=== PATIENT | female | born 1985 | race Caucasian/White ===

== ENCOUNTER 2023-12-27 08:05 | Outpatient (OUT) | payer OTHER, SELFPAY ==
[2023-12-27 09:35] LABS: Alanine Aminotransferase 21 U/L (14-59); Albumin Globulin Ratio 0.9; Albumin Level 3.3 g/dL (3.4-5.0); Alkaline Phosphatase 73 U/L (46-116); Anion Gap 11.4; Aspartate Amino Transferase 11 U/L (15-37); BUN Creatinine Ratio 11.5; Bilirubin Total 0.2 mg/dL (0.2-1.0); Calcium 8.7 mg/dL (8.5-10.1); Carbon Dioxide 28.7 mmol/L (21.0-32.0); Chloride 105 mmol/L (98-107); Chol HDL Ratio 5.4; Cholesterol 209 mg/dL (<=200); Estimated GFR (African America >60 (>=60); Estimated GFR (Non-African Ame >60 (>=60); Globulin 3.6 g/dL; Glucose 92 mg/dL (74-106); HDL Cholesterol 39 mg/dL (40-60); Potassium 4.1 mmol/L (3.5-5.1); Sodium 141 mmol/L (136-145); Thyroid Stimulating Hormone 1.292 uIU/mL (0.358-3.740); Total Protein 6.9 g/dL (6.4-8.2); Triglycerides 110 mg/dL (<=150)
== END 2023-12-27 08:06 | disposition home or self-care (01) ==
DX: Z79.899 Other long term (current) drug therapy (principal)
CPT/HCPCS: 36415; 80053; 80061; 84436; 84443

== ENCOUNTER 2025-01-02 08:08 | Emergency (ER) | payer OTHER, SELFPAY ==
[2025-01-02 08:13] VITALS: BP 135/97; PULSE 96; TEMP 36.9; O2SAT 100; BMI 29.3
--- OUTSIDE RECORDS SUMMARY | 2025-01-02 08:17 | XMS_ITS | CCD ---
Author Organization [facility] Care Team Providers [employer] Professional Name Role Phone NO FAMILY, PHYSICIAN Primary Care Provider Unava DO Mauri Rich Emergency Provider Sol marquez NO FAMILY, PHYSICIAN Primary Care Provider Unava DO Mauri Rich Emergency Provider MD Brandon Oliver Attending Provider [phone] [facility] Primary Care Provide r DO Marie Zelaya Emergency Provider [phone] NO FAMILY, PHYSICIAN Primary Care Provider Unava ilISIDRO [place] Emergency Provider NO FAMILY, PHYSICIAN Primary Care Provider Unava MD Brandon Choi Attending Provider DO Misael Newell Emergency Provider [facility] Primary Care Provide r NO FAMILY, PHYSICIAN Primary Care Provider UnaMD Brandon Wayne Attending Provider DO Hope Moon Attending Provider KIRAN RICCI Admitting Unavaila ble KIRAN RICCI Attending Unavaila ble DELON DALE Consulting Unavailable NO FAMILY, PHYSICIAN Primary Care Provider UnaBrandon Wayne MD Attending Provider [phone] [facility] Primary Care Provide r Radha Akhtar MD Emergency Provider Pelon LYLE, Luis Alberto Admit Provider Pelon LYLE, Luis Alberto Attending Provider [phone] Sravani Allen Attending Unavailable RADHA CHAUDHRY Referring Unavailable Radha Barlow Attending Unavailable NO FAMILY, PHYSICIAN Primary Care Provider Unava ilable Brandon Parson MD Attending Provider Brandon Parson MD Attending Provider Marie Zelaya DO Emergency Provider NO FAMILY, PHYSICIAN Primary Care Provider Unava ilable Misael Newell DO Emergency Provider [phone] Brandon Parson MD Admit Provider NO FAMILY, PHYSICIAN Primary Care Provider Unava ilable NO FAMILY, PHYSICIAN Primary Care Unavailable Luis Alberto Bird Attending Unavailable Brandon Parson Admitting Unavailab Lien Prado Consulting Unavailable Lyndsey Colbert Consulting Unavailable Anne Marie Brasher Consulting Unavailable Patricia Sarah Consulting Unavailable Tori Browning Consulting Unavailable Amanda Acosta Consulting Unavailable Josh Ricketts Consulting Unavailable Raudel Smith Consulting Unavailable Tadeo Toney Consulting UnavailMax Snyder Consulting Unavailable Suellen Regan Consulting Unavailable Pito Fregoso Consulting Unavailable Boni Lamb Consulting Unavailable Darshana Castaneda Consulting UnavailTony Mckeon Consulting Unavailable Maulik Tanner Consulting Unavailable Toney Marshall Consulting Unavailable Sade Payton Consulting Unavailable Pito Simon Consulting Unavailable Arianna Roldan Consulting Unavailable Maynor Metzger Consulting Unavailable Carola Sutherland Consulting Unavailable Rosendo Mueller Consulting Unavailable Mario Hawthorne Consulting Unavailab Rod Qiu Consulting Unavailable Jorge De Oliveira Consulting Unavailable Andreina Cooley Consulting Unavailable Jordy Friedman Consulting Unavailable Chelsea Beckwith Consulting Unavailable Ken Bennett Consulting Unavailable Obeze Shaila Consulting Unavailable Adonis Goodman Consulting Unavailable Daromar, Obayedel Amaya Consulting Unavailable Marilyn Velez Consulting Unavailable Carly Morgan Consulting Unavailable Piyush Matos Consulting Unavailable Jonh Barnes Consulting Unavailable Brett Raygoza Consulting Unavailable Mackenzie Hua Consulting Unavailable Kei De Oliveira Consulting Unavailable Keya Champagne Consulting Unava ilable Lamar Lewis Consulting Unavailable Radha Sanchez Consulting Unavailable Andrew Cody Consulting Unavailable Gio Hernandez Consulting Unavailable Boni Toledo Consulting Unavailable Antonio Guan Consulting Unavailable Gwendolyn Koch Consulting Unavailable [place] Consulting Unavaila Anna Cox Consulting Unavailable Misael Newell Attending Unavailable [facility] Unav ailable Misael Newell Admitting Unavailable Luis E Brewster Attending Unavailable [facility] Unav ailable Luis E Brewster Admitting Unavailable Hope Moon Admitting Unavailable [facility] Unav ailable Hope Moon Attending Unavailable NO FAMILY, PHYSICIAN Primary Care Unavailable Brandon Parson Admitting Unavailab Brandon Blanco Attending Unavailab Marie Hernandez Attending Unavailable Marie Zelaya Admitting Unavailable [facility] Unav ailable Marie Zelaya Admitting Unavailable Marie Zelaya Attending Unavailable [facility] Unav ailable Brandon Parson Attending Unavailab Luis Alberto Johnson Admitting Unavailable [facility] Unav ailable Allergies Allergy Classification Reported Allergen(s) Allergy Type Date of Onset Reaction(s) Facility (10 sources) [place]; Translations: [lithium] Drug Allergy 3 Unknown Reaction [facility] (10 sources) predniSONE; Translations: [prednisone] Drug Allergy 3 Agitated [facility] (7 sources) Latex; Translations: [latex] Allergy to substance 4 Hives [facility] Medications Current Medications Medication Drug Class(es) Dates Sig (Normalized) Sig (Original) Acidophilus Probiotic Blend (2 sources) Start: 06-02-2024 Acidophilus Probiotic Blend Oral, Daily, Refill(s) 0 Start Date: 06/02/24 Status: Ordered cyclobenzaprine hydrochloride 5 mg oral tablet (1 source) Muscle Relaxant Start: 12-08-2024 take 1 tablet by mouth twice daily Cyclobenzaprine 5 mg tablet Active 5 MG PO Twice daily December 08, 2024 12:00am fluPHENAZine hydrochloride 5 mg oral tablet (2 sources) Phenothiazine Start: 12-08-2024 take 1 tablet by mouth once daily at bedtime Fluphenazine Hcl 5 mg tablet Active 5 MG PO Daily at bedtime December 08, 2024 12:00am Start: 12-08-2024 take 1 tablet by davion th once daily Fluphenazine Hcl 2.5 mg Tablet Active 2.5 MG PO Daily December 08, 2024 12:00am hydrOXYzine pamoate 50 mg oral capsule (1 source) Antihistamine Start: 12-08-2024 take 1 capsule by mouth every six hours as needed for anxiety Hydroxyzine Pamoate 50 mg Capsule Active 50 MG PO Q6H as needed for Anxiety December 08, 2024 12:00am magnesium amino acid chelate (2 sources) Start: 06-02-2024 magnesium amino acids chelate Oral, Refills(s) 0 Start Date: 06/02/24 Status: Ordered nicotine 2 mg chewing gum (1 source) Cholinergic Nicotinic Agonist Start: 12-08-2024 Nicotine (Polacrilex) 2 mg Gum Active 2 MG BUCCAL Q2H as needed for Nicotine Cravings December 08, 2024 12:00am Kirkman (No Known Home Meds) (1 source) Start: 12-02-2024 Kirkman (No Known Home Meds) Active December 02, 2024 12:00am OXcarbazepine 300 mg oral tablet (4 sources) Anti-epileptic Agent Start: 12-08-2024 take 1 tablet by mouth once daily at bedtime Oxcarbazepine 300 mg Tablet Active 300 MG PO Daily at bedtime December 08, 2024 12:00am Start: 09-22-2024 End: 12-02-2024 take 1 tablet by mouth twice daily Oxcarbazepine 150 mg Tablet Discontinued 150 MG PO Twice daily September 22, 2024 12:00am December 02, 2024 5:53pm Vitamin B Complex oral capsu le (2 sources) Start: 06-02-2024 Vitamin B Comp dipti oral capsule Oral, Daily, Refill(s) 0 Start Date: 06/02/24 Status: Ordered Vitamin D3 (2 sources) Start: 06-02-2024 Vitamin D3 Ref ills(s) 0 Start Date: 06/02/24 Status: Ordered Completed/Discontinued Medications Medication Drug Class(es) Dates Sig (Normalized) Sig (Original) loperamide hydrochloride 2 mg oral capsule (9 sources) Opioid Agonist Start: 10-29-2023 End: 03-30-2024 take 1 capsule by mouth every six hours as needed Loperamide (Imodium A-D) 2 mg capsule Discontinued 2 MG PO Q6H as needed for loose stool 20 October 29, 2023 12:00am March 30, 2024 5:42pm naproxen 500 mg oral tablet (9 sources) Nonsteroidal Anti-inflammatory Drug Start: 10-29-2023 End: 03-30-2024 take 1 tablet by mouth twice daily as needed for pain Naproxen (Naprosyn) 500 mg tablet Discontinued 500 MG PO Twice daily as needed for pain 10 October 29, 2023 12:00am March 30, 2024 5:42pm omeprazole 20 mg delayed release oral capsule (2 sources) Proton Pump Inhibitor Start: 05-28-2024 omeprazole 20 mg Cap-DR 30 EA, 0 Refill(s), TAKE 1 CAPSULE BY MOUTH TWICE A DAY BEFORE A MEAL, Refills(s) 0 Start Date: 05/28/24 Status: Ordered ondansetron 4 mg oral tablet (9 sources) Serotonin-3 Receptor Antagonist Start: 10-29-2023 End: 03-30-2024 take 1 tablet by mouth every eight hours as needed for nausea and vomiting Ondansetron Hcl 4 mg tablet Discontinued 4 MG PO Q8H as needed for nausea and vomiting 12 October 29, 2023 12:00am March 30, 2024 5:42pm 24 hr paliperidone 6 mg extended release oral tablet (3 sources) Atypical Antipsychotic Start: 09-22-2024 End: 12-02-2024 take 1 tablet by mouth once daily at bedtime Paliperidone 6 mg Tablet Extended Release 24hr Discontinued 6 MG PO Daily at bedtime 15 September 22, 2024 12:00am December 02, 2024 5:53pm Problems Active Problems Problem Classification Problem Date Documented Da te Episodic/Chronic Attention-deficit, conduct, and disruptive behavior disorders (2 sources) Attention deficit hyperactivity disorder 05-28-2024 Chronic Esophageal disorders (2 sources) Gastroesophageal reflux disease without esophagitis 05-28-2024 Chronic Genitourinary symptoms and ill-defined conditions (6 sources) Stress incontinence (female) (male); Translations: [Urge incontinence] Onset: Chronic Headache; including migraine (9 sources) Headache; Translations: [Headache] 10-29-2023 Episodic Mood disorders (10 sources) Bipolar disorder; Translations: [Manic disorder, single episode] Onset: 5 05-28-2024 Chronic Nausea and vomiting (9 sources) Nausea; Translations: [Nausea] 10-29-2023 Episodic Osteoarthritis (2 sources) Osteoarthritis 05-28-2024 Chronic Other connective tissue disease (6 sources) Pain in lower limb; Translations: [Pain in leg, unspecified] 03-30-2024 Episodic Other connective tissue disease (2 sources) Fibromyalgia 05-28-2024 Episodic Other gastrointestinal disorders (9 sources) Diarrhea; Translations: [Diarrhea, unspecified] 10-29-2023 Episodic Schizophrenia and other psychotic disorders (10 sources) Schizoaffective disorder; Translations: [Schizoaffective disorder, unspecified] Onset: 05-28-2024 Chronic Urinary tract infections (2 sources) Urinary tract infectious disease; Translations: [Urinary tract infection, site not specified] 12-02-2024 Episodic Viral infection (2 sources) Herpes simplex 05-28-2024 Episodic Past or Other Problems Problem Classification Problem Date Documented Date Episodic/Chronic Genitourinary symptoms and ill-defined conditions (1 source) Other symptoms and signs involving the genitourinary system; Translations: [Other symptoms and signs involving the genitourinary system] Onset: 05-22-2024 Episodic Malaise and fatigue (8 sources) Fatigue; Translations: [Other fatigue] Onset: 01-23-2024 01-28-2024 Episodic Nonspecific chest pain (7 sources) Atypical chest pain; Translations: [Other chest pain] Onset: 03-30-2024 03-30-2024 Episodic Other connective tissue disease (1 source) Pain in left thigh; Translations: [Pain in left thigh] Onset: 03-30-2024 Episodic Other connective tissue disease (1 source) Fibromyalgia; Translations: [Fibromyalgia] Onset: 01-28-2024 Episodic Other lower respiratory disease (1 source) Shortness of breath; Translations: [Shortness of breath] Onset: 03-30-2024 Episodic Schizophrenia and other psychotic disorders (10 sources) Brief psychotic disorder; Translations: [Acute psychosis] Onset: 08-13-2024 09-14-2024 Episodic Results Test Name Value Interpretation Reference Range Facility Cholesterol [Mass/volume] in Serum or PlasmaOrdered By: Brandon Parson on 12-03-2024 Cholesterol [Mass/Vol] Cholesterol [Mass /volume] in Serum or Plasma 140-200 [facility] Comment on above: Chol less than 200 m g/dl low riskChol 201-239 mg/dl borderline riskChol 240 mg/dl and greater high risk Cholesterol in HDL [Mass/vol ume] in Serum or PlasmaOrdered By: Brandon Parson on 12-03-2024 Cholesterol in HDL [Mass/Vol] Serum or plasma high density lipoprotein (HDL) cholesterol measurement 23-92 [facility] Comment on above: HDL CHOL ATP-III CLA SSIFICATION Cardiovascular RiskHDL > or equal to 60 mg/dL LOWHDL < 40 mg/dL HIGH Cholesterol in LDL Calc [Mas s/Vol]Ordered By: Brandon Parson on 12-03-2024 Cholesterol in LDL [Mass/Vol] Cholesterol in LDL [Mass/volume] in Serum or Plasma by calculation 0-100 [facility] Comment on above: LDL ATP III CLASSIFI CATIONLDL less than 100 mg/dL OptimalLDL 100-129 mg/dL Near or above optimalLDL 130-159 mg/dL Borderline highLDL 160-189 mg/dL HighLDL greater than 189 mg/dL Very high Cholesterol in VLDL Calc [Ma ss/Vol]Ordered By: Brandon Parson on 12-03-2024 Cholesterol in VLDL [Mass/Vol] Cholesterol in VLDL [Mass/volume] in Serum or Plasma by calculation [facility] ECG 12 lead ECGon 12-03-2024 ECG 12 lead ECG [facility] [address] [place] [address] Electrocardiograph Report Signed Patient: Harriet Patino MR#: [id number] 6 : 1985 Acct:[id number] Age/Sex: 39 / F ADM Date: 12/02/24 Loc: Room: [address] [place] [address] Type: ADM IN Attending Dr: Brandon Pasron MD Ordering Provider: Brandon Parson MD Date of Service: 12/03/24 ECG/ECG 12 lead ECG: new admit Copies to: Test Reason : Blood Pressure : */* mmHG Vent. Rate : 59 BPM Atrial Rate : 59 BPM P-R Int : 130 ms QRS Dur : 86 ms QT Int : 376 ms P-R-T Axes : 67 73 47 degrees QTcB Int : 372 ms Sinus bradycardia with sinus arrhythmia Otherwise normal ECG Confirmed by Shaila Ramos ([id number]) on 12/04/2024 1:51:21 PM Referred By: Electronically Signed By: Shaila Ramos Transcribed By: MUS Signed By Shaila Ramos MD 5 [id number] Normal [facility] Lipid Panelon 12-03-2024 Cholesterol [Mass/Vol] 140 mg/dL Normal 140-200 [facility] Comment on above: Result Comment: Chol less than 200 mg/dl low risk Chol 201-239 mg/dl borderline risk Chol 240 mg/dl and greater high risk Performed By: #### V [id number], TSH3 wRFLX, LIPID #### [facility] [address] [id number] [place] Cholesterol in HDL [Mass/Vol] 36 mg/dL Normal 23-92 [facility] Comment on above: Result Comment: HDL CHOL ATP-III CLASSIFICATION Cardiovascular Risk HDL > or equal to 60 mg/dL LOW HDL < 40 mg/dL HIGH Performed By: #### V [id number], TSH3 wRFLX, LIPID #### [facility] [address] [place] [address] [place] Cholesterol.total/Chol esterol in HDL [Mass ratio] 3.9 {ratio} Normal <5.0 [facility] Comment on above: Performed By: #### V [id number], TSH3 wRFLX, LIPID #### [facility] [address] LDL Cholesterol,Calculated 87 mg/dL Normal 0-100 [facility] Comment on above: Result Comment: LDL ATP III CLASSIFICATION LDL less than 100 mg/dL Optimal LDL 100-129 mg/dL Near or above optimal LDL 130-159 mg/dL Borderline high LDL 160-189 mg/dL High LDL greater than 189 mg/dL Very high Performed By: #### V [id number], TSH3 wRFLX, LIPID #### [facility] [address] Triglyceride w/Reflex 84 mg/dL Normal 0-149 [facility] Comment on above: Result Comment: TRIG ATP III CLASSIFICATION TRIG less than 150 mg/dL Normal TRIG 150-199 mg/dL Borderline high TRIG 200-500 mg/dL High TRIG greater than 500 mg/dL Very high Standard traceable to the Center for Disease Conrtrol and Prevention (CDC) test method. Performed By: #### V [id number], TSH3 wRFLX, LIPID #### [address] VLDL CHOLESTEROL 16 mg/dL Normal [facility] Comment on above: Performed By: #### V [id number], TSH3 wRFLX, LIPID #### [address] Serum or plasma total choles terol/high density lipoprotein (HDL) cholesterol mass ratOrdered By: Brandon Parson on 12-03-2024 Cholesterol.total/Chol esterol in HDL [Mass ratio] Serum or plasma total cholesterol/high density lipoprotein (HDL) cholesterol mass rat <5.0 [facility] Thyroid Stim Hormone w/Rflxo n 12-03-2024 Thyroid Stim Hormone w/Rflx 0.87 u[iU]/mL Normal 0.45-5.33 [facility] Comment on above: Performed By: #### V [id number], TSH3 wRFLX, LIPID #### [address] Thyrotropin [Units/volume] i n Serum or PlasmaOrdered By: Brandon Parson on 12-03-2024 TSH Qn Thyrotropin [Units/v olume] in Serum or Plasma 0.45-5.33 [facility] Triglyceride [Mass/volume] i n Serum or PlasmaOrdered By: Brandon Parson on 12-03-2024 Triglyceride [Mass/Vol] Triglyceride [Mass/volume] in Serum or Plasma 0-149 [facility] Comment on above: TRIG ATP III CLASSIF ICATIONTRIG less than 150 mg/dL NormalTRIG 150-199 mg/dL Borderline highTRIG 200-500 mg/dL High TRIG greater than 500 mg/dL Very highStandard traceable to the Center for Disease Conrtrol and Prevention (CDC) test method. Vitamin D 25 Hydroxy Totalon 12-03-2024 Vitamin D 25 Hydroxy Total 58.0 ng/mL Normal 30-100 [facility] Comment on above: Result Comment: AMANDA MIN D STATUS 25([place])VITAMIN D RANGE (ng/mL) Deficient <20 Insufficient 20 to <30 Sufficient 30 to 100 Reference: Van Henry, Maude CUELLAR, et al. Evaluation,treatment, and prevention of vitamin D deficiency; an Endocrine Society clinical practice guideline. JCEM. 2010; 96(7):1911-30. PERFORMED BY: [place] [address] PATHOLOGIST COMMERCIAL MANAGER ISIDRO CORNELL M.D. Performed By: #### V [id number], TSH3 wRFLX, LIPID #### [facility] [address] Vitamin D+Metabolites [Mass/ volume] in Serum or PlasmaOrdered By: Brandon Parson on 12-03-2024 Vitamin D+Metabolites [Mass/Vol] Vitamin D+Metabolites [Mass/volume] in Serum or Plasma 30-100 [facility] Comment on above: VITAMIN D STATUS 25( [place])VITAMIN D RANGE (ng/mL) Deficient <20 Insufficient 20 to <30Sufficient 30 to 100Reference: Van Henry, Maude CUELLAR, et al. Evaluation,treatment, and prevention of vitamin D deficiency; an Endocrine Society clinical practice guideline. JCEM. 2010; 96(7):1911-30. Amorphous sediment detection in urine sediment by light microscopyOrdered By: Misael Newell on 12-02-2024 Amorphous sediment LM Ql (Urine sed) Amorphous urine sediment [facility] Amphetamine Screen Ql (U)Ord ered By: Misael Newell on 12-02-2024 Amphetamines Ql (U) Amphetamines screen Negativ e [facility] Automated epithelial cells c ount in urine sediment (number/area)Ordered By: Misael Newell on 12-02-2024 Epithelial cells Auto (Urine sed) [#/Area] Automated epithelial cells count in urine sediment (number/area) High 0-2 [facility] Automated leukocytes count i n urine sediment (number/area)Ordered By: Misael Newell on 12-02-2024 WBC Auto (Urine sed) [#/Area] Leukocytes [#/area] in Urine sediment by Automated count High 0-4 [facility] Barbiturates [Presence] in U rine by Screen methodOrdered By: Misael Newell on 12-02-2024 Barbiturates Screen Ql (U) Barbiturates [Presence] in Urine by Screen method Negative [facility] Basic Metabolic Panelon 11-05 Anion gap [Moles/Vol] 11.1 mmol/L Normal 6.0-15.0 [facility] Comment on above: Performed By: #### V [id number], TSH3 wRFLX, LIPID #### [facility] [address] [place] [address] [place] Calcium [Mass/Vol] 9.1 mg/dL Normal 8.6-10.3 [facility] Comment on above: Performed By: #### V [id number], TSH3 wRFLX, LIPID #### [facility] [address] [place] [address] [place] Chloride [Moles/Vol] 107 mmol/L Normal 98-107 [facility] Comment on above: Performed By: #### V [id number], TSH3 wRFLX, LIPID #### [facility] [address] [place] CO2 [Moles/Vol] 26.6 mmol/L Normal 21.0-31.0 [facility] Comment on above: Performed By: #### V [id number], TSH3 wRFLX, LIPID #### [address] Creatinine [Mass/Vol] 0.82 mg/dL Normal 0.60-1.20 [facility] Comment on above: Performed By: #### V [id number], TSH3 wRFLX, LIPID #### [place] [address] [place] Creatinine Clr Calc Pharmacy 85.38 Normal [facility] Comment on above: Result Comment: PERF ORMED BY: [place] [address] PATHOLOGIST COMMERCIAL MANAGER ISIDRO CORNELL M.D. Performed By: #### V [id number], TSH3 wRFLX, LIPID #### [place] [address] [place] GFR/1.73 sq M.predicted MDRD (S/P/Bld) [Vol rate/Area] mL/min/{1.73_m2} Normal [facility] Comment on above: Performed By: #### V [id number], TSH3 wRFLX, LIPID #### [place] [address] [place] Glucose [Mass/Vol] 89 mg/dL Normal 70-100 [facility] Comment on above: Result Comment: [place] Glucose Reference Range is dependent on time and content of last meal. Glucose of more than 200 mg/dL in a nonstressed, ambulatory subject supports the diagnosis of Diabetes Mellitus. ADA recommended reference range Performed By: #### V [id number], TSH3 wRFLX, LIPID #### [place] [address] [place] Potassium [Moles/Vol] 4.7 mmol/L Normal 3.5-5.1 [facility] Comment on above: Performed By: #### V [id number], TSH3 wRFLX, LIPID #### [address] [place] [address] [facility] Sodium [Moles/Vol] 140 mmol/L Normal 136-145 [facility] Comment on above: Performed By: #### V [id number], TSH3 wRFLX, LIPID #### [facility] [address] [id number] [place] Urea nitrogen [Mass/Vol] 10 mg/dL Normal 7-25 [facility] Comment on above: Performed By: #### V [id number], TSH3 wRFLX, LIPID #### [facility] [address] [id number] [place] Basophils Auto (Bld) [#/Vol] Ordered By: Misael Newell on 12-02-2024 Basophils (Bld) [#/Vol] Automated basophil count 0.0-0.2 [facility] Basophils/100 WBC Auto (Bld) Ordered By: Misael Newell on 12-02-2024 Basophils/100 WBC (Bld) Automated basophil % . [facility] Benzodiazepines Screen Ql (U )Ordered By: Misael Newell on 12-02-2024 Benzodiazepines Ql (U) Benzodiazepines [ Presence] in Urine by Screen method Negative [facility] Benzoylecgonine [Presence] i n Urine by Screen methodOrdered By: Misael Newell on 12-02-2024 Benzoylecgonine Screen Ql (U) Benzoylecgonine [Presence] in Urine by Screen method Negative [facility] Bilirubin Test strip Ql (U)O rdered By: Misael Newell on 12-02-2024 Bilirubin Ql (U) Bilirubin.total [Pre sence] in Urine by Test strip Negative [facility] Calcium [Mass/volume] in Ser um or PlasmaOrdered By: Misael Newell on 12-02-2024 Calcium [Mass/Vol] Calcium [Mass/volume ] in Serum or Plasma 8.6-10.3 [facility] Cannabinoids [Presence] in U rine by Screen methodOrdered By: Misael Newell on 12-02-2024 Cannabinoids Screen Ql (U) Cannabinoids [Presence] in Urine by Screen method High Negative [facility] Comment on above: These are unconfirme d results and should not be used for legal purposes. Drug Cut-Off Concentration: AMPH 1000 ng/mL SHEBA 200 ng/mL RADHA 200 ng/mL COCM 300 ng/mL OP 300 ng/mL PCP 25 ng/mL THC 20 ng/mL Carbon dioxide, total [Moles /volume] in Serum or PlasmaOrdered By: Misael Newell on 12-02-2024 CO2 [Moles/Vol] Carbon dioxide, tota l [Moles/volume] in Serum or Plasma 21.0-31.0 [facility] Casts [#/area] in Urine sedi ment by Microscopy low power fieldOrdered By: Misael Newell on 12-02-2024 Casts LM.LPF (Urine sed) [#/Area] Casts [#/area] in Urine sediment by Microscopy low power field None Seen [facility] Chloride [Moles/volume] in S claudio or PlasmaOrdered By: Misael Newell on 12-02-2024 Chloride [Moles/Vol] Chloride [Moles/vol ume] in Serum or Plasma 98-107 [facility] Color Auto (U)Ordered By: Mark Newell on 12-02-2024 Color (U) Color of Urine by Auto Abnormal Yellow [facility] Auto Di ffon 12-02-2024 Basophils (Bld) [#/Vol] 0.1 10*3/uL Normal 0.0-0.2 [facility] Comment on above: Result Comment: PERF ORMED BY: [place] [address] PATHOLOGIST COMMERCIAL MANAGER ISIDRO CORNELL M.D. Performed By: #### B MP, CBC, ETOH #### [place] [address] [place] Basophils/100 WBC (Bld) 1.4 % Normal . [facility] Comment on above: Performed By: #### B MP, CBC, ETOH #### [facility] [address] [place] [address] [place] Eosinophils (Bld) [#/Vol] 0.2 10*3/uL Normal 0.0-0.45 [facility] Comment on above: Performed By: #### B MP, CBC, ETOH #### [place] [address] [place] Eosinophils/100 WBC (Bld) 2.5 % Normal . [facility] Comment on above: Performed By: #### B MP, CBC, ETOH #### [address] Erythrocyte distribution width (RBC) [Ratio] 13.8 % Normal 11.9-15.3 [facility] Comment on above: Performed By: #### B MP, CBC, ETOH #### [address] Hematocrit (Bld) [Volume fraction] 42.5 % Normal 34.0-46.4 [facility] Comment on above: Performed By: #### B MP, CBC, ETOH #### [address] Hemoglobin (Bld) [Mass/Vol] 14.5 g/dL Normal 11.8-15.4 [facility] Comment on above: Performed By: #### B MP, CBC, ETOH #### [address] Lymphocytes (Bld) [#/Vol] 1.5 10*3/uL Normal 1.00-4.8 [facility] Comment on above: Performed By: #### B MP, CBC, ETOH #### [address] Lymphocytes/100 WBC (Bld) 24.4 % Normal . [facility] Comment on above: Performed By: #### B MP, CBC, ETOH #### [address] MCH (RBC) [Entitic mass] 31.6 pg Normal 24.7-34.3 [facility] Comment on above: Performed By: #### B MP, CBC, ETOH #### [address] MCV (RBC) [Entitic vol] 92.7 fL Normal 80-100 [facility] Comment on above: Performed By: #### B MP, CBC, ETOH #### [address] Mean Corpuscular HGB Conc 34.1 g/dL Normal 32.0-35.0 [facility] Comment on above: Performed By: #### B MP, CBC, ETOH #### [place] [address] [place] Monocytes (Bld) [#/Vol] 0.5 10*3/uL Normal 0.0-0.8 [facility] Comment on above: Performed By: #### B MP, CBC, ETOH #### [place] [address] [place] Monocytes/100 WBC (Bld) 17.00 % Normal 0.00-20.00 [facility] Comment on above: Performed By: #### B MP, CBC, ETOH #### [place] [address] [place] Monocytes/100 WBC (Bld) 7.9 % Normal . [facility] Comment on above: Performed By: #### B MP, CBC, ETOH #### [place] [address] [place] Neutrophils (Bld) [#/Vol] 4.0 10*3/uL Normal 1.8-7.7 [facility] Comment on above: Performed By: #### B MP, CBC, ETOH #### [place] [address] [place] Neutrophils/100 WBC (Bld) 63.8 % Normal . [facility] Comment on above: Performed By: #### B MP, CBC, ETOH #### [place] [address] [place] NRBC% 0.1 /100{WBC} Normal 0-0.5 [facility] Comment on above: Performed By: #### B MP, CBC, ETOH #### [address] Platelet mean volume (Bld) [Entitic vol] 7.0 fL Normal 6.3-10.7 [facility] Comment on above: Performed By: #### B MP, CBC, ETOH #### [facility] [address] [place] [address] [place] Platelets (Bld) [#/Vol] 317 10*3/uL Normal 150-450 [facility] Comment on above: Performed By: #### B MP, CBC, ETOH #### [facility] [address] RBC (Bld) [#/Vol] 4.58 10*6/uL Normal 3.60-5.00 [facility] Comment on above: Performed By: #### B MP, CBC, ETOH #### [facility] [address] [place] [address] [place] WBC (Bld) [#/Vol] 6.3 10*3/uL Normal 3.8-11.6 [facility] Comment on above: Performed By: #### B MP, CBC, ETOH #### [address] Creatinine [Mass/volume] in Serum or PlasmaOrdered By: Misael Newell on 12-02-2024 Creatinine [Mass/Vol] Creatinine [Mass/v olume] in Serum or Plasma 0.60-1.20 [facility] Dipstick and Microscopicon 0 12-02-2024 Amorphous Sediment,Urine 2+ Normal [facility] Comment on above: Order Comment: Name Collection Type:: Clean-Voided Midstream Performed By: #### U RDS, UHCG, UA #### [place] [address] [place] Appearance (U) Turbid Critically abnormal Clear [facility] Comment on above: Order Comment: Name Collection Type:: Clean-Voided Midstream Performed By: #### U RDS, UHCG, UA #### [facility] [address] [place] [address] [place] Bacteria,Urine 3+ High None Seen [facility] Comment on above: Order Comment: Name Collection Type:: Clean-Voided Midstream Performed By: #### U RDS, UHCG, UA #### [place] [address] [place] Bilirubin,Urine Negative Normal Negative [facility] Comment on above: Order Comment: Name Collection Type:: Clean-Voided Midstream Performed By: #### U RDS, UHCG, UA #### [facility] [address] [place] [address] [place] Color (U) Dark Yellow Critically abnormal Yellow [facility] Comment on above: Order Comment: Name Collection Type:: Clean-Voided Midstream Performed By: #### U RDS, UHCG, UA #### [facility] [address] [place] [address] [place] Glucose Ql (U) Normal Normal Normal [facility] Comment on above: Order Comment: Name Collection Type:: Clean-Voided Midstream Performed By: #### U RDS, UHCG, UA #### [place] [address] [place] Hyaline Casts,Urine None Seen Normal 0-8 [facility] Comment on above: Order Comment: Name Collection Type:: Clean-Voided Midstream Performed By: #### U RDS, UHCG, UA #### [place] [address] [place] Ketones Ql (U) 1+ High Negative [facility] Comment on above: Order Comment: Name Collection Type:: Clean-Voided Midstream Performed By: #### U RDS, UHCG, UA #### [facility] [address] [place] [address] [place] Leukocyte esterase Test strip Ql (U) Negative Normal Negative [facility] Comment on above: Order Comment: Name Collection Type:: Clean-Voided Midstream Performed By: #### U RDS, UHCG, UA #### [facility] [address] [place] [address] [place] Mucus,Urine 2+ Critically abnormal [facility] Comment on above: Order Comment: Name Collection Type:: Clean-Voided Midstream Performed By: #### U RDS, UHCG, UA #### [facility] [address] [place] [address] [place] Nitrite,Urine Negative Normal Negative [facility] Comment on above: Order Comment: Name Collection Type:: Clean-Voided Midstream Performed By: #### U RDS, UHCG, UA #### [address] Occult Blood,Urine 1+ High Negative [facility] Comment on above: Order Comment: Name Collection Type:: Clean-Voided Midstream Performed By: #### U RDS, UHCG, UA #### [address] Other Casts,Urine None Seen Normal None Seen [facility] Comment on above: Order Comment: Name Collection Type:: Clean-Voided Midstream Performed By: #### U RDS, UHCG, UA #### [address] pH (U) 6.0 [pH] Normal 5.0-9.0 [facility] Comment on above: Order Comment: Name Collection Type:: Clean-Voided Midstream Performed By: #### U RDS, UHCG, UA #### [address] Protein,Urine Trace High Negative [facility] Comment on above: Order Comment: Name Collection Type:: Clean-Voided Midstream Performed By: #### U RDS, UHCG, UA #### [address] RBC,Urine 1 [HPF] Normal 0-4 [facility] Comment on above: Order Comment: Name Collection Type:: Clean-Voided Midstream Performed By: #### U RDS, UHCG, UA #### [address] Specificy [place],Urine 1.021 Normal 1.001-1.030 [facility] Comment on above: Order Comment: Name Collection Type:: Clean-Voided Midstream Performed By: #### U RDS, UHCG, UA #### [place] [address] [place] Squamous Epithelial Cell,Urine 20 [HPF] High 0-2 [facility] Comment on above: Order Comment: Name Collection Type:: Clean-Voided Midstream Performed By: #### U RDS, UHCG, UA #### [address] Urobilinogen,Urine Normal Normal Normal [facility] Comment on above: Order Comment: Name Collection Type:: Clean-Voided Midstream Performed By: #### U RDS, UHCG, UA #### [address] WBC,Urine 5 [HPF] High 0-4 [facility] Comment on above: Order Comment: Name Collection Type:: Clean-Voided Midstream Performed By: #### U RDS, UHCG, UA #### [address] Yeast,Urine None Seen Normal None Seen [facility] Comment on above: Order Comment: Name Collection Type:: Clean-Voided Midstream Performed By: #### U RDS, UHCG, UA #### [address] Drug Screen,Urineon 12-02-19 25 Amphetamine Screen,Urine Negative Normal Negative [facility] Comment on above: Performed By: #### U RDS, UHCG, UA #### [address] Barbiturate Screen,Urine Negative Normal Negative [facility] Comment on above: Performed By: #### U RDS, UHCG, UA #### [address] Benzodiazepines Screen,Urine Negative Normal Negative [facility] Comment on above: Performed By: #### U RDS, UHCG, UA #### [address] Cannabinoid Screen,Urine Positive High Negative [facility] Comment on above: Result Comment: Thes e are unconfirmed results and should not be used for legal purposes. Drug Cut-Off Concentration: AMPH 1000 ng/mL SHEBA 200 ng/mL RADHA 200 ng/mL COCM 300 ng/mL OP 300 ng/mL PCP 25 ng/mL THC 20 ng/mL PERFORMED BY: [place] [address] PATHOLOGIST COMMERCIAL MANAGER ISIDRO CORNELL M.D. Performed By: #### U RDS, UHCG, UA #### [facility] [address] Cocaine Screen,Urine Negative Normal Negative [facility] Comment on above: Performed By: #### U RDS, UHCG, UA #### [facility] [address] Opiate Screen,Urine Negative Normal Negative [facility] Comment on above: Performed By: #### U RDS, UHCG, UA #### [facility] [address] Phencyclidine Screen,Urine Negative Normal Negative [facility] Comment on above: Performed By: #### U RDS, UHCG, UA #### [facility] [address] [place] [address] [place] Eosinophils Auto (Bld) [#/Vo l]Ordered By: Misael Newell on 12-02-2024 Eosinophils (Bld) [#/Vol] Automated eosinophil count 0.0-0.45 [facility] Eosinophils/100 WBC Auto (Bl d)Ordered By: Misael Newell on 12-02-2024 Eosinophils/100 WBC (Bld) Automated eosinophil % . [facility] Erythrocyte distribution wid th Auto (RBC) [Ratio]Ordered By: Misael Newell on 12-02-2024 Erythrocyte distribution width (RBC) [Ratio] Erythrocyte distribution width [Ratio] by Automated count 11.9-15.3 [facility] Erythrocytes [#/area] in Uri ne sediment by Automated countOrdered By: Misael Newell on 12-02-2024 RBC Auto (Urine sed) [#/Area] Erythrocytes [#/area] in Urine sediment by Automated count 0-4 [facility] Ethanol [Mass/volume] in Ser um or PlasmaOrdered By: Misael Newell on 12-02-2024 Ethanol [Mass/Vol] Ethanol [Mass/volume ] in Serum or Plasma [facility] Comment on above: Test not performed Ethyl Alcohol Profileon 11-05 Ethanol [Mass/Vol] mg/dL Normal [facility] Comment on above: Performed By: #### B MP, CBC, ETOH #### [facility] [address] Percent Ethanol Not performed Normal [facility] Comment on above: Result Comment: PERF ORMED BY: [facility] [address] [place] [address] PATHOLOGIST COMMERCIAL MANAGER ISIDRO CORNELL M.D. Performed By: #### B MP, CBC, ETOH #### [facility] [address] [place] [id number] [facility] Glucose [Mass/volume] in Ser um or PlasmaOrdered By: Misael Newell on 12-02-2024 Glucose [Mass/Vol] Glucose [Mass/volume ] in Serum or Plasma 70-100 [facility] Comment on above: ADA recommended refe rence rangeRandom Glucose Reference Range is dependent on time and content of last meal. Glucose of more than 200 mg/dL in a nonstressed, ambulatory subject supports the diagnosis of Diabetes Mellitus. HCG ( test) IA.beckyi d Ql (U)Ordered By: Misael Newell on 12-02-2024 HCG ( test) Ql (U) Urine human chorionic gonadotropin (hCG) detection by immunoassay [facility] HCG,Urineon 12-02-2024 Beta HCG ( test) Ql (U) Negative Normal [facility] Comment on above: Order Comment: Name Collection Type:: Clean-Voided Midstream Result Comment: PERF ORMED BY: [place] [address] PATHOLOGIST COMMERCIAL MANAGER ISIDRO CORNELL M.D. Performed By: #### U RDS, UHCG, UA #### [facility] [address] [place], [place] [id number] [facility] Hematocrit Auto (Bld) [Volum e fraction]Ordered By: Misael Newell on 12-02-2024 Hematocrit (Bld) [Volume fraction] Hematocrit [Volume Fraction] of Blood by Automated count 34.0-46.4 [facility] Hemoglobin [Mass/volume] in BloodOrdered By: Misael Newell on 12-02-2024 Hemoglobin (Bld) [Mass/Vol] Hemoglobin [Mass/volume] in Blood 11.8-15.4 [facility] Hyaline casts [#/area] in Ur ine sediment by Automated countOrdered By: Misael Newell on 12-02-2024 Hyaline casts Auto (Urine sed) [#/Area] Hyaline casts [#/area] in Urine sediment by Automated count 0-8 [facility] Ketones Auto test strip (U) [Mass/Vol]Ordered By: Misael Newell on 12-02-2024 Ketones (U) [Mass/Vol] Urine ketones hua surement by automated test strip (mass/volume) High Negative [facility] Leukocytes [#/volume] correc yamila for nucleated erythrocytes in Blood by Automated counOrdered By: Misael Newell on 12-02-2024 WBC corrected for nucl RBC Auto (Bld) [#/Vol] Leukocytes [#/volume] corrected for nucleated erythrocytes in Blood by Automated coun 3.8-11.6 [facility] Lymphocytes Auto (Bld) [#/Vo l]Ordered By: Misael Newell on 12-02-2024 Lymphocytes (Bld) [#/Vol] Lymphocytes [#/volume] in Blood by Automated count 1.00-4.8 [facility] Lymphocytes/100 WBC Auto (Bl d)Ordered By: Misael Newell on 12-02-2024 Lymphocytes/100 WBC (Bld) Lymphocytes/100 leukocytes in Blood by Automated count . [facility] MCH Auto (RBC) [Entitic mass ]Ordered By: Misael Newell on 12-02-2024 MCH (RBC) [Entitic mass] MCH [Entitic mass] by Automated count 24.7-34.3 [facility] MCHC Auto (RBC) [Mass/Vol]Or dered By: Misael Newell on 12-02-2024 MCHC (RBC) [Mass/Vol] MCHC [Mass/volume] by Automated count 32.0-35.0 [facility] MCV Auto (RBC) [Entitic vol] Ordered By: Misael Newell on 12-02-2024 MCV (RBC) [Entitic vol] MCV [Entitic volume] by Automated count 80-100 [facility] Monocyte distribution width [Entitic volume] in Blood by AutomatedOrdered By: Misael Newell on 12-02-2024 Monocyte distribution width Auto (Bld) [Entitic vol] Monocyte distribution width [Entitic volume] in Blood by Automated 0.00-20.00 [facility] Monocytes Auto (Bld) [#/Vol] Ordered By: Misael Newell on 12-02-2024 Monocytes (Bld) [#/Vol] Automated blood monocyte count 0.0-0.8 [facility] Monocytes/100 WBC Auto (Bld) Ordered By: Misael Newell on 12-02-2024 Monocytes/100 WBC (Bld) Automated monocyte % . [facility] Mucus LM Ql (Urine sed)Order ed By: Misael Newell on 12-02-2024 Mucus Ql (Urine sed) Mucus detection in urine sediment by light microscopy Abnormal [facility] Neutrophils Auto (Bld) [#/Vo l]Ordered By: Misael Newell on 12-02-2024 Neutrophils (Bld) [#/Vol] Neutrophils [#/volume] in Blood by Automated count 1.8-7.7 [facility] Neutrophils/100 WBC Auto (Bl d)Ordered By: Misael Newell on 12-02-2024 Neutrophils/100 WBC (Bld) Automated neutrophil % . [facility] Nitrite Test strip Ql (U)Ord ered By: Misael Newell on 12-02-2024 Nitrite Ql (U) Nitrite [Presence] i n Urine by Test strip Negative [facility] No Panel InformationOrdered By: Misael Newell on 12-02-2024 Estimated GFR (CKD-EPI) > 60.0 mL/Min [facility] Creatinine Clearance (Chem 85.38 [facility] Nucleated erythrocytes [Pres ence] in Blood by Automated countOrdered By: Misael Newell on 12-02-2024 Nucleated RBC Auto Ql (Bld) Nucleated erythrocytes [Presence] in Blood by Automated count 0-0.5 [facility] Opiates [Presence] in Urine by Screen methodOrdered By: Misael Newell on 12-02-2024 Opiates Screen Ql (U) Opiates [Presence] in Urine by Screen method Negative [facility] Phencyclidine Screen Ql (U)O rdered By: Misael Newell on 12-02-2024 Phencyclidine Ql (U) Phencyclidine [Pres ence] in Urine by Screen method Negative [facility] Platelet mean volume Auto (B ld) [Entitic vol]Ordered By: Misael Newell on 12-02-2024 Platelet mean volume (Bld) [Entitic vol] Platelet mean volume [Entitic volume] in Blood by Automated count 6.3-10.7 [facility] Platelets Auto (Bld) [#/Vol] Ordered By: Misael Newell on 12-02-2024 Platelets (Bld) [#/Vol] Platelets [#/volume] in Blood by Automated count 150-450 [facility] Potassium [Moles/volume] in Serum or PlasmaOrdered By: Misael Newell on 12-02-2024 Potassium [Moles/Vol] Potassium [Moles/v olume] in Serum or Plasma 3.5-5.1 [facility] Protein Auto test strip (U) [Mass/Vol]Ordered By: Misael Newell on 12-02-2024 Protein (U) [Mass/Vol] Urine protein hua surement by automated test strip (mass/volume) High Negative [facility] RBC Auto (Bld) [#/Vol]Ordere d By: Misael Newell on 12-02-2024 RBC (Bld) [#/Vol] Erythrocytes [#/volu me] in Blood by Automated count 3.60-5.00 [facility] Serum or plasma anion gap de terminationOrdered By: Misael Newell on 12-02-2024 Anion gap [Moles/Vol] Serum or plasma an ion gap determination 6.0-15.0 [facility] Sodium [Moles/volume] in Ser um or PlasmaOrdered By: Misael Newell on 12-02-2024 Sodium [Moles/Vol] Sodium [Moles/volume ] in Serum or Plasma 136-145 [facility] Specific gravity Auto test s trip (U) [Rel density]Ordered By: Misael Newell on 12-02-2024 Specific gravity (U) [Rel density] Specific gravity of Urine by Automated test strip 1.001-1.030 [facility] Urea nitrogen [Mass/volume] in Serum or PlasmaOrdered By: Misael Newell on 12-02-2024 Urea nitrogen [Mass/Vol] Urea nitrogen [Mass/volume] in Serum or Plasma 7-25 [facility] Urine Cultureon 12-02-2024 Bacteria identified Cx Nom (U) Urine Culture Results >100,000 col/ml Mixed Bacterial Skin Contaminants 2 Days PERFORMED BY: [place] [address] PATHOLOGIST COMMERCIAL MANAGER ISIDRO CORNELL M.D. Normal [facility] Comment on above: Performed By: #### V [id number], TSH3 wRFLX, LIPID #### [address] Urine bacteria detection by automated methodOrdered By: Misael Newell on 12-02-2024 Bacteria Auto Ql (U) Bacteria [Presence] in Urine by Automated High None Seen [facility] Urine clarity by refractomet ry automatedOrdered By: Misael Newell on 12-02-2024 Clarity Refractometry automated (U) Urine clarity by refractometry automated Abnormal Clear [facility] Urine cultureOrdered By: Madalyn Parson on 12-02-2024 Bacteria identified Cx Nom (U) Urine culture [facility] Urine glucose measurement by automated test strip (mass/volume)Ordered By: Misael Newell on 12-02-2024 Glucose Auto test strip (U) [Mass/Vol] Urine glucose measurement by automated test strip (mass/volume) Normal [facility] Urine hemoglobin detection b y automated test stripOrdered By: Misael Newell on 12-02-2024 Hemoglobin Auto test strip Ql (U) Urine hemoglobin detection by automated test strip High Negative [facility] Urine leukocyte esterase det ection by automated test stripOrdered By: Misael Newell on 12-02-2024 Leukocyte esterase Auto test strip Ql (U) Urine leukocyte esterase detection by automated test strip Negative [facility] Urobilinogen Auto test strip (U) [Mass/Vol]Ordered By: Misael Newell on 12-02-2024 Urobilinogen (U) [Mass/Vol] Urine urobilinogen measurement by automated test strip (mass/volume) Normal [facility] WBC Auto (Bld) [#/Vol]Ordere d By: Misael Newell on 12-02-2024 WBC (Bld) [#/Vol] Leukocytes [#/volume ] in Blood by Automated count 3.8-11.6 [facility] Yeast detection in urine sed iment by light microscopyOrdered By: Misael Newell on 12-02-2024 Yeast LM Ql (Urine sed) Yeast detection in urine sediment by light microscopy None Seen [facility] pH Auto test strip (U)Ordere d By: Misael Newell on 12-02-2024 pH (U) Urine pH measurement by automated test strip 5.0-9.0 [facility] Appearance of UrineOrdered B y: Luis Alberto Bird on 09-19-2024 Appearance (U) Urine appearance Clear [facility] Bilirubin Test strip Ql (U)O rdered By: Luis Alberto Bird on 09-19-2024 Bilirubin Ql (U) Bilirubin.total [Pre sence] in Urine by Test strip Negative [facility] Color Auto (U)Ordered By: Minh Bidr on 09-19-2024 Color (U) Color of Urine by [facility] Glucose [Mass/volume] in Uri ne by Test stripOrdered By: Luis Alberto Bird on 09-19-2024 Glucose Test strip (U) [Mass/Vol] Glucose [Mass/volume] in Urine by Test strip Normal [facility] HCG ( test) IA.rapi d Ql (U)Ordered By: Luis Alberto Bird on 09-19-2024 HCG ( test) Ql (U) Urine human chorionic gonadotropin (hCG) detection by immunoassay [facility] HCG,Urineon 09-19-2024 Beta HCG ( test) Ql (U) Negative Normal [facility] Comment on above: Result Comment: PERF ORMED BY: [facility] [address] [place] [address] PATHOLOGIST COMMERCIAL MANAGER ISIDRO CORNELL M.D. Performed By: #### U RDS, CG, UA #### [address] Hemoglobin Test strip Ql (U) Ordered By: Luis Alberto Bird on 09-19-2024 Hemoglobin Ql (U) Hemoglobin [Presence ] in Urine by Test strip Negative [facility] Ketones Test strip Ql (U)Ord ered By: Luis Alberto Bird on 09-19-2024 Ketones Ql (U) Ketones [Presence] i n Urine by Test strip Negative [facility] Leukocyte esterase [Presence ] in Urine by Test stripOrdered By: Luis Alberto Bird on 09-19-2024 Leukocyte esterase Test strip Ql (U) Leukocyte esterase [Presence] in Urine by Test strip Negative [facility] Nitrite Test strip Ql (U)Ord ered By: Luis Alberto Bird on 09-19-2024 Nitrite Ql (U) Nitrite [Presence] i n Urine by Test strip Negative [facility] Protein Test strip (U) [Mass /Vol]Ordered By: Luis Alberto Bird on 09-19-2024 Protein (U) [Mass/Vol] Protein [Mass/vol ume] in Urine by Test strip Negative [facility] Specific gravity Test strip (U) [Rel density]Ordered By: Luis Alberto Bird on 09-19-2024 Specific gravity (U) [Rel density] Specific gravity of Urine by Test strip 1.001-1.030 [facility] Urinalysison 09-19-2024 Appearance (U) Clear Normal Clear [facility] Comment on above: Order Comment: Name Collection Type:: Clean-Voided Midstream Performed By: #### U RDS, UHCG, UA #### [facility] [address] [place] [address] [place] Bilirubin,Urine Negative Normal Negative [facility] Comment on above: Order Comment: Name Collection Type:: Clean-Voided Midstream Performed By: #### U RDS, UHCG, UA #### [facility] [address] [place] [address] [place] Color (U) Colorless Normal Yellow [facility] Comment on above: Order Comment: Name Collection Type:: Clean-Voided Midstream Performed By: #### U RDS, UHCG, UA #### [facility] [address] [place] [id number] [place] Glucose Ql (U) Normal Normal Normal [facility] Comment on above: Order Comment: Name Collection Type:: Clean-Voided Midstream Performed By: #### U RDS, UHCG, UA #### [place] [address] [place] Ketones Ql (U) Negative Normal Negative [facility] Comment on above: Order Comment: Name Collection Type:: Clean-Voided Midstream Performed By: #### U RDS, UHCG, UA #### [address] Leukocyte esterase Test strip Ql (U) Negative Normal Negative [facility] Comment on above: Order Comment: Name Collection Type:: Clean-Voided Midstream Performed By: #### U RDS, UHCG, UA #### [place] [address] [place] Nitrite,Urine Negative Normal Negative [facility] Comment on above: Order Comment: Name Collection Type:: Clean-Voided Midstream Performed By: #### U RDS, UHCG, UA #### [place] [address] [place] Occult Blood,Urine Negative Normal Negative [facility] Comment on above: Order Comment: Name Collection Type:: Clean-Voided Midstream Result Comment: PERF ORMED BY: [place] [address] PATHOLOGIST COMMERCIAL MANAGER ISIDRO CORNELL M.D. Performed By: #### U RDS, UHCG, UA #### [place] [address] [place] pH (U) 6.5 [pH] Normal 5.0-9.0 [facility] Comment on above: Order Comment: Name Collection Type:: Clean-Voided Midstream Performed By: #### U RDS, UHCG, UA #### [place] [address] [place] Protein,Urine Negative Normal Negative [facility] Comment on above: Order Comment: Name Collection Type:: Clean-Voided Midstream Performed By: #### U RDS, UHCG, UA #### [place] [address] [place] Specificy [place],Urine 1.003 Normal 1.001-1.030 [facility] Comment on above: Order Comment: Name Collection Type:: Clean-Voided Midstream Performed By: #### U RDS, UHCG, UA #### [facility] [address] Urobilinogen,Urine Normal Normal Normal [facility] Comment on above: Order Comment: Name Collection Type:: Clean-Voided Midstream Performed By: #### U RDS, UHCG, UA #### [facility] [address] Urobilinogen Test strip (U) [Mass/Vol]Ordered By: Luis Alberto Bird on 09-19-2024 Urobilinogen (U) [Mass/Vol] Urobilinogen [Mass/volume] in Urine by Test strip Normal [facility] pH Test strip (U)Ordered By: Luis Alberto Bird on 09-19-2024 pH (U) pH of Urine by Test strip 5.0-9.0 [facility] ECG 12 lead ECGon 09-15-2024 ECG 12 lead ECG [place] [address] Electrocardiograph Report Signed Patient: Harriet Patino MR#: [id number] 6 : 1985 Acct:[id number] Age/Sex: 39 / F ADM Date: 09/14/24 Loc: Room: [address] [place] [address] Type: ADM IN Attending Dr: Luis Alberto Bird MD Ordering Provider: Luis Alberto Bird MD Date of Service: 09/15/2410/27/500 ECG/ECG 12 lead ECG: Use of antipsychotics Copies to: Test Reason : Blood Pressure : */* mmHG Vent. Rate : 73 BPM Atrial Rate : 73 BPM P-R Int : 108 ms QRS Dur : 78 ms QT Int : 338 ms P-R-T Axes : -10 -12 15 degrees QTcB Int : 372 ms Sinus rhythm with marked sinus arrhythmia with short NV Minimal voltage criteria for LVH, may be normal variant ( R in aVL ) Borderline ECG When compared with ECG of 30-Mar-2024 18:43, Questionable change in QRS axis Confirmed by LATESHA FIELD MD ([id number]) on 09/15/2024 5:25:56 PM Referred By: Electronically Signed By: LATESHA FIELD MD Transcribed By: MUS Signed By Latesha Field MD 1 11/15/23 1726 Normal [facility] Alanine aminotransferase [En zymatic activity/volume] in Serum or PlasmaOrdered By: Radha Akhtar on 09-14-2024 ALT [Catalytic activity/Vol] Alanine aminotransferase [Enzymatic activity/volume] in Serum or Plasma 7-52 [facility] Albumin [Mass/volume] in Ser um or Plasma by Bromocresol green (BCG) dye binding methoOrdered By: Radha Akhtar on 09-14-2024 Albumin BCG dye [Mass/Vol] Albumin [Mass/volume] in Serum or Plasma by Bromocresol green (BCG) dye binding metho 3.5-5.7 [facility] Alkaline phosphatase [Enzyma tic activity/volume] in Serum or PlasmaOrdered By: Radha Akhtar on 09-14-2024 ALP [Catalytic activity/Vol] Alkaline phosphatase [Enzymatic activity/volume] in Serum or Plasma 34-104 [facility] Amphetamine Screen Ql (U)Ord ered By: Radha Akhtar on 09-14-2024 Amphetamines Ql (U) Amphetamines screen Negativ e [facility] Appearance of UrineOrdered B y: Radha Akhtar on 09-14-2024 Appearance (U) Urine appearance Clear [facility] Aspartate aminotransferase [ Enzymatic activity/volume] in Serum or PlasmaOrdered By: Radha Akhtar on 09-14-2024 AST [Catalytic activity/Vol] Aspartate aminotransferase [Enzymatic activity/volume] in Serum or Plasma Low 13-39 [facility] Barbiturates [Presence] in U rine by Screen methodOrdered By: Radha Akhtar on 09-14-2024 Barbiturates Screen Ql (U) Barbiturates [Presence] in Urine by Screen method Negative [facility] Basophils Auto (Bld) [#/Vol] Ordered By: Radha Akhtar on 09-14-2024 Basophils (Bld) [#/Vol] Automated basophil count 0.0-0.2 [facility] Basophils/100 WBC Auto (Bld) Ordered By: Radha Akhtar on 09-14-2024 Basophils/100 WBC (Bld) Automated basophil % . [facility] Benzodiazepines Screen Ql (U )Ordered By: Radha Akhtar on 09-14-2024 Benzodiazepines Ql (U) Benzodiazepines [ Presence] in Urine by Screen method Negative [facility] Benzoylecgonine [Presence] i n Urine by Screen methodOrdered By: Radha Akhtar on 09-14-2024 Benzoylecgonine Screen Ql (U) Benzoylecgonine [Presence] in Urine by Screen method Negative [facility] Bilirubin Test strip Ql (U)O rdered By: Radha Akhtar on 09-14-2024 Bilirubin Ql (U) Bilirubin.total [Pre sence] in Urine by Test strip Negative [facility] Bilirubin.total [Mass/volume ] in Serum or PlasmaOrdered By: Radha Akhtar on 09-14-2024 Bilirubin [Mass/Vol] Bilirubin.total [Mass/volume] in Serum or Plasma 0.3-1.0 [facility] Calcium [Mass/volume] in Ser um or PlasmaOrdered By: Radha Akhtar on 09-14-2024 Calcium [Mass/Vol] Calcium [Mass/volume ] in Serum or Plasma 8.6-10.3 [facility] Cannabinoids [Presence] in U rine by Screen methodOrdered By: Radha Akhtar on 09-14-2024 Cannabinoids Screen Ql (U) Cannabinoids [Presence] in Urine by Screen method High Negative [facility] Comment on above: These are unconfirme d results and should not be used for legal purposes. Drug Cut-Off Concentration: AMPH 1000 ng/mL SHEBA 200 ng/mL RADHA 200 ng/mL COCM 300 ng/mL OP 300 ng/mL PCP 25 ng/mL THC 20 ng/mL Carbon dioxide, total [Moles /volume] in Serum or PlasmaOrdered By: Radha Akhtar on 09-14-2024 CO2 [Moles/Vol] Carbon dioxide, tota l [Moles/volume] in Serum or Plasma 21.0-31.0 [facility] Chloride [Moles/volume] in S claudio or PlasmaOrdered By: Radha Akhtar on 09-14-2024 Chloride [Moles/Vol] Chloride [Moles/vol ume] in Serum or Plasma 98-107 [facility] Cholesterol [Mass/volume] in Serum or PlasmaOrdered By: Radha Akhtar on 09-14-2024 Cholesterol [Mass/Vol] Cholesterol [Mass /volume] in Serum or Plasma 140-200 [facility] Comment on above: Chol less than 200 m g/dl low riskChol 201-239 mg/dl borderline riskChol 240 mg/dl and greater high risk Cholesterol in HDL [Mass/vol ume] in Serum or PlasmaOrdered By: Radha Akhtar on 09-14-2024 Cholesterol in HDL [Mass/Vol] Serum or plasma high density lipoprotein (HDL) cholesterol measurement [facility] Comment on above: HDL CHOL ATP-III CLA SSIFICATION Cardiovascular RiskHDL > or equal to 60 mg/dL LOWHDL < 40 mg/dL HIGH Cholesterol in LDL Calc [Mas s/Vol]Ordered By: Radha Akhtar on 09-14-2024 Cholesterol in LDL [Mass/Vol] Cholesterol in LDL [Mass/volume] in Serum or Plasma by calculation High 0-100 [facility] Comment on above: LDL ATP III CLASSIFI CATIONLDL less than 100 mg/dL OptimalLDL 100-129 mg/dL Near or above optimalLDL 130-159 mg/dL Borderline highLDL 160-189 mg/dL HighLDL greater than 189 mg/dL Very high Cholesterol in VLDL Calc [Ma ss/Vol]Ordered By: Radha Akhtar on 09-14-2024 Cholesterol in VLDL [Mass/Vol] Cholesterol in VLDL [Mass/volume] in Serum or Plasma by calculation [facility] Color Auto (U)Ordered By: Isaiah Akhtar on 09-14-2024 Color (U) Color of Urine by Auto Yellow Fi [facility] Complete Blood Count Auto Di ffon 09-14-2024 Basophils (Bld) [#/Vol] 0.1 10*3/uL Normal 0.0-0.2 [facility] Comment on above: Result Comment: PERF ORMED BY: [place] [address] PATHOLOGIST COMMERCIAL MANAGER CHESTER HANNON M.D. Performed By: #### U RDS, UHCG, UA #### [address] Basophils/100 WBC (Bld) 1.5 % Normal . [facility] Comment on above: Performed By: #### U RDS UHCG, UA #### [address] Eosinophils (Bld) [#/Vol] 0.1 10*3/uL Normal 0.0-0.45 [facility] Comment on above: Performed By: #### U RDS CG, UA #### [address] Eosinophils/100 WBC (Bld) 0.7 % Normal . [facility] Comment on above: Performed By: #### U JACKI CG, UA #### [address] Erythrocyte distribution width (RBC) [Ratio] 14.3 % Normal 11.9-15.3 [facility] Comment on above: Performed By: #### U JACKI CG, UA #### [address] Hematocrit (Bld) [Volume fraction] 47.9 % High 34.0-46.4 [facility] Comment on above: Performed By: #### U JACKI CG, UA #### [address] Hemoglobin (Bld) [Mass/Vol] 16.5 g/dL High 11.8-15.4 [facility] Comment on above: Performed By: #### U JACKI CG, UA #### [address] Lymphocytes (Bld) [#/Vol] 1.7 10*3/uL Normal 1.00-4.8 [facility] Comment on above: Performed By: #### U RDS CG, UA #### [address] Lymphocytes/100 WBC (Bld) 19.0 % Normal . [facility] Comment on above: Performed By: #### U RDS UHCG, UA #### [address] MCH (RBC) [Entitic mass] 31.8 pg Normal 24.7-34.3 [facility] Comment on above: Performed By: #### U [facility]DS, [facility] #### [address] MCV (RBC) [Entitic vol] 92.4 fL Normal 80-100 [facility] Comment on above: Performed By: #### U RDS, [facility], [facility] #### [address] Mean Corpuscular HGB Conc 34.4 g/dL Normal 32.0-35.0 [facility] Comment on above: Performed By: #### U RDS, [facility] [place], UA #### [address] Monocytes (Bld) [#/Vol] 0.6 10*3/uL Normal 0.0-0.8 [facility] Comment on above: Performed By: #### U RDS, [facility] [place], UA #### [address] Monocytes/100 WBC (Bld) 16.67 % Normal 0.00-20.00 [facility] Comment on above: Performed By: #### U JACKI, [facility] [place], UA #### [place] [address] [place] Monocytes/100 WBC (Bld) 6.9 % Normal . [facility] Comment on above: Performed By: #### U RDS, [facility], [facility]A #### [place] [address] [place] Neutrophils (Bld) [#/Vol] 6.5 10*3/uL Normal 1.8-7.7 [facility] Comment on above: Performed By: #### U RDS, [facility] #### [address] Neutrophils/100 WBC (Bld) 71.9 % Normal . [facility] Comment on above: Performed By: #### U RDS, UHCG, UA #### [address] NRBC% 0.0 /100{WBC} Normal 0-0.5 [facility] Comment on above: Performed By: #### U RDS, UHCG, UA #### [address] Platelet mean volume (Bld) [Entitic vol] 7.3 fL Normal 6.3-10.7 [facility] Comment on above: Performed By: #### U RDS, UHCG, UA #### [address] Platelets (Bld) [#/Vol] 344 10*3/uL Normal 150-450 [facility] Comment on above: Performed By: #### U RDS, UHCG, UA #### [address] RBC (Bld) [#/Vol] 5.19 10*6/uL High 3.60-5.00 [facility] Comment on above: Performed By: #### U RDS, CG, UA #### [address] WBC (Bld) [#/Vol] 9.1 10*3/uL Normal 3.8-11.6 [facility] Comment on above: Performed By: #### U RDS, UHCG, UA #### [address] Comprehensive Metabolic Pane frederic 09-14-2024 Albumin [Mass/Vol] 4.8 g/dL Normal 3.5-5.7 [facility] Comment on above: Performed By: #### U RDS, UHCG, UA #### [address] Albumin/Globulin [Mass ratio] 1.5 {ratio} Normal [facility] Comment on above: Performed By: #### U RDS, UHCG, UA #### [address] [address] [place] ALP [Catalytic activity/Vol] 89 U/L Normal 34-104 [facility] Comment on above: Performed By: #### U JACKI CG, UA #### [address] ALT [Catalytic activity/Vol] 12 U/L Normal 7-52 [facility] Comment on above: Performed By: #### U JACKI CG, UA #### [address] Anion gap [Moles/Vol] 12.4 mmol/L Normal 6.0-15.0 [facility] Comment on above: Performed By: #### U JACKI MaiG, UA #### [address] AST [Catalytic activity/Vol] 12 U/L Low 13-39 [facility] Comment on above: Performed By: #### U JACKI MaiG, UA #### [address] Bilirubin [Mass/Vol] 0.5 mg/dL Normal 0.3-1.0 [facility] Comment on above: Performed By: #### U JACKI MaiG, UA #### [address] Calcium [Mass/Vol] 9.7 mg/dL Normal 8.6-10.3 [facility] Comment on above: Performed By: #### U STACY ECHEVERRIACG, UA #### [address] Chloride [Moles/Vol] 103 mmol/L Normal 98-107 [facility] Comment on above: Performed By: #### U JACKI CG, UA #### [address] CO2 [Moles/Vol] 27.1 mmol/L Normal 21.0-31.0 [facility] Comment on above: Performed By: #### U JACKI CG, UA #### [address] [place] [address] [place] Creatinine [Mass/Vol] 0.84 mg/dL Normal 0.60-1.20 [facility] Comment on above: Performed By: #### U RDS, UHCG, UA #### [facility] [address] Creatinine Clr Calc Pharmacy 87.00 Normal [facility] Comment on above: Result Comment: PERF ORMED BY: [place] [address] PATHOLOGIST COMMERCIAL MANAGER CHESTER HANNON M.D. Performed By: #### U RDS, UHCG, UA #### [place] [address] [place] GFR/1.73 sq M.predicted MDRD (S/P/Bld) [Vol rate/Area] mL/min/{1.73_m2} Normal [facility] Comment on above: Performed By: #### U RDS, CG, UA #### [address] Globulin (S) [Mass/Vol] 3.1 g/dL Normal [facility] Comment on above: Performed By: #### U RDS, UHCG, UA #### [address] Glucose [Mass/Vol] 93 mg/dL Normal 70-100 [facility] Comment on above: Result Comment: [place] Glucose Reference Range is dependent on time and content of last meal. Glucose of more than 200 mg/dL in a nonstressed, ambulatory subject supports the diagnosis of Diabetes Mellitus. ADA recommended reference range Performed By: #### U RDS, UHCG, UA #### [address] Potassium [Moles/Vol] 3.5 mmol/L Normal 3.5-5.1 [facility] Comment on above: Performed By: #### U RDS, UHCG, UA #### [address] Protein [Mass/Vol] 7.9 g/dL Normal 6.4-8.9 [facility] Comment on above: Performed By: #### U RDS, UHCG, UA #### [facility] [address] Sodium [Moles/Vol] 139 mmol/L Normal 136-145 [facility] Comment on above: Performed By: #### U RDS, UHCG, UA #### [address] Urea nitrogen [Mass/Vol] 5 mg/dL Low 7-25 [facility] Comment on above: Performed By: #### U RDS, UHCG, UA #### [facility] [address] Creatinine [Mass/volume] in Serum or PlasmaOrdered By: Radha Akhtar on 09-14-2024 Creatinine [Mass/Vol] Creatinine [Mass/v olume] in Serum or Plasma 0.60-1.20 [facility] D-Dimer High Sensitivityon 1 11-14-2023 D-Dimer High Sensitivity <200 Normal 0-243 [facility] Comment on above: Result Comment: The reference range for D-dimer is <243 ng/mL D-dimer units. D-dimer results must be used in conjunction with a clinical pretest probability (PTP) assessment model for deep vein thrombosis (DVT) and pulmonary embolism (PE). Results <230 ng/mL d-dimer units can be used as a negative predictor in patients with low or moderate probability for DVT/PE. Results above the exclusion threshold of 230 ng/ml D-dimer units for DVT/PE may indicate the need for further diagnostic testing. D-Dimer can be increased in hospitalized patients due to co-morbid conditions. A hematocrit value greater than 55% may lead to inaccurate results in coagulation testing. Patients having hematocrit values >55% require a special collection tube for coagulation studies. Please contact the laboratory at [phone] for redraw instructions. PERFORMED BY: [place] [address] PATHOLOGIST COMMERCIAL MANAGER CHESTER HANNON M.D. Performed By: #### V [id number], TSH3 wRFLX, LIPID #### [address] Drug Screen,Urineon 09-14-20 24 Amphetamine Screen,Urine Negative Normal Negative [facility] Comment on above: Performed By: #### U RDS, CG, UA #### [address] Barbiturate Screen,Urine Negative Normal Negative [facility] Comment on above: Performed By: #### U RDS, CG, UA #### [address] Benzodiazepines Screen,Urine Negative Normal Negative [facility] Comment on above: Performed By: #### U RDS, CG, UA #### [address] Cannabinoid Screen,Urine Positive High Negative [facility] Comment on above: Result Comment: Thes e are unconfirmed results and should not be used for legal purposes. Drug Cut-Off Concentration: AMPH 1000 ng/mL SHEBA 200 ng/mL RADHA 200 ng/mL COCM 300 ng/mL OP 300 ng/mL PCP 25 ng/mL THC 20 ng/mL PERFORMED BY: [place] [address] PATHOLOGIST COMMERCIAL MANAGER CHESTER HANNON M.D. Performed By: #### U RDS, [facility] [place], UA #### [address] Cocaine Screen,Urine Negative Normal Negative [facility] Comment on above: Performed By: #### U RDS, CG, UA #### [address] Opiate Screen,Urine Negative Normal Negative [facility] Comment on above: Performed By: #### U RDS, CG, UA #### [address] Phencyclidine Screen,Urine Negative Normal Negative [facility] Comment on above: Performed By: #### U RDS, CG, UA #### [place] [address] [place] Eosinophils Auto (Bld) [#/Vo l]Ordered By: Radha Akhtar on 09-14-2024 Eosinophils (Bld) [#/Vol] Automated eosinophil count 0.0-0.45 [facility] Eosinophils/100 WBC Auto (Bl d)Ordered By: Radha Akhtar on 09-14-2024 Eosinophils/100 WBC (Bld) Automated eosinophil % . [facility] Erythrocyte distribution wid th Auto (RBC) [Ratio]Ordered By: Radha Akhtar on 09-14-2024 Erythrocyte distribution width (RBC) [Ratio] Erythrocyte distribution width [Ratio] by Automated count 11.9-15.3 [facility] Ethanol [Mass/volume] in Ser um or PlasmaOrdered By: Radha Akhtar on 09-14-2024 Ethanol [Mass/Vol] Ethanol [Mass/volume ] in Serum or Plasma [facility] Comment on above: Test not performed Ethyl Alcohol Profileon 09-04 Ethanol [Mass/Vol] mg/dL Normal [facility] Comment on above: Performed By: #### U [facility], [facility] [place], #### [facility] [address] Percent Ethanol Not performed Normal [facility] Comment on above: Result Comment: PERF ORMED BY: [place] [address] PATHOLOGIST COMMERCIAL MANAGER CHESTER HANNON M.D. Performed By: #### U [facility], [facility] [place], #### [address] Fibrin D-dimer [Presence] in Platelet poor plasma by Latex agglutinationOrdered By: Radha Akhtar on 09-14-2024 Fibrin D-dimer LA Ql (PPP) Fibrin D-dimer [Presence] in Platelet poor plasma by Latex agglutination 0-243 [facility] Comment on above: The reference range for D-dimer is <243 ng/mL D-dimer units.D-dimer results must be used in conjunction with a clinicalpretest probability (PTP) assessment model for deep veinthrombosis (DVT) and pulmonary embolism (PE). Results <230ng/mL d-dimer units can be used as a negative predictor inpatients with low or moderate probability for DVT/PE.Results above the exclusion threshold of 230 ng/ml D-dimerunits for DVT/PE may indicate the need for furtherdiagnostic testing.D-Dimer can be increased in hospitalized patients due toco-morbid conditions.A hematocrit value greater than 55% may lead to inaccurate results in coagulation testing. Patients having hematocrit values >55% require a special collection tube for coagulation studies. Please contact the laboratory at [phone] for redraw instructions. Globulin Calc (S) [Mass/Vol] Ordered By: Radha Akhtar on 09-14-2024 Globulin (S) [Mass/Vol] Serum globulin measurement by calculation (mass/volume) [facility] Glucose [Mass/volume] in Ser um or PlasmaOrdered By: Radha Akhtar on 09-14-2024 Glucose [Mass/Vol] Glucose [Mass/volume ] in Serum or Plasma 70-100 [facility] Comment on above: ADA recommended refe rence rangeRandom Glucose Reference Range is dependent on time and content of last meal. Glucose of more than 200 mg/dL in a nonstressed, ambulatory subject supports the diagnosis of Diabetes Mellitus. Glucose [Mass/volume] in Uri ne by Test stripOrdered By: Radha Akhtar on 09-14-2024 Glucose Test strip (U) [Mass/Vol] Glucose [Mass/volume] in Urine by Test strip Normal [facility] HCG ( test) IA.rapi d Ql (U)Ordered By: Radha Akhtar on 09-14-2024 HCG ( test) Ql (U) Urine human chorionic gonadotropin (hCG) detection by immunoassay [facility] HCG,Urineon 09-14-2024 Beta HCG ( test) Ql (U) Negative Normal [facility] Comment on above: Order Comment: Name Collection Type:: Clean-Voided Midstream Result Comment: PERF ORMED BY: [address] [place] [address] PATHOLOGIST COMMERCIAL MANAGER CHESTER HANNON M.D. Performed By: #### U RDS, UHCG, UA #### [address] [address] [facility] Hematocrit Auto (Bld) [Volum e fraction]Ordered By: Radha Akhtar on 11-11-2024 Hematocrit (Bld) [Volume fraction] Hematocrit [Volume Fraction] of Blood by Automated count High 34.0-46.4 [facility] Hemoglobin Test strip Ql (U) Ordered By: Radha Akhtar on 09-14-2024 Hemoglobin Ql (U) Hemoglobin [Presence ] in Urine by Test strip Negative [facility] Hemoglobin [Mass/volume] in BloodOrdered By: Radha Akhtar on 09-14-2024 Hemoglobin (Bld) [Mass/Vol] Hemoglobin [Mass/volume] in Blood High 11.8-15.4 [facility] Ketones Test strip Ql (U)Ord ered By: Radha Akhtar on 09-14-2024 Ketones Ql (U) Ketones [Presence] i n Urine by Test strip Negative [facility] Leukocyte esterase [Presence ] in Urine by Test stripOrdered By: Radha Akhtar on 09-14-2024 Leukocyte esterase Test strip Ql (U) Leukocyte esterase [Presence] in Urine by Test strip Negative [facility] Leukocytes [#/volume] correc yamila for nucleated erythrocytes in Blood by Automated counOrdered By: Radha Akhtar on 09-14-2024 WBC corrected for nucl RBC Auto (Bld) [#/Vol] Leukocytes [#/volume] corrected for nucleated erythrocytes in Blood by Automated coun 3.8-11.6 [facility] Lipid Panelon 09-14-2024 Cholesterol [Mass/Vol] 182 mg/dL Normal 140-200 [facility] Comment on above: Result Comment: Chol less than 200 mg/dl low risk Chol 201-239 mg/dl borderline risk Chol 240 mg/dl and greater high risk Performed By: #### U RDS, CG, UA #### [facility] [address] [id number] [place] Cholesterol in HDL [Mass/Vol] 60 mg/dL Normal 23-92 [facility] Comment on above: Result Comment: HDL CHOL ATP-III CLASSIFICATION Cardiovascular Risk HDL > or equal to 60 mg/dL LOW HDL < 40 mg/dL HIGH Performed By: #### U RDS, UHCG, UA #### [facility] [address] [id number] [place] Cholesterol.total/Chol esterol in HDL [Mass ratio] 3.0 {ratio} Normal <5.0 [facility] Comment on above: Performed By: #### U [facility] [place] [facility] [place], UA #### [facility] [address] LDL Cholesterol,Calculated 103 mg/dL High 0-100 [facility] Comment on above: Result Comment: LDL ATP III CLASSIFICATION LDL less than 100 mg/dL Optimal LDL 100-129 mg/dL Near or above optimal LDL 130-159 mg/dL Borderline high LDL 160-189 mg/dL High LDL greater than 189 mg/dL Very high Performed By: #### U [facility] [place] [place], UA #### [facility] [address] Triglyceride w/Reflex 94 mg/dL Normal 0-149 [facility] Comment on above: Result Comment: TRIG ATP III CLASSIFICATION TRIG less than 150 mg/dL Normal TRIG 150-199 mg/dL Borderline high TRIG 200-500 mg/dL High TRIG greater than 500 mg/dL Very high Standard traceable to the Center for Disease Conrtrol and Prevention (CDC) test method. Performed By: #### U [facility], [facility] [place] [place], UA #### [facility] [address] VLDL CHOLESTEROL 18 mg/dL Normal [facility] Comment on above: Performed By: #### U [facility] [place] [facility] [place], UA #### [facility] [address] [id number] [facility] Lymphocytes Auto (Bld) [#/Vo l]Ordered By: Radha Akhtar on 09-14-2024 Lymphocytes (Bld) [#/Vol] Lymphocytes [#/volume] in Blood by Automated count 1.00-4.8 [facility] Lymphocytes/100 WBC Auto (Bl d)Ordered By: Radha Akhtar on 09-14-2024 Lymphocytes/100 WBC (Bld) Lymphocytes/100 leukocytes in Blood by Automated count . [facility] MCH Auto (RBC) [Entitic mass ]Ordered By: Radha Akhtar on 09-14-2024 MCH (RBC) [Entitic mass] MCH [Entitic mass] by Automated count 24.7-34.3 [facility] MCHC Auto (RBC) [Mass/Vol]Or dered By: Radha Akhtar on 09-14-2024 MCHC (RBC) [Mass/Vol] MCHC [Mass/volume] by Automated count 32.0-35.0 [facility] MCV Auto (RBC) [Entitic vol] Ordered By: Radha Akhtar on 09-14-2024 MCV (RBC) [Entitic vol] MCV [Entitic volume] by Automated count 80-100 [facility] Monocyte distribution width [Entitic volume] in Blood by AutomatedOrdered By: Radha Akhtar on 09-14-2024 Monocyte distribution width Auto (Bld) [Entitic vol] Monocyte distribution width [Entitic volume] in Blood by Automated 0.00-20.00 [facility] Monocytes Auto (Bld) [#/Vol] Ordered By: Radha Akhtar on 09-14-2024 Monocytes (Bld) [#/Vol] Automated blood monocyte count 0.0-0.8 [facility] Monocytes/100 WBC Auto (Bld) Ordered By: Radha Akhtar on 09-14-2024 Monocytes/100 WBC (Bld) Automated monocyte % . [facility] Neutrophils Auto (Bld) [#/Vo l]Ordered By: Radha Akhtar on 09-14-2024 Neutrophils (Bld) [#/Vol] Neutrophils [#/volume] in Blood by Automated count 1.8-7.7 [facility] Neutrophils/100 WBC Auto (Bl d)Ordered By: Radha Akhtar on 09-14-2024 Neutrophils/100 WBC (Bld) Automated neutrophil % . [facility] Nitrite Test strip Ql (U)Ord ered By: Radha Akhtar on 09-14-2024 Nitrite Ql (U) Nitrite [Presence] i n Urine by Test strip Negative [facility] No Panel InformationOrdered By: Radha Akhtar on 09-14-2024 Estimated GFR (CKD-EPI) > 60.0 mL/Min [facility] Creatinine Clearance (Chem 87.00 [facility] Nucleated erythrocytes [Pres ence] in Blood by Automated countOrdered By: Radha Akhtar on 09-14-2024 Nucleated RBC Auto Ql (Bld) Nucleated erythrocytes [Presence] in Blood by Automated count 0-0.5 [facility] Opiates [Presence] in Urine by Screen methodOrdered By: Radha Akhtar on 09-14-2024 Opiates Screen Ql (U) Opiates [Presence] in Urine by Screen method Negative [facility] Phencyclidine Screen Ql (U)O rdered By: Radha Akhtar on 09-14-2024 Phencyclidine Ql (U) Phencyclidine [Pres ence] in Urine by Screen method Negative [facility] Platelet mean volume Auto (B ld) [Entitic vol]Ordered By: Radha Akhtar on 09-14-2024 Platelet mean volume (Bld) [Entitic vol] Platelet mean volume [Entitic volume] in Blood by Automated count 6.3-10.7 [facility] Platelets Auto (Bld) [#/Vol] Ordered By: Radha Akhtar on 09-14-2024 Platelets (Bld) [#/Vol] Platelets [#/volume] in Blood by Automated count 150-450 [facility] Potassium [Moles/volume] in Serum or PlasmaOrdered By: Radha Akhtar on 09-14-2024 Potassium [Moles/Vol] Potassium [Moles/v olume] in Serum or Plasma 3.5-5.1 [facility] Protein Test strip (U) [Mass /Vol]Ordered By: Radha Akhtar on 09-14-2024 Protein (U) [Mass/Vol] Protein [Mass/vol ume] in Urine by Test strip Negative [facility] Protein [Mass/volume] in Ser um or PlasmaOrdered By: Radha Akhtar on 09-14-2024 Protein [Mass/Vol] Protein [Mass/volume ] in Serum or Plasma 6.4-8.9 [facility] RBC Auto (Bld) [#/Vol]Ordere d By: Radha Akhtar on 09-14-2024 RBC (Bld) [#/Vol] Erythrocytes [#/volu me] in Blood by Automated count High 3.60-5.00 [facility] Serum or plasma albumin/glob ulin mass ratioOrdered By: Radha Akhtar on 09-14-2024 Albumin/Globulin [Mass ratio] Serum or plasma albumin/globulin mass ratio [facility] Serum or plasma anion gap de terminationOrdered By: Radha Akhtar on 09-14-2024 Anion gap [Moles/Vol] Serum or plasma an ion gap determination 6.0-15.0 [facility] Serum or plasma total choles terol/high density lipoprotein (HDL) cholesterol mass ratOrdered By: Radha Akhtar on 09-14-2024 Cholesterol.total/Chol esterol in HDL [Mass ratio] Serum or plasma total cholesterol/high density lipoprotein (HDL) cholesterol mass rat <5.0 [facility] Sodium [Moles/volume] in Ser um or PlasmaOrdered By: Radha Akhtar on 09-14-2024 Sodium [Moles/Vol] Sodium [Moles/volume ] in Serum or Plasma 136-145 [facility] Specific gravity Test strip (U) [Rel density]Ordered By: Radha Akhtar on 09-14-2024 Specific gravity (U) [Rel density] Specific gravity of Urine by Test strip 1.001-1.030 [facility] Thyroid Stim Hormone w/Rflxo n 09-14-2024 Thyroid Stim Hormone w/Rflx 1.26 u[iU]/mL Normal 0.45-5.33 [facility] Comment on above: Performed By: #### U RDS, CG, UA #### [address] Thyrotropin [Units/volume] i n Serum or PlasmaOrdered By: Radha Akhtar on 09-14-2024 TSH Qn Thyrotropin [Units/v olume] in Serum or Plasma 0.45-5.33 [facility] Triglyceride [Mass/volume] i n Serum or PlasmaOrdered By: Radha Akhtar on 09-14-2024 Triglyceride [Mass/Vol] Triglyceride [Mass/volume] in Serum or Plasma 0-149 [facility] Comment on above: TRIG ATP III CLASSIF ICATIONTRIG less than 150 mg/dL NormalTRIG 150-199 mg/dL Borderline highTRIG 200-500 mg/dL High TRIG greater than 500 mg/dL Very highStandard traceable to the Center for Disease Conrtrol and Prevention (CDC) test method. Urea nitrogen [Mass/volume] in Serum or PlasmaOrdered By: Radha Akhtar on 09-14-2024 Urea nitrogen [Mass/Vol] Urea nitrogen [Mass/volume] in Serum or Plasma Low 7-25 [facility] Urinalysison 11-11-2024 Appearance (U) Clear Normal Clear [facility] Comment on above: Order Comment: Name Collection Type:: Clean-Voided Midstream Performed By: #### U RDS, UHCG, UA #### [facility] [address] [place] [address] [place] Bilirubin,Urine Negative Normal Negative [facility] Comment on above: Order Comment: Name Collection Type:: Clean-Voided Midstream Performed By: #### U RDS, UHCG, UA #### [facility] [address] [place] [address] [place] Color (U) Colorless Normal Yellow [facility] Comment on above: Order Comment: Name Collection Type:: Clean-Voided Midstream Performed By: #### U RDS, UHCG, UA #### [facility] [address] [place] [address] Glucose Ql (U) Normal Normal Normal [facility] Comment on above: Order Comment: Name Collection Type:: Clean-Voided Midstream Performed By: #### U RDS, UHCG, UA #### [place] [address] [place] Ketones Ql (U) Negative Normal Negative [facility] Comment on above: Order Comment: Name Collection Type:: Clean-Voided Midstream Performed By: #### U RDS, UHCG, UA #### [address] Leukocyte esterase Test strip Ql (U) Negative Normal Negative [facility] Comment on above: Order Comment: Name Collection Type:: Clean-Voided Midstream Performed By: #### U RDS, UHCG, UA #### [place] [address] [place] Nitrite,Urine Negative Normal Negative [facility] Comment on above: Order Comment: Name Collection Type:: Clean-Voided Midstream Performed By: #### U RDS, UHCG, UA #### [facility] [address] [place] [address] [place] Occult Blood,Urine Negative Normal Negative [facility] Comment on above: Order Comment: Name Collection Type:: Clean-Voided Midstream Performed By: #### U RDS, UHCG, UA #### [facility] [address] pH (U) 7.0 [pH] Normal 5.0-9.0 [facility] Comment on above: Order Comment: Name Collection Type:: Clean-Voided Midstream Performed By: #### U RDS, UHCG, UA #### [facility] [address] Protein,Urine Negative Normal Negative [facility] Comment on above: Order Comment: Name Collection Type:: Clean-Voided Midstream Performed By: #### U RDS, UHCG, UA #### [facility] [address] Specificy [place],Urine 1.003 Normal 1.001-1.030 [facility] Comment on above: Order Comment: Name Collection Type:: Clean-Voided Midstream Performed By: #### U RDS, UHCG, UA #### [facility] [address] Urobilinogen,Urine Normal Normal Normal [facility] Comment on above: Order Comment: Name Collection Type:: Clean-Voided Midstream Performed By: #### U RDS, UHCG, UA #### [facility] [address] Urobilinogen Test strip (U) [Mass/Vol]Ordered By: Radha Akhtar on 09-14-2024 Urobilinogen (U) [Mass/Vol] Urobilinogen [Mass/volume] in Urine by Test strip Normal [facility] Vitamin D 25 Hydroxy Totalon 09-14-2024 Vitamin D 25 Hydroxy Total 72.6 ng/mL Normal 30-100 [facility] Comment on above: Result Comment: AMANDA MIN D STATUS 25(OH)VITAMIN D RANGE (ng/mL) Deficient <20 Insufficient 20 to <30 Sufficient 30 to 100 Reference: Jim GALVEZ,Van DAUGHERTY, Maude CUELLAR, et al. Evaluation,treatment, and prevention of vitamin D deficiency; an Endocrine Society clinical practice guideline. JCEM. 2010; 96(7):1911-30. PERFORMED BY: [facility] [address] [place] [address] PATHOLOGIST COMMERCIAL MANAGER CHESTER HANNON M.D. Performed By: #### U RDS, CG, UA #### [facility] [address] Vitamin D+Metabolites [Mass/ volume] in Serum or PlasmaOrdered By: Radha Akhtar on 09-14-2024 Vitamin D+Metabolites [Mass/Vol] Vitamin D+Metabolites [Mass/volume] in Serum or Plasma 30-100 [facility] Comment on above: VITAMIN D STATUS 25( [place])VITAMIN D RANGE (ng/mL) Deficient <20 Insufficient 20 to <30Sufficient 30 to 100Reference: Jim MF,Van DAUGHERTY, Maude CUELLAR, et al. Evaluation,treatment, and prevention of vitamin D deficiency; an Endocrine Society clinical practice guideline. JCEM. 2010; 96(7):1911-30. WBC Auto (Bld) [#/Vol]Ordere d By: Radha Akhtar on 09-14-2024 WBC (Bld) [#/Vol] Leukocytes [#/volume ] in Blood by Automated count 3.8-11.6 [facility] pH Test strip (U)Ordered By: Radha Akhtar on 09-14-2024 pH (U) pH of Urine by Test strip 5.0-9.0 [facility] Hemoglobin A1Con 08-14-2024 Glucose [Mass/Vol] 97 mg/dL Normal [facility] Comment on above: Result Comment: The ADA and AACC recommend providing the estimated average glucose result to permit better patient understanding of their HBA1c result. Performed By: #### L IPR #### [facility] [address] [facility] [place] [address] Internet Marketing Director: Antonio Tinsley DO HbA1c (Bld) [Mass fraction] 5.0 % Normal 4.0-6.0 [facility] Comment on above: Performed By: #### L IPR #### [facility] [address] [facility] [place] [address] Internet Marketing Director: Antonio Tinsley DO Lipid Profileon 08-14-2024 Cholesterol in LDL [Mass/Vol] 89 mg/dL Normal 0-100 [facility] Comment on above: Result Comment: LDL Guidelines: <100 Desirable 100-129 Near to/above Desirable 130-159 Borderline >159 Undesirable Direct (measured) LDL and calculated LDL are not interchangeable tests. Performed By: #### L IPR #### [facility] [address] [place] [address] Internet Marketing Director: Antonio Tinsley DO Cholesterol [Mass/Vol] 140 mg/dL Normal 0-199 [facility] Comment on above: Result Comment: Cholesterol Guidelines: <200 Desirable 200-240 Borderline >240 Undesirable Performed By: #### L IPR #### [facility] [address] [place] [address] Internet Marketing Director: Antonio Tinsley DO Cholesterol in HDL [Mass/Vol] 36 mg/dL Low >40 [facility] Comment on above: Result Comment: HDL Guidelines: <40 Undesirable 40-59 Borderline >59 Desirable Performed By: #### L IPR #### [facility] [place] [address] Internet Marketing Director: Antonio Tinsley DO Triglyceride [Mass/Vol] 77 mg/dL Normal 0-149 [facility] Comment on above: Result Comment: Triglyceride Guidelines: <150 Desirable 150-199 Borderline 200-499 High >499 Very high Based on AHA Guidelines for fasting triglyceride, August 2012. Performed By: #### L IPR #### [facility] [address] [place] [address] Internet Marketing Director: Antonio Tinsley DO TSH w/reflex to FT4on 2023 Thyroid Stim. Horm. 1.05 uIU/mL Normal 0.27-4.[address] [facility] Comment on above: Performed By: #### T SHX #### [facility] [address] [place] [address] Internet Marketing Director: Antonio Tinsley DO Acetaminophenon 08-12-2024 Acetaminophen [Mass/Vol] ug/mL Low 10-30 [facility] Comment on above: Performed By: #### C DP, ALCB, SALI, MG, ACET, CP #### [facility] [address] [place] [address] Internet Marketing Director: Antonio Tinsley DO #### GLYHGB #### [address] [address] Internet Marketing Director: Liban Faith MD CBC with Diffon 08-12-2024 Abs. Basophil 0.10 k/uL Normal 0.0-0.2 [facility] Comment on above: Performed By: #### C DP, ALCB, SALI, MG, ACET, CP #### [facility] [place] [address] Internet Marketing Director: Antonio Tinsley DO #### GLYHGB #### [address] [address] Internet Marketing Director: Liban Faith MD Abs.Neutrophil (Seg) 8.80 k/uL Normal 1.3-9.[address] [facility] Comment on above: Performed By: #### C DP, ALCB, SALI, MG, ACET, CP #### [facility] [place] [address] Internet Marketing Director: Antonio Tinsley DO #### GLYHGB #### [address] [address] Internet Marketing Director: Liban Faith MD Basophils/100 WBC (Bld) 1 % Normal 0-2 [facility] Comment on above: Performed By: #### C DP, ALCB, SALI, MG, ACET, CP #### [facility] [place] [address] Internet Marketing Director: Antonio Tinsley DO #### GLYHGB #### [address] [address] Internet Marketing Director: Liban Faith MD Eosinophils (Bld) [#/Vol] 0.10 10*3/uL Normal 0.0-0.4 [facility] Comment on above: Performed By: #### C DP, ALCB, SALI, MG, ACET, CP #### [facility] [address] [place] [address] Internet Marketing Director: Antonio Tinsley DO #### GLYHGB #### [address] [address] Internet Marketing Director: Liban Faith MD Eosinophils/100 WBC (Bld) 0 % Normal 0-4 [facility] Comment on above: Performed By: #### C DP, ALCB, SALI, MG, ACET, CP #### [facility] [address] [facility] [place] [address] Internet Marketing Director: Antonio Tinsley DO #### GLYHGB #### [address] [address] Internet Marketing Director: Liban Faith MD Erythrocyte distribution width (RBC) [Ratio] 14.2 % Normal 11.5-14.9 [facility] Comment on above: Performed By: #### C DP, ALCB, SALI, MG, ACET, CP #### [facility] [address] [place] [address] Internet Marketing Director: Antonio Tinsley DO #### GLYHGB #### [address] [address] Internet Marketing Director: Liban Faith MD Hematocrit (Bld) [Volume fraction] 48.2 % High 36-46 [facility] Comment on above: Performed By: #### C DP, ALCB, SALI, MG, ACET, CP #### [facility] [place] [address] Internet Marketing Director: Antonio Tinsley DO #### GLYHGB #### [address] [address] Internet Marketing Director: Liban Faith MD Hemoglobin (Bld) [Mass/Vol] 16.6 g/dL High 12.0-16.0 [facility] Comment on above: Performed By: #### C DP, ALCB, SALI, MG, ACET, CP #### [facility] [address] [place] [id number] Internet Marketing Director: Antonio Tinsley DO #### GLYHGB #### [address] [address] Internet Marketing Director: Liban Faith MD Lymphocytes (Bld) [#/Vol] 2.40 10*3/uL Normal 1.0-4.8 [facility] Comment on above: Performed By: #### C DP, ALCB, SALI, MG, ACET, CP #### [facility] [address] [place] [id number] Internet Marketing Director: Antonio Tinsley DO #### GLYHGB #### [address] [address] Internet Marketing Director: Liban Faith MD Lymphocytes/100 WBC (Bld) 19 % Low 24-44 [facility] Comment on above: Performed By: #### C DP, ALCB, SALI, MG, ACET, CP #### [facility] [address] [place] [address] Internet Marketing Director: Antonio Tinsley DO #### GLYHGB #### [address] [address] Internet Marketing Director: Liban Faith MD MCH (RBC) [Entitic mass] 31.9 pg Normal 26-34 [facility] Comment on above: Performed By: #### C DP, ALCB, SALI, MG, ACET, CP #### [facility] [address] [place] [address] Internet Marketing Director: Antonio Tinsley DO #### GLYHGB #### [address] [address] Internet Marketing Director: Liban Faith MD MCHC (RBC) [Mass/Vol] 34.4 g/dL Normal 31-37 [facility] Comment on above: Performed By: #### C DP, ALCB, SALI, MG, ACET, CP #### [facility] [address] [place] [address] Internet Marketing Director: Antonio Tinsley DO #### GLYHGB #### [address] [address] Internet Marketing Director: Liban Faith MD MCV (RBC) [Entitic vol] 92.7 fL Normal 80-100 [facility] Comment on above: Performed By: #### C DP, ALCB, SALI, MG, ACET, CP #### [facility] [address] [place] [address] Internet Marketing Director: Antonio Tinsley DO #### GLYHGB #### [address] [address] Internet Marketing Director: Liban Faith MD Monocytes (Bld) [#/Vol] 0.80 10*3/uL Normal 0.1-1.3 [facility] Comment on above: Performed By: #### C DP, ALCB, SALI, MG, ACET, CP #### [facility] [place] [address] Internet Marketing Director: Antonio Tinsley DO #### GLYHGB #### [address] [address] Internet Marketing Director: Liban Faith MD Monocytes/100 WBC (Bld) 7 % Normal 1-7 [facility] Comment on above: Performed By: #### C DP, ALCB, SALI, MG, ACET, CP #### [facility] [address] [place] [address] Internet Marketing Director: Antonio Tinsley DO #### GLYHGB #### [address] [address] Internet Marketing Director: Liban Faith MD Neutrophil (Seg) 73 % High 36-66 [facility] Comment on above: Performed By: #### C DP, ALCB, SALI, MG, ACET, CP #### [facility] [address] [place] [address] Internet Marketing Director: Antonio Tinsley DO #### GLYHGB #### [address] [address] Internet Marketing Director: Liban Faith MD Platelet mean volume (Bld) [Entitic vol] 7.2 fL Normal 6.0-12.0 [facility] Comment on above: Performed By: #### C DP, ALCB, SALI, MG, ACET, CP #### [facility] [address] [place] [address] Internet Marketing Director: Antonio Tinsley DO #### GLYHGB #### [address] [address] Internet Marketing Director: Liban Faith MD Platelets (Bld) [#/Vol] 379 10*3/uL Normal 150-450 [facility] Comment on above: Performed By: #### C DP, ALCB, SALI, MG, ACET, CP #### [facility] [address] [place] [address] Internet Marketing Director: Antonio Tinsley DO #### GLYHGB #### [address] [address] Internet Marketing Director: Liban Faith MD RBC (Bld) [#/Vol] 5.20 10*6/uL Normal 4.0-5.2 [facility] Comment on above: Performed By: #### C DP, ALCB, SALI, MG, ACET, CP #### [facility] [place] [address] Internet Marketing Director: Antonio Tinsley DO #### GLYHGB #### [address] [address] Internet Marketing Director: Liban Faith MD WBC (Bld) [#/Vol] 12.2 10*3/uL High 3.5-11.0 [facility] Comment on above: Performed By: #### C DP, ALCB, SALI, MG, ACET, CP #### [facility] [address] [place] [address] Internet Marketing Director: Antonio Tinsley DO #### GLYHGB #### [address] [address] Internet Marketing Director: Liban Faith MD Comp Metabolic Profon 2023 Albumin [Mass/Vol] 4.6 g/dL Normal 3.5-5.2 [facility] Comment on above: Performed By: #### C DP, ALCB, SALI, MG, ACET, CP #### [facility] [address] [place] [address] Internet Marketing Director: Antonio Tinsley DO #### GLYHGB #### [address] [address] Internet Marketing Director: Liban Faith MD Alkaline Phos 89 U/L Normal 35-104 [facility] Comment on above: Performed By: #### C DP, ALCB, SALI, MG, ACET, CP #### [facility] [address] [place] [address] Internet Marketing Director: Antonio Tinsley DO #### GLYHGB #### [address] [address] Internet Marketing Director: Liban Faith MD ALT [Catalytic activity/Vol] 17 U/L Normal 10-35 [facility] Comment on above: Performed By: #### C DP, ALCB, SALI, MG, ACET, CP #### [facility] [address] [place] [address] Internet Marketing Director: Antonio Tinsley DO #### GLYHGB #### [address] [address] Internet Marketing Director: Liban Faith MD Anion gap [Moles/Vol] 15 mmol/L Normal 9-16 [facility] Comment on above: Performed By: #### C DP, ALCB, SALI, MG, ACET, CP #### [facility] [address] [place] [address] Internet Marketing Director: Antonio Tinsley DO #### GLYHGB #### [address] [address] Internet Marketing Director: Liban Faith MD AST [Catalytic activity/Vol] 17 U/L Normal 10-35 [facility] Comment on above: Performed By: #### C DP, ALCB, SALI, MG, ACET, CP #### [facility] [address] [place] [address] Internet Marketing Director: Antonio Tinsley DO #### GLYHGB #### [address] [address] Internet Marketing Director: Liban Faith MD Bilirubin [Mass/Vol] 0.5 mg/dL Normal 0.0-1.[address] [facility] Comment on above: Performed By: #### C DP, ALCB, SALI, MG, ACET, CP #### [facility] [address] [place] [address] Internet Marketing Director: Antonio Tinsley DO #### GLYHGB #### [address] [address] Internet Marketing Director: Liban Faith MD Calcium [Mass/Vol] 10.1 mg/dL Normal 8.6-10.4 [facility] Comment on above: Performed By: #### C DP, ALCB, SALI, MG, ACET, CP #### [facility] [place] [address] Internet Marketing Director: Antonio Tinsley DO #### GLYHGB #### [address] [address] Internet Marketing Director: Liban Faith MD Chloride [Moles/Vol] 101 mmol/L Normal 98-[address] [facility] Comment on above: Performed By: #### C DP, ALCB, SALI, MG, ACET, CP #### [facility] [address] [place] [address] Internet Marketing Director: Antonio Tinsley DO #### GLYHGB #### [address] [address] Internet Marketing Director: Liban Faith MD CO2 [Moles/Vol] 23 mmol/L Normal 20-31 [facility] Comment on above: Performed By: #### C DP, ALCB, SALI, MG, ACET, CP #### [facility] [address] [place] [address] Internet Marketing Director: Antonio Tinsley DO #### GLYHGB #### [place] [address] [place] [address] Internet Marketing Director: Liban Faith MD Creatinine [Mass/Vol] 0.8 mg/dL Normal 0.7-1.2 [facility] Comment on above: Performed By: #### C DP, ALCB, SALI, MG, ACET, CP #### [facility] [address] [place] [address] Internet Marketing Director: Antonio Tinsley DO #### GLYHGB #### [address] [id number] Internet Marketing Director: Liban Faith MD GFR/1.73 sq M.predicted among non-blacks MDRD (S/P/Bld) [Vol rate/Area] mL/min/{1.73_m2} Normal >60 [facility] Comment on above: Result Comment: These results are not intended for use in patients <18 years of age. eGFR results are calculated without a race factor using the 2020 CKD-EPI equation. Careful clinical correlation is recommended, particularly when comparing to results calculated using previous equations. The CKD-EPI equation is less accurate in patients with extremes of muscle mass, extra-renal metabolism of creatine, excessive creatine ingestion, or following therapy that affects renal tubular secretion. Performed By: #### C DP, ALCB, SALI, MG, ACET, CP #### [facility] [address] [place] [address] Internet Marketing Director: Antonio Tinsley DO #### GLYHGB #### [place] [address] [place], [place] [id number] Internet Marketing Director: Liban Faith MD Glucose [Mass/Vol] 112 mg/dL High 74-99 [facility] Comment on above: Performed By: #### C DP, ALCB, SALI, MG, ACET, CP #### [facility] [address] [place] [address] Internet Marketing Director: Antonio Tinsley DO #### GLYHGB #### [address] [address] Internet Marketing Director: Liban Faith MD Potassium [Moles/Vol] 3.4 mmol/L Low 3.7-5.3 [facility] Comment on above: Performed By: #### C DP, ALCB, SALI, MG, ACET, CP #### [facility] [address] [place] [address] Internet Marketing Director: Antonio Tinsley DO #### GLYHGB #### [address] [address] Internet Marketing Director: Liban Faith MD Protein [Mass/Vol] 7.7 g/dL Normal 6.6-8.7 [facility] Comment on above: Performed By: #### C DP, ALCB, SALI, MG, ACET, CP #### [facility] [address] [place] [address] Internet Marketing Director: Antonio Tinsley DO #### GLYHGB #### [address] [address] Internet Marketing Director: Liban Faith MD Sodium [Moles/Vol] 139 mmol/L Normal 136-145 [facility] Comment on above: Performed By: #### C DP, ALCB, SALI, MG, ACET, CP #### [facility] [address] [place] [address] Internet Marketing Director: Antonio Tinsley DO #### GLYHGB #### [address] [address] Internet Marketing Director: Liban Faith MD Urea nitrogen [Mass/Vol] 3 mg/dL Low 6-20 [facility] Comment on above: Performed By: #### C DP, ALCB, SALI, MG, ACET, CP #### [facility] [place] [address] Internet Marketing Director: Antonio Tinsley DO #### GLYHGB #### [place] [address] [place] [address] Internet Marketing Director: Liban Faith MD Drug Scr, Abuse, Uron 2023 Amphetamine(s),Ur Negative Normal NEG [facility] Comment on above: Result Comment: Cuto ff: 1000 ng/mL Performed By: #### U A, AIXA, UMICAO #### [facility] [address] [place] [address] Internet Marketing Director: Antonio Tinsley DO Barbiturate(s),Ur Negative Normal NEG [facility] Comment on above: Result Comment: Cuto ff: 200 ng/ml Performed By: #### U A, AIXA, UMICAO #### [facility] [address] [place] [address] Internet Marketing Director: Antonio Tinsley DO Benzodiazepine(s) Negative Normal NEG [facility] Comment on above: Result Comment: Cuto ff: 200 ng/ml Performed By: #### U A, AIXA, UMICAO #### [facility] [address] [place] [address] Internet Marketing Director: Antonio Tinsley DO Cannabinoid(s),Ur Positive Abnormal NEG [facility] Comment on above: Result Comment: Cuto ff: 50 ng/ml Performed By: #### U A, AIXA, UMICAO #### [facility] [address] [place] [address] Internet Marketing Director: Antonio Tinsley DO Cocaine Metabolite Negative Normal NEG [facility] Comment on above: Result Comment: Cuto ff: 300 ng/ml Performed By: #### U A, AIXA, UMICAO #### [facility] [address] [facility] [place] [address] Internet Marketing Director: Antonio Tinsley DO Fentanyl, Urine Negative Normal NEG [facility] Comment on above: Result Comment: Cuto ff: 5 ng/ml Performed By: #### U A, AIXA, UMICAO #### [facility] [address] [place] [address]. [place] [address] Internet Marketing Director: Antonio Tinsley DO Methadone Ql (U) Negative Normal NEG [facility] Comment on above: Result Comment: Cuto ff: 300 ng/ml Performed By: #### U A, AIXA, UMICAO #### [facility] [address] [place] [address]. [place] [address] Internet Marketing Director: Antonio Tinsley DO Opiate(s), Ur Negative Normal NEG [facility] Comment on above: Result Comment: Cuto ff: 300 ng/ml Performed By: #### U A, AIXA, UMICAO #### [facility] [address] [place] [address]. [place] [address] Internet Marketing Director: Antonio Tinsley DO Oxycodone, Urine Negative Normal NEG [facility] Comment on above: Result Comment: Cuto ff: 100 ng/ml Performed By: #### U A, AIXA, UMICAO #### [facility] [address] [place] [address]. [place] [address] Internet Marketing Director: Antonio Tinsley DO Phencyclidine, Ur Negative Normal NEG [facility] Comment on above: Result Comment: Cuto ff: 25 ng/ml Performed By: #### U A, AIXA, UMICAO #### [facility] [address] [place] [address]. [place] [address] Internet Marketing Director: Antonio Tinsley DO Interpretive Info This method is a scr eening test to detect only these drug classes as part of a Normal [facility] Comment on above: Result Comment: medi abby workup. Confirmatory testing by another method should be ordered if clinically indicated. Performed By: #### U AIXA Geiger UMICAO #### [facility] [address] [place] [address] Internet Marketing Director: Antonio Tinsley DO Ethanol Alcoholon 08-12-2024 Ethanol [Mass/Vol] mg/dL Normal <10 [facility] Comment on above: Performed By: #### C DP, ALCB, SALI, MG, ACET, CP #### [facility] [address] [place] [address] Internet Marketing Director: Antonio Tinsley DO #### GLYHGB #### [address] [id number] Internet Marketing Director: Liban Faith MD Ethanol percent Can not be calculated Normal <0.010 [facility] Comment on above: Performed By: #### C DP, ALCB, SALI, MG, ACET, CP #### [facility] [place] [address] Internet Marketing Director: Antonio Tinsley DO #### GLYHGB #### [address] [address] Internet Marketing Director: Liban Faith MD HCG, Quanton 08-12-2024 HCG, Quant <0.2 Normal 0-7 [facility] Comment on above: Result Comment: Non-preg premeno <=5 Postmeno <=8 Male <=3 If HCG results do not concur with clinical observations, additional testing to confirm results is recommended. Performed By: #### B HCG #### [facility] [address] [place] [address] Internet Marketing Director: Antonio Tinsley DO Magnesiumon 08-12-2024 Magnesium [Mass/Vol] 2.0 mg/dL Normal 1.6-2.[address] [facility] Comment on above: Performed By: #### L IPR #### [facility] [address] [place] [address] Internet Marketing Director: Antonio Tinsley DO Salicylateon 9 Salicylate <0.5 Normal 0.0-10.0 [facility] Comment on above: Performed By: #### L IPR #### [facility] [address] [place] [address] Internet Marketing Director: Antonio Tinsley DO Urinalysis, Routineon 2023 Bilirubin, SemiQt,Ur Negative Normal NEG [facility] Comment on above: Performed By: #### U A, AIXA, UMICAO #### [facility] [address] [place] [address] Internet Marketing Director: Antonio Tinsley DO Blood, Urine MOD Abnormal NEG [facility] Comment on above: Performed By: #### U A, AIXA, UMICAO #### [facility] [address] [place] [address] Internet Marketing Director: Antonio Tinsley DO Clarity (U) Clear Normal CLEAR [facility] Comment on above: Performed By: #### U A, AIXA, UMICAO #### [facility] [address] [place] [address] Internet Marketing Director: Antonio Tinsley DO Color (U) Yellow Normal YEL [facility] Comment on above: Performed By: #### U A AIXA, UMICAO #### [facility] [address] [place] [address] Internet Marketing Director: Antonio Tinsley DO Glucose Ql (U) Negative Normal NEG [facility] Comment on above: Performed By: #### U A, AIXA, UMICAO #### [facility] [address] [facility] [place] [address] Internet Marketing Director: Antonio Tinsley DO Ketones Ql (U) TRACE Abnormal NEG [facility] Comment on above: Performed By: #### U A, AIXA, UMICAO #### [facility] [address] [facility] [place] [address] Internet Marketing Director: Antonio Tinsley DO Leukocyte esterase Test strip Ql (U) Negative Normal NEG [facility] Comment on above: Performed By: #### U A, AIXA, UMICAO #### [facility] [address] [place] [address]. [place] [address] Internet Marketing Director: Antonio Tinsley DO Nitrite,Ur Negative Normal NEG [facility] Comment on above: Performed By: #### Sigifredo A AIXA UMICACarol #### [facility] [address] [place] [address]. [place] [address] Internet Marketing Director: Antonio Tinsley DO PH,Ur 6.5 Normal 5.0-8.0 [facility] Comment on above: Performed By: #### U A, AIXA, UMICAO #### [facility] [address] [place] [address]. [place] [address] Internet Marketing Director: Antonio Tinsley DO Protein Ql (U) Negative Normal NEG [facility] Comment on above: Performed By: #### U A, AIXA, UMICAO #### [facility] [address] [place] [address]. [place] [address] Internet Marketing Director: Antonio Tinsley DO Spec. Eldon,Ur 1.003 Normal 1.000-1.030 [facility] Comment on above: Performed By: #### U A, AIXA, UMICAO #### [facility] [address] [place] [address]. [place] [address] Internet Marketing Director: Antonio Tinsley DO Urobilinogen,Ur Normal Normal 0.0-1.0 [facility] Comment on above: Performed By: #### AIXA Olivarez UMICAO #### [facility] [address] [facility] [place] [address] Internet Marketing Director: Antonio Tinsley DO Urinalysis,Microon 4 Bacteria FEW Abnormal NONE [facility] Comment on above: Performed By: #### AIXA Olivarez UMICAO #### [facility] [address] [facility] [place] [address] Internet Marketing Director: Antonio Tinsley DO Epithelial cells LM Ql (Urine sed) 3 to 5 Normal [facility] Comment on above: Performed By: #### AIXA Olivarez UMICAO #### [facility] [address] [facility] [place] [address] Internet Marketing Director: Antonio Tinsley DO Urine RBC's 3 to 5 Abnormal R02 [facility] Comment on above: Performed By: #### AIXA Olivarez UMICAO #### [facility] [address] [facility] [place] [address] Internet Marketing Director: Antonio Tinsley DO Urine WBC's 0 TO 2 Abnormal R05 [facility] Comment on above: Performed By: #### AIXA Olivarez UMICAO #### [facility] [address] [facility] [place] [address] Internet Marketing Director: Antonio Tinsley DO US venous duplex [facility] [place] [facility] US venous duplex [facility] Main [address] [address] Ultrasound Report Signed Patient: Harriet Patino MR#: [id number] 6 : 1985 Acct:[id number] Age/Sex: 39 / F ADM Date: 03/30/24 Loc: ER Room: Type: DEP ER Attending Dr: Ordering Provider: Misael Newell DO Date of Service: 03/31/24 US/US venous duplex LE LT: pain Copies to: Misael Newell DO LEFT LOWER EXTREMITY VENOUS DUPLEX INDICATION: Left leg pain. Unilateral left lower extremity venous duplex Doppler study was obtained utilizing B-mode, color- flow and spectral Doppler. FINDINGS: The left common femoral, femoral, and popliteal veins showed adequate compressibility, color-flow and augmentation. The left posterior tibial and peroneal veins were compressible, as well as proximal greater saphenous vein. The contralateral right common femoral vein was compressible with color-flow and augmentation. US/US venous duplex LE LT IMPRESSION: NO EVIDENCE OF DEEP VENOUS THROMBOSIS IN THE LEFT LOWER EXTREMITY. NO SUPERFICIAL THROMBOPHLEBITIS WAS NOTED. Impression dictated by: Mauri Wilson MD03/31/2024 4:50 PM Dictation Location: [place] [address] Tech: Cynthia Murcia Transcribed By: ABBY 03/31/24 1650 Dictated By: Mauri Wilson MD 03/31/24 1650 Signed By: 03/31/24 1650 Normal [facility] XR chest 1V portableon 03-31 XR chest 1V portable [facility] [place] [address] XRay Report Signed Patient: Harriet Patino MR#: [id number] 6 : 1985 Acct:[id number] Age/Sex: 39 / F ADM Date: 03/30/24 Loc: ER Room: Type: DEP ER Attending Dr: Copies to: Misael Newell DO Ordering Provider: Misael Newell DO Date of Service: 03/30/24 XR/XR chest 1V portable: Chest Pain XR chest 1V portable 03/30/2024 7:20 PM SIGNS AND SYMPTOMS: Left leg swelling and pain, chest pain PROTOCOL: Frontal radiograph of the chest COMPARISON: 11/15/2010 FINDINGS: The trachea is midline. The heart and mediastinal structures are within normal limits. The lung parenchyma is clear. The bony thorax is intact. Degenerative changes are noted in the thoracic spine. XR/XR chest 1V portable IMPRESSION: No acute cardiopulmonary pathology. Impression dictated by: Rony Ordonez M.D.03/31/2024 6:27 AM Dictation Location: [place] [address] Transcribed By: ABBY 03/31/246[address] Dictated By: Rony Ordonez II, MD 03/31/[address] Signed By: 03/31/[address] Normal [facility] Activated partial thrombopla stin time (aPTT) in platelet poor plasma by coagulation aOrdered By: Misael Newell on 03-30-2024 aPTT Coag (PPP) [Time] 34.0 s 25.1-36.5 [facility] Comment on above: A hematocrit value g reater than 55% may lead to inaccurate results in coagulation testing. Patients having hematocrit values >55% require a special collection tube for coagulation studies. Please contact the laboratory at [phone] for redraw instructions. Automated basophil %Ordered By: Misael Newell on 03-30-2024 Basophils/100 WBC (Bld) 0.8 % Normal . [facility] Comment on above: Performed By: #### V [id number], TSH3 wRFLX, LIPID #### [facility] [address] [place] [address] Automated basophil countOrde red By: Misael Newell on 03-30-2024 Basophils (Bld) [#/Vol] 0.1 10*3/uL Normal 0.0-0.2 [facility] Comment on above: Result Comment: PERF ORMED BY: [place] [address] PATHOLOGIST [employer]ERCIAL MANAGER CHESTER HANNON M.D. Performed By: #### V [id number], TSH3 wRFLX, LIPID #### [facility] [address] [place] [address] Automated blood monocyte cou ntOrdered By: Misael Newell on 03-30-2024 Monocytes (Bld) [#/Vol] 0.7 10*3/uL Normal 0.0-0.8 [facility] Comment on above: Performed By: #### V [id number], TSH3 wRFLX, LIPID #### [facility] [address] Automated eosinophil %Ordere d By: Misael Newell on 03-30-2024 Eosinophils/100 WBC (Bld) 1.5 % Normal . [facility] Comment on above: Performed By: #### V [id number], TSH3 wRFLX, LIPID #### [address] Automated eosinophil countOr dered By: Misael Newell on 03-30-2024 Eosinophils (Bld) [#/Vol] 0.2 10*3/uL Normal 0.0-0.45 [facility] Comment on above: Performed By: #### V [id number], TSH3 wRFLX, LIPID #### [address] Automated monocyte %Ordered By: Misael Newell on 03-30-2024 Monocytes/100 WBC (Bld) 6.2 % Normal . [facility] Comment on above: Performed By: #### V [id number], TSH3 wRFLX, LIPID #### [address] Automated neutrophil %Ordere d By: Misael Newell on 03-30-2024 Neutrophils/100 WBC (Bld) 72.3 % Normal . [facility] Comment on above: Performed By: #### V [id number], TSH3 wRFLX, LIPID #### [address] BNP ser/plasOrdered By: Misael Newell on 03-30-2024 Natriuretic peptide B (Bld) [Mass/Vol] 10.0 pg/mL Normal 5-100 [facility] Comment on above: Result Comment: PERF ORMED BY: [place] [address] PATHOLOGIST COMMERCIAL MANAGER CHESTER HANNON M.D. Performed By: #### V [id number], TSH3 wRFLX, LIPID #### [address] Basic Metabolic Panelon 03-05 Creatinine Clr Calc Pharmacy 91.88 Normal [facility] Comment on above: Performed By: #### V [id number], TSH3 wRFLX, LIPID #### [facility] [address] [place] [address] [place] GFR/1.73 sq M.predicted MDRD (S/P/Bld) [Vol rate/Area] mL/min/{1.73_m2} Normal [facility] Comment on above: Performed By: #### V [id number], TSH3 wRFLX, LIPID #### [address] Bilirubin Test strip Ql (U)O rdered By: Misael Newell on 03-30-2024 Bilirubin Ql (U) Negative Negative [facility] Calcium [Mass/volume] in Ser um or PlasmaOrdered By: Misael Newell on 03-30-2024 Calcium [Mass/Vol] 10.2 mg/dL Normal 8.6-10.3 [facility] Comment on above: Performed By: #### V [id number], TSH3 wRFLX, LIPID #### [facility] [address] [place] [address] Carbon dioxide, total [Moles /volume] in Serum or PlasmaOrdered By: Misael Newell on 03-30-2024 CO2 [Moles/Vol] 25.4 mmol/L Normal 21.0-31.0 [facility] Comment on above: Performed By: #### V [id number], TSH3 wRFLX, LIPID #### [facility] [address] [place] [address] [place] Chloride [Moles/volume] in S claudio or PlasmaOrdered By: Misael Newell on 03-30-2024 Chloride [Moles/Vol] 105 mmol/L Normal 98-107 [facility] Comment on above: Performed By: #### V [id number], TSH3 wRFLX, LIPID #### [facility] [address] [place] [address] Color of Urine by AutoOrdere d By: Misael Newell on 03-30-2024 Color (U) Yellow Normal Yellow [facility] Comment on above: Order Comment: Name Collection Type:: Clean-Voided Midstream Performed By: #### U RDS, UHCG, UA #### [address] Complete Blood Count Auto Di ffon 03-30-2024 Mean Corpuscular HGB Conc 34.2 g/dL Normal 32.0-35.0 [facility] [facility] Comment on above: Performed By: #### V [id number], TSH3 wRFLX, LIPID #### [place] [address] [place] Monocytes/100 WBC (Bld) 18.56 % Normal 0.00-20.00 [facility] Comment on above: Performed By: #### V [id number], TSH3 wRFLX, LIPID #### [address] NRBC% 0.0 /100{WBC} Normal 0-0.5 [facility] Comment on above: Performed By: #### V [id number], TSH3 wRFLX, LIPID #### [address] Creatine kinase [Enzymatic a ctivity/volume] in Serum or PlasmaOrdered By: Misael Newell on 03-30-2024 CK [Catalytic activity/Vol] 42 U/L Normal 30-223 [facility] Comment on above: Performed By: #### V [id number], TSH3 wRFLX, LIPID #### [place] [address] [place] Creatinine [Mass/volume] in Serum or PlasmaOrdered By: Misael Newell on 03-30-2024 Creatinine [Mass/Vol] 0.83 mg/dL Normal 0.60-1.20 [facility] Comment on above: Performed By: #### V [id number], TSH3 wRFLX, LIPID #### [place] [address] [place] D-Dimer High Sensitivityon 0 03-30-2024 D-Dimer High Sensitivity < 200 Normal 0-243 [facility] Comment on above: Result Comment: The reference range for D-dimer is <243 ng/mL D-dimer units. D-dimer results must be used in conjunction with a clinical pretest probability (PTP) assessment model for deep vein thrombosis (DVT) and pulmonary embolism (PE). Results <230 ng/mL d-dimer units can be used as a negative predictor in patients with low or moderate probability for DVT/PE. Results above the exclusion threshold of 230 ng/ml D-dimer units for DVT/PE may indicate the need for further diagnostic testing. D-Dimer can be increased in hospitalized patients due to co-morbid conditions. A hematocrit value greater than 55% may lead to inaccurate results in coagulation testing. Patients having hematocrit values >55% require a special collection tube for coagulation studies. Please contact the laboratory at [phone] for redraw instructions. PERFORMED BY: [place] [address] PATHOLOGIST COMMERCIAL MANAGER CHESTER HANNON M.D. Performed By: #### V [id number], TSH3 wRFLX, LIPID #### [address] ECG 12 lead ECGon 03-30-2024 ECG 12 lead ECG [facility] [address] [place] [address] Electrocardiograph Report Signed Patient: Harriet Patino MR#: [id number] 6 : 1985 Acct:[id number] Age/Sex: 39 / F ADM Date: 03/30/24 Loc: ER Room: Type: [facility] ER Attending Dr: Ordering Provider: Misael Newell DO Date of Service: 03/30/24 ECG/ECG 12 lead ECG: Chest Pain Copies to: Test Reason : Blood Pressure : 141/089 mmHG Vent. Rate : 093 BPM Atrial Rate : 093 BPM P-R Int : 124 ms QRS Dur : 076 ms QT Int : 330 ms P-R-T Axes : 077 080 043 degrees QTc Int : 410 ms Sinus rhythm with marked sinus arrhythmia Right atrial enlargement Borderline ECG When compared with ECG of 23-JAN-2024 17:44, No significant change was found Confirmed by MISAEL NEWELL DO ([id number]) on 03/31/2024 1:36:43 AM Referred By: Electronically Signed By:MISAEL NEWELL DO Transcribed By: MUS Signed By Misael Newell DO 03/31 0136 Normal [facility] Erythrocyte distribution wid th [Ratio] by Automated countOrdered By: Misael Newell on 03-30-2024 Erythrocyte distribution width (RBC) [Ratio] 13.5 % Normal 11.9-15.3 [facility] Comment on above: Performed By: #### V [id number], TSH3 wRFLX, LIPID #### [facility] [address] Erythrocytes [#/volume] in B lood by Automated countOrdered By: Misael Newell on 03-30-2024 RBC (Bld) [#/Vol] 5.12 10*6/uL High 3.60-5.00 [facility] Comment on above: Performed By: #### V [id number], TSH3 wRFLX, LIPID #### [facility] [address] Fibrin D-dimer [Presence] in Platelet poor plasma by Latex agglutinationOrdered By: Misael Newell on 03-30-2024 Fibrin D-dimer LA Ql (PPP) < 200 ng/mL 0-243 [facility] Comment on above: The reference range for D-dimer is <243 ng/mL D-dimer units.D-dimer results must be used in conjunction with a clinicalpretest probability (PTP) assessment model for deep veinthrombosis (DVT) and pulmonary embolism (PE). Results <230ng/mL d-dimer units can be used as a negative predictor inpatients with low or moderate probability for DVT/PE.Results above the exclusion threshold of 230 ng/ml D-dimerunits for DVT/PE may indicate the need for furtherdiagnostic testing.D-Dimer can be increased in hospitalized patients due toco-morbid conditions.A hematocrit value greater than 55% may lead to inaccurate results in coagulation testing. Patients having hematocrit values >55% require a special collection tube for coagulation studies. Please contact the laboratory at [phone] for redraw instructions. Glucose [Mass/volume] in Ser um or PlasmaOrdered By: Misael Newell on 03-30-2024 Glucose [Mass/Vol] 93 mg/dL Normal 70-100 [facility] Comment on above: ADA recommended refe rence rangeRandom Glucose Reference Range is dependent on time and content of last meal. Glucose of more than 200 mg/dL in a nonstressed, ambulatory subject supports the diagnosis of Diabetes Mellitus. Result Comment: [place] om Glucose Reference Range is dependent on time and content of last meal. Glucose of more than 200 mg/dL in a nonstressed, ambulatory subject supports the diagnosis of Diabetes Mellitus. ADA recommended reference range Performed By: #### V [id number], TSH3 wRFLX, LIPID #### [facility] [address] HCG ( test) IA.rapi d Ql (U)Ordered By: Misael Newell on 03-30-2024 HCG ( test) Ql (U) Negative [facility] HCG,Urineon 03-30-2024 Beta HCG ( test) Ql (U) Negative Normal [facility] Comment on above: Order Comment: Name Collection Type:: Clean-Voided Midstream Result Comment: PERF ORMED BY: [place] [address] PATHOLOGIST COMMERCIAL MANAGER CHESTER HANNON M.D. Performed By: #### U RDS, CG, UA #### [address] Hematocrit [Volume Fraction] of Blood by Automated countOrdered By: Misael Newell on 03-30-2024 Hematocrit (Bld) [Volume fraction] 46.3 % Normal 34.0-46.4 [facility] Comment on above: Performed By: #### V [id number], TSH3 wRFLX, LIPID #### [place] [address] [place] Hemoglobin [Mass/volume] in BloodOrdered By: Misael Newell on 03-30-2024 Hemoglobin (Bld) [Mass/Vol] 15.8 g/dL High 11.8-15.4 [facility] Comment on above: Performed By: #### V [id number], TSH3 wRFLX, LIPID #### [facility] [address] [place], [place] [id number] [place] INR in Platelet poor plasma by Coagulation assayOrdered By: Misael Newell on 03-30-2024 INR Coag (PPP) [Relative time] 1.1 {INR} Normal [facility] Comment on above: INR Therapeutic Rang e A) Pre- and Peroperative OAT started two weeks before surgery. NOT HIP SURGERY: 1.5 - 2.5 HIP SURGERY: 2 - 3B) Primary and secondary prevention of venous THROMBOSIS: 2 - 3C) Active venous thrombosis, pulmonary embolismand prevention of recurrent venous thrombosis: 2 - 3D) Prevention of arterial thromboembolismincluding patients with mechanical heart valves: 3 - 4.5 Result Comment: INR Therapeutic Range A) Pre- and Peroperative OAT started two weeks before surgery. NOT HIP SURGERY: 1.5 - 2.5 HIP SURGERY: 2 - 3 B) Primary and secondary prevention of venous THROMBOSIS: 2 - 3 C) Active venous thrombosis, pulmonary embolism and prevention of recurrent venous thrombosis: 2 - 3 D) Prevention of arterial thromboembolism including patients with mechanical heart valves: 3 - 4.5 Performed By: #### V [id number], TSH3 wRFLX, LIPID #### [facility] [address] Ketones Auto test strip (U) [Mass/Vol]Ordered By: Misael Newell on 03-30-2024 Ketones (U) [Mass/Vol] Negative Negative [facility] Leukocytes [#/volume] correc yamila for nucleated erythrocytes in Blood by Automated counOrdered By: Misael Newell on 03-30-2024 WBC corrected for nucl RBC Auto (Bld) [#/Vol] 10.9 10*3/uL 3.8-11.6 [facility] Leukocytes [#/volume] in Blo od by Automated countOrdered By: Misael Newell on 03-30-2024 WBC (Bld) [#/Vol] 10.9 10*3/uL Normal 3.8-11.6 [facility] Comment on above: Performed By: #### V [id number], TSH3 wRFLX, LIPID #### [facility] [address] [place] [id number] [place] Lipase [Enzymatic activity/v olume] in Serum or PlasmaOrdered By: Misael Newell on 03-30-2024 Lipase [Catalytic activity/Vol] 15.0 U/L Normal 11.0-82.0 [facility] Comment on above: Result Comment: PERF ORMED BY: [place] [address] PATHOLOGIST COMMERCIAL MANAGER CHESTER HANNON M.D. Performed By: #### V [id number], TSH3 wRFLX, LIPID #### [facility] [address] [place] [address] Lymphocytes [#/volume] in Bl ood by Automated countOrdered By: Misael Newell on 03-30-2024 Lymphocytes (Bld) [#/Vol] 2.1 10*3/uL Normal 1.00-4.8 [facility] Comment on above: Performed By: #### V [id number], TSH3 wRFLX, LIPID #### [facility] [address] [place] [address] Lymphocytes/100 leukocytes i n Blood by Automated countOrdered By: Misael Newell on 03-30-2024 Lymphocytes/100 WBC (Bld) 19.2 % Normal . [facility] Comment on above: Performed By: #### V [id number], TSH3 wRFLX, LIPID #### [facility] [address] [place] [address] MCH [Entitic mass] by Automa yamila countOrdered By: Misael Newell on 03-30-2024 MCH (RBC) [Entitic mass] 30.9 pg Normal 24.7-34.3 [facility] Comment on above: Performed By: #### V [id number], TSH3 wRFLX, LIPID #### [facility] [address] [place] [address] MCHC Auto (RBC) [Mass/Vol]Or dered By: Misael Newell on 03-30-2024 MCHC (RBC) [Mass/Vol] 34.2 g/dL 32.0-35.0 [facility] MCV [Entitic volume] by Auto mated countOrdered By: Misael Newell on 03-30-2024 MCV (RBC) [Entitic vol] 90.3 fL Normal 80-100 [facility] Comment on above: Performed By: #### V [id number], TSH3 wRFLX, LIPID #### [facility] [address] [place] [address] [place] Monocyte distribution width [Entitic volume] in Blood by AutomatedOrdered By: Misael Newell on 03-30-2024 Monocyte distribution width Auto (Bld) [Entitic vol] 18.56 % 0.00-20.00 [facility] Neutrophils [#/volume] in Bl ood by Automated countOrdered By: Misael Newell on 03-30-2024 Neutrophils (Bld) [#/Vol] 7.9 10*3/uL High 1.8-7.7 [facility] Comment on above: Performed By: #### V [id number], TSH3 wRFLX, LIPID #### [facility] [address] Nitrite Test strip Ql (U)Ord ered By: Misael Newell on 03-30-2024 Nitrite Ql (U) Negative Negative [facility] No Panel InformationOrdered By: Misael Newell on 03-30-2024 Estimated GFR (CKD-EPI) > 60.0 mL/Min [facility] Creatinine Clearance (Chem 91.88 [facility] Nucleated erythrocytes [Pres ence] in Blood by Automated countOrdered By: Misael Newell on 03-30-2024 Nucleated RBC Auto Ql (Bld) 0.0 /100{WBC} 0-0.5 [facility] Partial Thromboplastin Timeo n 03-30-2024 aPTT Coag (Bld) [Time] 34.0 s Normal 25.1-36.5 [facility] Comment on above: Result Comment: A he matocrit value greater than 55% may lead to inaccurate results in coagulation testing. Patients having hematocrit values >55% require a special collection tube for coagulation studies. Please contact the laboratory at [phone] for redraw instructions. Performed By: #### V [id number], TSH3 wRFLX, LIPID #### [facility] [address] [place] [address] [place] Platelet mean volume [Entiti c volume] in Blood by Automated countOrdered By: Misael Newell on 03-30-2024 Platelet mean volume (Bld) [Entitic vol] 7.7 fL Normal 6.3-10.7 [facility] Comment on above: Performed By: #### V [id number], TSH3 wRFLX, LIPID #### [facility] [address] [place] [address] [place] Platelets [#/volume] in Bloo d by Automated countOrdered By: Misael Newell on 03-30-2024 Platelets (Bld) [#/Vol] 379 10*3/uL Normal 150-450 [facility] Comment on above: Performed By: #### V [id number], TSH3 wRFLX, LIPID #### [facility] [address] [place] [address] [place] Potassium [Moles/volume] in Serum or PlasmaOrdered By: Misael Reece on 03-30-2024 Potassium [Moles/Vol] 3.8 mmol/L Normal 3.5-5.1 [facility] Comment on above: Performed By: #### V [id number], TSH3 wRFLX, LIPID #### [address] Protein Auto test strip (U) [Mass/Vol]Ordered By: Misael Newell on 03-30-2024 Protein (U) [Mass/Vol] Negative Negative [facility] Prothrombin time (PT)Ordered By: Misaelandrey Newell on 03-30-2024 PT Coag (PPP) [Time] 12.7 s Normal 9.0-12.9 [facility] Comment on above: A hematocrit value g reater than 55% may lead to inaccurate results in coagulation testing. Patients having hematocrit values >55% require a special collection tube for coagulation studies. Please contact the laboratory at [phone] for redraw instructions. Result Comment: A he matocrit value greater than 55% may lead to inaccurate results in coagulation testing. Patients having hematocrit values >55% require a special collection tube for coagulation studies. Please contact the laboratory at [phone] for redraw instructions. Performed By: #### V [id number], TSH3 wRFLX, LIPID #### [facility] [address] [place] [address] Serum or plasma anion gap de terminationOrdered By: Misael Newell on 03-30-2024 Anion gap [Moles/Vol] 13.4 mmol/L Normal 6.0-15.0 [facility] Comment on above: Performed By: #### V [id number], TSH3 wRFLX, LIPID #### [facility] [address] [place] [address] Sodium [Moles/volume] in Ser um or PlasmaOrdered By: Misael Newell on 03-30-2024 Sodium [Moles/Vol] 140 mmol/L Normal 136-145 [facility] Comment on above: Performed By: #### V [id number], TSH3 wRFLX, LIPID #### [address] Specific gravity Auto test s trip (U) [Rel density]Ordered By: Misael Newell on 03-30-2024 Specific gravity (U) [Rel density] 1.002 1.001-1.030 [facility] Troponin I High Sensitivityo n 03-30-2024 Troponin I High Sensitivity 2.8 pg/mL Normal 0.0-15.0 [facility] Comment on above: Result Comment: PERF ORMED BY: [place] [address] PATHOLOGIST COMMERCIAL MANAGER CHESTER HANNON M.D. Performed By: #### V [id number], TSH3 wRFLX, LIPID #### [facility] [address] [place] [address] Troponin I.cardiac [Mass/vol ume] in Serum or Plasma by Detection limit <= 0.01 ng/Ordered By: Misael Newell on 03-30-2024 Troponin I.cardiac DL <= 0.01 ng/mL [Mass/Vol] 2.8 pg/mL 0.0-15.0 [facility] Urea nitrogen [Mass/volume] in Serum or PlasmaOrdered By: Misael Newell on 03-30-2024 Urea nitrogen [Mass/Vol] 11 mg/dL Normal 7-25 [facility] Comment on above: Performed By: #### V [id number], TSH3 wRFLX, LIPID #### [facility] [address] Urinalysison 03-30-2024 Appearance (U) Clear Normal Clear [facility] Comment on above: Order Comment: Name Collection Type:: Clean-Voided Midstream Performed By: #### U RDS, UHCG, UA #### [facility] [address] Bilirubin,Urine Negative Normal Negative [facility] Comment on above: Order Comment: Name Collection Type:: Clean-Voided Midstream Performed By: #### U RDS, UHCG, UA #### [facility] [address] Glucose Ql (U) Normal Normal Normal [facility] Comment on above: Order Comment: Name Collection Type:: Clean-Voided Midstream Performed By: #### U RDS, UHCG, UA #### [address] Ketones Ql (U) Negative Normal Negative [facility] Comment on above: Order Comment: Name Collection Type:: Clean-Voided Midstream Performed By: #### U RDS, UHCG, UA #### [address] Leukocyte esterase Test strip Ql (U) Negative Normal Negative [facility] Comment on above: Order Comment: Name Collection Type:: Clean-Voided Midstream Performed By: #### U RDS, UHCG, UA #### [place] [address] [place] Nitrite,Urine Negative Normal Negative [facility] Comment on above: Order Comment: Name Collection Type:: Clean-Voided Midstream Performed By: #### U RDS, UHCG, UA #### [place] [address] [place] Occult Blood,Urine Negative Normal Negative [facility] Comment on above: Order Comment: Name Collection Type:: Clean-Voided Midstream Performed By: #### U RDS, UHCG, UA #### [facility] [address] Protein,Urine Negative Normal Negative [facility] Comment on above: Order Comment: Name Collection Type:: Clean-Voided Midstream Performed By: #### U RDS, UHCG, UA #### [facility] [address] Specificy [place],Urine 1.002 Normal 1.001-1.030 [facility] Comment on above: Order Comment: Name Collection Type:: Clean-Voided Midstream Performed By: #### U RDS, UHCG, UA #### [facility] [address] Urobilinogen,Urine Normal Normal Normal [facility] Comment on above: Order Comment: Name Collection Type:: Clean-Voided Midstream Performed By: #### U RDS, UHCG, UA #### [facility] [address] [place] [address] Urine clarity by refractomet ry automatedOrdered By: Misael Newell on 03-30-2024 Clarity Refractometry automated (U) Clear Clear [facility] Urine glucose measurement by automated test strip (mass/volume)Ordered By: Misael Newell on 03-30-2024 Glucose Auto test strip (U) [Mass/Vol] Normal mg/dL Normal [facility] Urine hemoglobin detection b y automated test stripOrdered By: Misael Newell on 03-30-2024 Hemoglobin Auto test strip Ql (U) Negative Negative [facility] Urine leukocyte esterase det ection by automated test stripOrdered By: Misael Newell on 03-30-2024 Leukocyte esterase Auto test strip Ql (U) Negative Negative [facility] Urine pH measurement by auto mated test stripOrdered By: Misael Newell on 03-30-2024 pH (U) 6.5 [pH] Normal 5.0-9.0 [facility] Comment on above: Order Comment: Name Collection Type:: Clean-Voided Midstream Performed By: #### U RDS, UHCG, UA #### [facility] [address] [place] [address] Urobilinogen Auto test strip (U) [Mass/Vol]Ordered By: Misael Newell on 03-30-2024 Urobilinogen (U) [Mass/Vol] Normal mg/dL Normal [facility] Alanine aminotransferase [En zymatic activity/volume] in Serum or PlasmaOrdered By: Luis E Brewster on 01-28-2024 ALT [Catalytic activity/Vol] 13 U/L Normal 7-52 [facility] Comment on above: Performed By: #### V [id number], TSH3 wRFLX, LIPID #### [facility] [address] [place] [address] [place] Albumin [Mass/volume] in Ser um or Plasma by Bromocresol green (BCG) dye binding methoOrdered By: Luis E Brewster on 01-28-2024 Albumin BCG dye [Mass/Vol] 4.2 g/dL 3.5-5.7 [facility] Alkaline phosphatase [Enzyma tic activity/volume] in Serum or PlasmaOrdered By: Luis E Brewster on 01-28-2024 ALP [Catalytic activity/Vol] 64 U/L Normal 34-104 [facility] Comment on above: Performed By: #### V [id number], TSH3 wRFLX, LIPID #### [facility] [address] [place] [address] [place] Aspartate aminotransferase [ Enzymatic activity/volume] in Serum or PlasmaOrdered By: Luis E Brewster on 01-28-2024 AST [Catalytic activity/Vol] 11 U/L Low 13-39 [facility] Comment on above: Performed By: #### V [id number], TSH3 wRFLX, LIPID #### [facility] [address] [place] [address] [place] Automated basophil %Ordered By: Luis E Brewster on 01-28-2024 Basophils/100 WBC (Bld) 1.2 % Normal . [facility] Comment on above: Performed By: #### V [id number], TSH3 wRFLX, LIPID #### [facility] [address] [place] [address] Automated basophil countOrde red By: Luis E Brewster on 01-28-2024 Basophils (Bld) [#/Vol] 0.1 10*3/uL Normal 0.0-0.2 [facility] Comment on above: Result Comment: PERF ORMED BY: [place] [address] PATHOLOGIST COMMERCIAL MANAGER CHESTER HANNON M.D. Performed By: #### V [id number], TSH3 wRFLX, LIPID #### [address] Automated blood monocyte cou ntOrdered By: Luis E Brewster on 01-28-2024 Monocytes (Bld) [#/Vol] 0.5 10*3/uL Normal 0.0-0.8 [facility] Comment on above: Performed By: #### V [id number], TSH3 wRFLX, LIPID #### [address] Automated eosinophil %Ordere d By: Luis E Brewster on 01-28-2024 Eosinophils/100 WBC (Bld) 4.4 % Normal . [facility] Comment on above: Performed By: #### V [id number], TSH3 wRFLX, LIPID #### [address] Automated eosinophil countOr dered By: Luis E Brewster on 01-28-2024 Eosinophils (Bld) [#/Vol] 0.3 10*3/uL Normal 0.0-0.45 [facility] Comment on above: Performed By: #### V [id number], TSH3 wRFLX, LIPID #### [facility] [address] [place] [address] Automated erythrocytes count in urine sediment (number/area)Ordered By: Luis E Brewster on 01-28-2024 RBC Auto (Urine sed) [#/Area] 3-4 [HPF] 0-4 [facility] Automated leukocytes count i n urine sediment (number/area)Ordered By: Luis E Brewster on 01-28-2024 WBC Auto (Urine sed) [#/Area] 1-2 [HPF] 0-4 [facility] Automated monocyte %Ordered By: Luis E Brewster on 01-28-2024 Monocytes/100 WBC (Bld) 6.7 % Normal . [facility] Comment on above: Performed By: #### V [id number], TSH3 wRFLX, LIPID #### [facility] [address] [place] [address] Automated neutrophil %Ordere d By: Luis E Brewster on 01-28-2024 Neutrophils/100 WBC (Bld) 52.9 % Normal . [facility] Comment on above: Performed By: #### V [id number], TSH3 wRFLX, LIPID #### [facility] [address] [place] [address] Automated urine color determ inationOrdered By: Luis E Brewster on 01-28-2024 Color (U) Yellow Normal Yellow [facility] Comment on above: Order Comment: Name Collection Type:: Voided Performed By: #### U HCG, ADDONUAPLUS #### [address] Bilirubin Test strip Ql (U)O rdered By: Luis E Brewster on 01-28-2024 Bilirubin Ql (U) Negative Negative [facility] Bilirubin.total [Mass/volume ] in Serum or PlasmaOrdered By: Luis E Brewster on 01-28-2024 Bilirubin [Mass/Vol] 0.3 mg/dL Normal 0.3-1.0 [facility] Comment on above: Performed By: #### V [id number], TSH3 wRFLX, LIPID #### [address] Calcium [Mass/volume] in Ser um or PlasmaOrdered By: Luis E Brewster on 01-28-2024 Calcium [Mass/Vol] 9.1 mg/dL Normal 8.6-10.3 [facility] Comment on above: Performed By: #### V [id number], TSH3 wRFLX, LIPID #### [facility] [address] [place] [address] [place] Carbon dioxide, total [Moles /volume] in Serum or PlasmaOrdered By: Luis E Brewster on 01-28-2024 CO2 [Moles/Vol] 29.6 mmol/L Normal 21.0-31.0 [facility] Comment on above: Performed By: #### V [id number], TSH3 wRFLX, LIPID #### [facility] [address] Chloride [Moles/volume] in S claudio or PlasmaOrdered By: Luis E Brewster on 01-28-2024 Chloride [Moles/Vol] 106 mmol/L Normal 98-107 [facility] [facility] Comment on above: Performed By: #### V [id number], TSH3 wRFLX, LIPID #### [address] Complete Blood Count Auto Di ffon 01-28-2024 Mean Corpuscular HGB Conc 33.6 g/dL Normal 32.0-35.0 [facility] Comment on above: Performed By: #### V [id number], TSH3 wRFLX, LIPID #### [address] Monocytes/100 WBC (Bld) 15.79 % Normal 0.00-20.00 [facility] Comment on above: Performed By: #### V [id number], TSH3 wRFLX, LIPID #### [address] NRBC% 0.1 /100{WBC} Normal 0-0.5 [facility] Comment on above: Performed By: #### V [id number], TSH3 wRFLX, LIPID #### [address] Comprehensive Metabolic Pane frederic 01-28-2024 Albumin [Mass/Vol] 4.2 g/dL Normal 3.5-5.7 [facility] Comment on above: Performed By: #### V [id number], TSH3 wRFLX, LIPID #### [address] Creatinine Clr Calc Pharmacy 95.71 Normal [facility] Comment on above: Performed By: #### V [id number], TSH3 wRFLX, LIPID #### [place] [address] [place] GFR/1.73 sq M.predicted MDRD (S/P/Bld) [Vol rate/Area] mL/min/{1.73_m2} Normal [facility] Comment on above: Performed By: #### V [id number], TSH3 wRFLX, LIPID #### [facility] [address] [place] [address] [place] Creatinine [Mass/volume] in Serum or PlasmaOrdered By: Luis E Brewster on 01-28-2024 Creatinine [Mass/Vol] 0.83 mg/dL Normal 0.60-1.20 [facility] Comment on above: Performed By: #### V [id number], TSH3 wRFLX, LIPID #### [facility] [address] [place] [id number] [place] Dipstick and Microscopicon 0 01-28-2024 Appearance (U) Cloudy Critically abnormal Clear [facility] Comment on above: Order Comment: Name Collection Type:: Voided Performed By: #### U HCG, ADDONUAPLUS #### [facility] [address] [place] [address] [place] Bacteria,Urine 1+ High None Seen [facility] Comment on above: Order Comment: Name Collection Type:: Voided Performed By: #### U HCG, ADDONUAPLUS #### [facility] [address] [place] [address] [place] Bilirubin,Urine Negative Normal Negative [facility] Comment on above: Order Comment: Name Collection Type:: Voided Performed By: #### U HCG, ADDONUAPLUS #### [facility] [address] [place] [address] [place] Glucose Ql (U) Normal Normal Normal [facility] Comment on above: Order Comment: Name Collection Type:: Voided Performed By: #### U HCG, ADDONUAPLUS #### [facility] [address] [place] [id number] [place] Hyaline Casts,Urine 0-8 Normal 0-8 [facility] Comment on above: Order Comment: Name Collection Type:: Voided Performed By: #### U HCG, ADDONUAPLUS #### [facility] [address] [place], [place] [id number] [place] Ketones Ql (U) Negative Normal Negative [facility] Comment on above: Order Comment: Name Collection Type:: Voided Performed By: #### U HCG, ADDONUAPLUS #### [facility] [address] Leukocyte esterase Test strip Ql (U) Negative Normal Negative [facility] Comment on above: Order Comment: Name Collection Type:: Voided Performed By: #### U HCG, ADDONUAPLUS #### [facility] [address] [place] [address] [place] Nitrite,Urine Negative Normal Negative [facility] Comment on above: Order Comment: Name Collection Type:: Voided Performed By: #### U HCG, ADDONUAPLUS #### [facility] [address] [place] [address] [place] Occult Blood,Urine Negative Normal Negative [facility] Comment on above: Order Comment: Name Collection Type:: Voided Performed By: #### U HCG, ADDONUAPLUS #### [place] [address] [place] Protein,Urine Negative Normal Negative [facility] Comment on above: Order Comment: Name Collection Type:: Voided Performed By: #### U HCG, ADDONUAPLUS #### [place] [address] [place] RBC,Urine 3-4 Normal 0-4 [facility] Comment on above: Order Comment: Name Collection Type:: Voided Performed By: #### U HCG, ADDONUAPLUS #### [place] [address] [place] Specificy [place],Urine 1.016 Normal 1.001-1.030 [facility] Comment on above: Order Comment: Name Collection Type:: Voided Performed By: #### U HCG, ADDONUAPLUS #### [facility] [address] [place] [address] [place] Squamous Epithelial Cell,Urine 3-4 High 0-2 [facility] Comment on above: Order Comment: Name Collection Type:: Voided Performed By: #### U HCG, ADDONUAPLUS #### [facility] [address] [place] [address] [place] Urobilinogen,Urine Normal Normal Normal [facility] Comment on above: Order Comment: Name Collection Type:: Voided Performed By: #### U HCG, ADDONUAPLUS #### [address] WBC,Urine 1-2 Normal 0-4 [facility] Comment on above: Order Comment: Name Collection Type:: Voided Performed By: #### U HCG, ADDONUAPLUS #### [address] Erythrocyte distribution wid th [Ratio] by Automated countOrdered By: Luis E Brewster on 01-28-2024 Erythrocyte distribution width (RBC) [Ratio] 13.6 % Normal 11.9-15.3 [facility] Comment on above: Performed By: #### V [id number], TSH3 wRFLX, LIPID #### [address] Erythrocytes [#/volume] in B lood by Automated countOrdered By: Luis E Brewster on 01-28-2024 RBC (Bld) [#/Vol] 4.61 10*6/uL Normal 3.60-5.00 [facility] Comment on above: Performed By: #### V [id number], TSH3 wRFLX, LIPID #### [address] Glucose [Mass/volume] in Ser um or PlasmaOrdered By: Luis E Brewster on 01-28-2024 Glucose [Mass/Vol] 92 mg/dL Normal 70-100 [facility] Comment on above: ADA recommended refe rence rangeRandom Glucose Reference Range is dependent on time and content of last meal. Glucose of more than 200 mg/dL in a nonstressed, ambulatory subject supports the diagnosis of Diabetes Mellitus. Result Comment: [place] om Glucose Reference Range is dependent on time and content of last meal. Glucose of more than 200 mg/dL in a nonstressed, ambulatory subject supports the diagnosis of Diabetes Mellitus. ADA recommended reference range Performed By: #### V [id number], TSH3 wRFLX, LIPID #### [place] [address] [place] HCG ( test) IA.rapi d Ql (U)Ordered By: Luis E Brewster on 01-28-2024 HCG ( test) Ql (U) Negative [facility] HCG,Urineon 01-28-2024 Beta HCG ( test) Ql (U) Negative Normal [facility] Comment on above: Order Comment: Name Collection Type:: Voided Result Comment: PERF ORMED BY: [place] [address] PATHOLOGIST [employer]ERCIAL MANAGER CHESTER HANNON M.D. Performed By: #### U HCG, ADDONUAPLUS #### [facility] [address] [place] [address] Hematocrit [Volume Fraction] of Blood by Automated countOrdered By: Luis E Brewster on 01-28-2024 Hematocrit (Bld) [Volume fraction] 41.0 % Normal 34.0-46.4 [facility] Comment on above: Performed By: #### V [id number], TSH3 wRFLX, LIPID #### [address] Hemoglobin [Mass/volume] in BloodOrdered By: Luis E Brewster on 01-28-2024 Hemoglobin (Bld) [Mass/Vol] 13.8 g/dL Normal 11.8-15.4 [facility] Comment on above: Performed By: #### V [id number], TSH3 wRFLX, LIPID #### [facility] [address] [place] [address] Ketones Auto test strip (U) [Mass/Vol]Ordered By: Luis E Brewster on 01-28-2024 Ketones (U) [Mass/Vol] Negative Negative [facility] - UrinalysisOrder ed By: Luis E Brewster on 01-28-2024 Hyaline casts LM Ql (Urine sed) 0-8 [LPF] 0-8 [facility] Leukocytes [#/volume] correc yamila for nucleated erythrocytes in Blood by Automated counOrdered By: Luis E Brewster on 01-28-2024 WBC corrected for nucl RBC Auto (Bld) [#/Vol] 7.1 10*3/uL 3.8-11.6 [facility] Leukocytes [#/volume] in Blo od by Automated countOrdered By: Luis E Brewster on 01-28-2024 WBC (Bld) [#/Vol] 7.1 10*3/uL Normal 3.8-11.6 [facility] Comment on above: Performed By: #### V [id number], TSH3 wRFLX, LIPID #### [facility] [address] Lymphocytes [#/volume] in Bl ood by Automated countOrdered By: Luis E Brewster on 01-28-2024 Lymphocytes (Bld) [#/Vol] 2.5 10*3/uL Normal 1.00-4.8 [facility] Comment on above: Performed By: #### V [id number], TSH3 wRFLX, LIPID #### [facility] [address] [place] [address] Lymphocytes/100 leukocytes i n Blood by Automated countOrdered By: Luis E Brewster on 01-28-2024 Lymphocytes/100 WBC (Bld) 34.8 % Normal . [facility] Comment on above: Performed By: #### V [id number], TSH3 wRFLX, LIPID #### [facility] [address] [place] [address] MCH [Entitic mass] by Automa yamila countOrdered By: Luis E Brewster on 01-28-2024 MCH (RBC) [Entitic mass] 29.9 pg Normal 24.7-34.3 [facility] Comment on above: Performed By: #### V [id number], TSH3 wRFLX, LIPID #### [facility] [address] [place] [address] MCHC Auto (RBC) [Mass/Vol]Or dered By: Luis E Brewster on 01-28-2024 MCHC (RBC) [Mass/Vol] 33.6 g/dL 32.0-35.0 [facility] MCV [Entitic volume] by Auto mated countOrdered By: Luis E Brewster on 01-28-2024 MCV (RBC) [Entitic vol] 88.9 fL Normal 80-100 [facility] Comment on above: Performed By: #### V [id number], TSH3 wRFLX, LIPID #### [facility] [address] Magnesium [Mass/volume] in S claudio or PlasmaOrdered By: Luis E Brewster on 01-28-2024 Magnesium [Mass/Vol] 1.8 mg/dL Low 1.9-2.7 [facility] Comment on above: Performed By: #### V [id number], TSH3 wRFLX, LIPID #### [facility] [address] Monocyte distribution width [Entitic volume] in Blood by AutomatedOrdered By: Luis E Brewster on 01-28-2024 Monocyte distribution width Auto (Bld) [Entitic vol] 15.79 % 0.00-20.00 [facility] Neutrophils [#/volume] in Bl ood by Automated countOrdered By: Luis E Brewster on 01-28-2024 Neutrophils (Bld) [#/Vol] 3.8 10*3/uL Normal 1.8-7.7 [facility] Comment on above: Performed By: #### V [id number], TSH3 wRFLX, LIPID #### [facility] [address] [place] [address] Nitrite Test strip Ql (U)Ord ered By: Luis E Brewster on 01-28-2024 Nitrite Ql (U) Negative Negative [facility] No Panel InformationOrdered By: Luis E Brewster on 01-28-2024 Estimated GFR (CKD-EPI) > 60.0 mL/Min [facility] Creatinine Clearance (Chem 95.71 [facility] Nucleated erythrocytes [Pres ence] in Blood by Automated countOrdered By: Luis E Brewster on 01-28-2024 Nucleated RBC Auto Ql (Bld) 0.1 /100{WBC} 0-0.5 [facility] Platelet mean volume [Entiti c volume] in Blood by Automated countOrdered By: Luis E Brewster on 01-28-2024 Platelet mean volume (Bld) [Entitic vol] 8.1 fL Normal 6.3-10.7 [facility] Comment on above: Performed By: #### V [id number], TSH3 wRFLX, LIPID #### [facility] [address] Platelets [#/volume] in Bloo d by Automated countOrdered By: Luis E Brewster on 01-28-2024 Platelets (Bld) [#/Vol] 321 10*3/uL Normal 150-450 [facility] Comment on above: Performed By: #### V [id number], TSH3 wRFLX, LIPID #### [facility] [address] [place] [address] Potassium [Moles/volume] in Serum or PlasmaOrdered By: Luis E Brewster on 01-28-2024 Potassium [Moles/Vol] 3.8 mmol/L Normal 3.5-5.1 [facility] Comment on above: Performed By: #### V [id number], TSH3 wRFLX, LIPID #### [facility] [address] [place] [address] Protein Auto test strip (U) [Mass/Vol]Ordered By: Luis E Brewster on 01-28-2024 Protein (U) [Mass/Vol] Negative Negative [facility] Protein [Mass/volume] in Ser um or PlasmaOrdered By: Luis E Brewster on 01-28-2024 Protein [Mass/Vol] 6.5 g/dL Normal 6.4-8.9 [facility] Comment on above: Performed By: #### V [id number], TSH3 wRFLX, LIPID #### [facility] [address] [place] [address] Serum globulin measurement b y calculation (mass/volume)Ordered By: Luis E Brewster on 01-28-2024 Globulin (S) [Mass/Vol] 2.3 g/dL Normal [facility] Comment on above: Performed By: #### V [id number], TSH3 wRFLX, LIPID #### [facility] [address] [place] [address] Serum or plasma albumin/glob ulin mass ratioOrdered By: Luis E Brewster on 01-28-2024 Albumin/Globulin [Mass ratio] 1.8 {ratio} Normal [facility] Comment on above: Performed By: #### V [id number], TSH3 wRFLX, LIPID #### [facility] [address] Serum or plasma anion gap de terminationOrdered By: Luis E Brewster on 01-28-2024 Anion gap [Moles/Vol] 8.2 mmol/L Normal 6.0-15.0 [facility] Comment on above: Performed By: #### V [id number], TSH3 wRFLX, LIPID #### [facility] [address] [place] [address] [place] Sodium [Moles/volume] in Ser um or PlasmaOrdered By: Luis E Brewster on 01-28-2024 Sodium [Moles/Vol] 140 mmol/L Normal 136-145 [facility] Comment on above: Performed By: #### V [id number], TSH3 wRFLX, LIPID #### [facility] [address] [place] [address] Specific gravity Auto test s trip (U) [Rel density]Ordered By: Luis E Brewster on 01-28-2024 Specific gravity (U) [Rel density] 1.016 1.001-1.030 [facility] Squamous epithelial cells de tection in urine sediment by light microscopyOrdered By: Luis E Brewster on 01-28-2024 Epithelial cells.squamous LM Ql (Urine sed) 3-4 [HPF] 0-2 [facility] Thyrotropin [Units/volume] i n Serum or PlasmaOrdered By: Luis E Brewster on 01-28-2024 TSH Qn 0.85 m[IU]/L Normal 0.45-5.33 [facility] Comment on above: Result Comment: PERF ORMED BY: [place] [address] PATHOLOGIST COMMERCIAL MANAGER CHESTER HANNON M.D. Performed By: #### V [id number], TSH3 wRFLX, LIPID #### [facility] [address] [place] [address] [place] Urea nitrogen [Mass/volume] in Serum or PlasmaOrdered By: Luis E Brewster on 01-28-2024 Urea nitrogen [Mass/Vol] 8 mg/dL Normal 7-25 [facility] Comment on above: Performed By: #### V [id number], TSH3 wRFLX, LIPID #### [facility] [address] Urine bacteria detection by automated methodOrdered By: Luis E Brewster on 01-28-2024 Bacteria Auto Ql (U) 1+ None Seen [facility] Urine clarity by refractomet ry automatedOrdered By: Luis E Brewster on 01-28-2024 Clarity Refractometry automated (U) Cloudy Clear [facility] Urine glucose measurement by automated test strip (mass/volume)Ordered By: Luis E Brewster on 01-28-2024 Glucose Auto test strip (U) [Mass/Vol] Normal mg/dL Normal [facility] Urine hemoglobin detection b y automated test stripOrdered By: Luis E Brewster on 01-28-2024 Hemoglobin Auto test strip Ql (U) Negative Negative [facility] Urine leukocyte esterase det ection by automated test stripOrdered By: Luis E Brewster on 01-28-2024 Leukocyte esterase Auto test strip Ql (U) Negative Negative [facility] Urine pH measurement by auto mated test stripOrdered By: Luis E Brewster on 01-28-2024 pH (U) 7.5 [pH] Normal 5.0-9.0 [facility] Comment on above: Order Comment: Name Collection Type:: Voided Performed By: #### U HCG, ADDONUAPLUS #### [facility] [address] [place] [address] Urobilinogen Auto test strip (U) [Mass/Vol]Ordered By: Luis E Brewster on 01-28-2024 Urobilinogen (U) [Mass/Vol] Normal mg/dL Normal [facility] ECG 12 lead ECGon 01-23-2024 ECG 12 lead ECG [facility] [address] [place] [address] Electrocardiograph Report Signed Patient: Harriet Patino MR#: [id number] 6 : 1985 Acct:[id number] Age/Sex: 38 / F ADM Date: 01/23/24 Loc: ER Room: Type: [facility] ER Attending Dr: Ordering Provider: Marie Zelaya DO Date of Service: 01/23/24 ECG/ECG 12 lead ECG: chest pain Copies to: Test Reason : Blood Pressure : 131/079 mmHG Vent. Rate : 073 BPM Atrial Rate : 073 BPM P-R Int : 124 ms QRS Dur : 078 ms QT Int : 380 ms P-R-T Axes : 086 080 062 degrees QTc Int : 418 ms Normal sinus rhythm with sinus arrhythmia Normal ECG When compared with ECG of 11-JAN-2011 18:24, No significant change was found Confirmed by ANDRIY LYLE FACCMARIE ([id number]) on 01/26/2024 12:02:30 PM Referred By: Electronically Signed By:MARIE BURNETT MD FACC Transcribed By: MUS Signed By Tank Burnett MD 01/26/24 1202 Normal [facility] Alanine aminotransferase [En zymatic activity/volume] in Serum or PlasmaOrdered By: Mauri Woo on 10-29-2023 ALT [Catalytic activity/Vol] 12 U/L 7-52 [facility] Albumin [Mass/volume] in Ser um or Plasma by Bromocresol green (BCG) dye binding methoOrdered By: Mauri Woo on 10-29-2023 Albumin BCG dye [Mass/Vol] 4.5 g/dL 3.5-5.7 [facility] Alkaline phosphatase [Enzyma tic activity/volume] in Serum or PlasmaOrdered By: Mauri Woo on 10-29-2023 ALP [Catalytic activity/Vol] 67 U/L 34-104 [facility] Aspartate aminotransferase [ Enzymatic activity/volume] in Serum or PlasmaOrdered By: Mauri Woo on 10-29-2023 AST [Catalytic activity/Vol] 12 U/L 13-39 [facility] Basophils Auto (Bld) [#/Vol] Ordered By: Mauri Woo on 10-29-2023 Basophils (Bld) [#/Vol] 0.0 10*3/uL 0.0-0.2 [facility] Basophils/100 WBC Auto (Bld) Ordered By: Mauri Woo on 10-29-2023 Basophils/100 WBC (Bld) 0.4 % . [facility] Bilirubin Test strip Ql (U)O rdered By: ADOLPH COOK on 10-29-2023 Bilirubin Ql (U) Negative Negative [facility] Bilirubin.total [Mass/volume ] in Serum or PlasmaOrdered By: Mauri Woo on 10-29-2023 Bilirubin [Mass/Vol] 0.4 mg/dL 0.3-1.0 [facility] COVID CepheidOrdered By: Jackson Woo on 10-29-2023 SARS-CoV-2 (COVID-19) Ab IA Ql Negative Negative [facility] Comment on above: This is a duplicate [employer] Xpert Xpress CoV-2/Flu/RSV Plus RNA by RT-PCR result to be used for statistical tracking purpose only. SARS-CoV-2 (COVID-19) RNA BO+probe Ql (Unsp spec) [facility] SARS-CoV-2 (COVID-19) RNA BO+probe Ql (Unsp spec) [facility] Calcium [Mass/volume] in Ser um or PlasmaOrdered By: Mauri Woo on 10-29-2023 Calcium [Mass/Vol] 10.5 mg/dL 8.6-10.3 [facility] Carbon dioxide, total [Moles /volume] in Serum or PlasmaOrdered By: Mauri Woo on 10-29-2023 CO2 [Moles/Vol] 24.9 mmol/L 21.0-31.0 [facility] Chloride [Moles/volume] in S claudio or PlasmaOrdered By: Mauri Woo on 10-29-2023 Chloride [Moles/Vol] 105 mmol/L 98-107 [facility] Color Auto (U)Ordered By: CLARICE COOK on 10-29-2023 Color (U) Yellow Yellow [facility] Creatinine [Mass/volume] in Serum or PlasmaOrdered By: Mauri Woo on 10-29-2023 Creatinine [Mass/Vol] 0.98 mg/dL 0.60-1.20 [facility] Eosinophils Auto (Bld) [#/Vo l]Ordered By: Mauri Woo on 10-29-2023 Eosinophils (Bld) [#/Vol] 0.0 10*3/uL 0.0-0.45 [facility] Eosinophils/100 WBC Auto (Bl d)Ordered By: Mauri Woo on 10-29-2023 Eosinophils/100 WBC (Bld) 0.1 % . [facility] Erythrocyte distribution wid th Auto (RBC) [Ratio]Ordered By: Mauri Woo on 10-29-2023 Erythrocyte distribution width (RBC) [Ratio] 14.9 % 11.9-15.3 [facility] Globulin Calc (S) [Mass/Vol] Ordered By: Mauri Woo on 10-29-2023 Globulin (S) [Mass/Vol] 2.9 g/dL [facility] Glucose [Mass/volume] in Ser um or PlasmaOrdered By: Mauri Woo on 10-29-2023 Glucose [Mass/Vol] 110 mg/dL 70-100 [facility] Comment on above: ADA recommended refe rence rangeRandom Glucose Reference Range is dependent on time and content of last meal. Glucose of more than 200 mg/dL in a nonstressed, ambulatory subject supports the diagnosis of Diabetes Mellitus. HCG ( test) IAjossie d Ql (U)Ordered By: PROVIDER TEMTeto on 10-29-2023 HCG ( test) Ql (U) Negative [facility] Hematocrit Auto (Bld) [Volum e fraction]Ordered By: Mauri Woo on 10-29-2023 Hematocrit (Bld) [Volume fraction] 42.3 % 34.0-46.4 [facility] Hemoglobin [Mass/volume] in BloodOrdered By: Mauri Woo on 10-29-2023 Hemoglobin (Bld) [Mass/Vol] 14.3 g/dL 11.8-15.4 [facility] Ketones Auto test strip (U) [Mass/Vol]Ordered By: PROVIDER TEMTeto on 10-29-2023 Ketones (U) [Mass/Vol] Trace Negative [facility] Leukocytes [#/volume] correc yamila for nucleated erythrocytes in Blood by Automated counOrdered By: Mauri Woo on 10-29-2023 WBC corrected for nucl RBC Auto (Bld) [#/Vol] 11.1 10*3/uL 3.8-11.6 [facility] Lipase [Enzymatic activity/v olume] in Serum or PlasmaOrdered By: Mauri Woo on 10-29-2023 Lipase [Catalytic activity/Vol] 11.0 U/L 11.0-82.0 [facility] Lymphocytes Auto (Bld) [#/Vo l]Ordered By: Mauri Woo on 10-29-2023 Lymphocytes (Bld) [#/Vol] 1.3 10*3/uL 1.00-4.8 [facility] Lymphocytes/100 WBC Auto (Bl d)Ordered By: Mauri Woo on 10-29-2023 Lymphocytes/100 WBC (Bld) 11.4 % . [facility] MCH Auto (RBC) [Entitic mass ]Ordered By: Mauri Woo on 10-29-2023 MCH (RBC) [Entitic mass] 29.1 pg 24.7-34.3 [facility] MCHC Auto (RBC) [Mass/Vol]Or dered By: Mauir Woo on 10-29-2023 MCHC (RBC) [Mass/Vol] 33.7 g/dL 32.0-35.0 [facility] MCV Auto (RBC) [Entitic vol] Ordered By: Mauri Woo on 10-29-2023 MCV (RBC) [Entitic vol] 86.5 fL 80-100 [facility] Monocyte distribution width [Entitic volume] in Blood by AutomatedOrdered By: Mauri Woo on 10-29-2023 Monocyte distribution width Auto (Bld) [Entitic vol] 15.53 % 0.00-20.00 [facility] Monocytes Auto (Bld) [#/Vol] Ordered By: Mauri Woo on 10-29-2023 Monocytes (Bld) [#/Vol] 0.3 10*3/uL 0.0-0.8 [facility] Monocytes/100 WBC Auto (Bld) Ordered By: Mauri Woo on 10-29-2023 Monocytes/100 WBC (Bld) 3.0 % . [facility] Neutrophils Auto (Bld) [#/Vo l]Ordered By: Mauri Woo on 10-29-2023 Neutrophils (Bld) [#/Vol] 9.4 10*3/uL 1.8-7.7 [facility] Neutrophils/100 WBC Auto (Bl d)Ordered By: Mauri Woo on 10-29-2023 Neutrophils/100 WBC (Bld) 85.1 % . [facility] Nitrite Test strip Ql (U)Ord ered By: PROVIDER TEMP on 10-29-2023 Nitrite Ql (U) Negative Negative [facility] No Panel InformationOrdered By: Mauri Woo on 10-29-2023 Estimated GFR (CKD-EPI) > 60.0 mL/Min [facility] Creatinine Clearance (Chem 83.81 [facility] Nucleated erythrocytes [Pres ence] in Blood by Automated countOrdered By: Mauri Woo on 10-29-2023 Nucleated RBC Auto Ql (Bld) 0.0 /100{WBC} 0-0.5 [facility] Platelet mean volume Auto (B ld) [Entitic vol]Ordered By: Mauri Woo on 10-29-2023 Platelet mean volume (Bld) [Entitic vol] 7.9 fL 6.3-10.7 [facility] [facility] Platelets Auto (Bld) [#/Vol] Ordered By: Mauri Woo on 10-29-2023 Platelets (Bld) [#/Vol] 362 10*3/uL 150-450 [facility] Potassium [Moles/volume] in Serum or PlasmaOrdered By: Mauri Woo on 10-29-2023 Potassium [Moles/Vol] 3.9 mmol/L 3.5-5.1 [facility] Protein Auto test strip (U) [Mass/Vol]Ordered By: PROVIDER TEMP on 10-29-2023 Protein (U) [Mass/Vol] Negative Negative [facility] Protein [Mass/volume] in Ser um or PlasmaOrdered By: Mauri Woo on 10-29-2023 Protein [Mass/Vol] 7.4 g/dL 6.4-8.9 [facility] RBC Auto (Bld) [#/Vol]Ordere d By: Mauri Woo on 10-29-2023 RBC (Bld) [#/Vol] 4.89 10*6/uL 3.60-5.00 [facility] Serum or plasma albumin/glob ulin mass ratioOrdered By: Mauri Woo on 10-29-2023 Albumin/Globulin [Mass ratio] 1.6 {ratio} [facility] Serum or plasma anion gap de terminationOrdered By: Mauri Woo on 10-29-2023 Anion gap [Moles/Vol] 12.0 mmol/L 6.0-15.0 [facility] Sodium [Moles/volume] in Ser um or PlasmaOrdered By: Mauri Woo on 10-29-2023 Sodium [Moles/Vol] 138 mmol/L 136-145 [facility] Specific gravity Auto test s trip (U) [Rel density]Ordered By: PROVIDER TEM on 10-29-2023 Specific gravity (U) [Rel density] 1.003 1.001-1.030 [facility] Urea nitrogen [Mass/volume] in Serum or PlasmaOrdered By: Mauri Woo on 10-29-2023 Urea nitrogen [Mass/Vol] 7 mg/dL 7-25 [facility] Urine clarity by refractomet ry automatedOrdered By: PROVIDER TEMP on 10-29-2023 Clarity Refractometry automated (U) Clear Clear [facility] Urine glucose measurement by automated test strip (mass/volume)Ordered By: PROVIDER TEMP on 10-29-2023 Glucose Auto test strip (U) [Mass/Vol] Normal mg/dL Normal [facility] Urine hemoglobin detection b y automated test stripOrdered By: PROVIDER TEMP on 10-29-2023 Hemoglobin Auto test strip Ql (U) Negative Negative [facility] Urine leukocyte esterase det ection by automated test stripOrdered By: PROVIDER TEMP on 10-29-2023 Leukocyte esterase Auto test strip Ql (U) Negative Negative [facility] Urobilinogen Auto test strip (U) [Mass/Vol]Ordered By: PROVIDER TEMP on 10-29-2023 Urobilinogen (U) [Mass/Vol] Normal mg/dL Normal [facility] WBC Auto (Bld) [#/Vol]Ordere d By: Mauri Woo on 10-29-2023 WBC (Bld) [#/Vol] 11.1 10*3/uL 3.8-11.6 [facility] pH Auto test strip (U)Ordere d By: PROVIDER TEMP on 10-29-2023 pH (U) 7.5 [pH] 5.0-9.0 [facility] Vital Signs Date Time Vital Sign Value Performing Clinician Faci lity 12-08-2024 07:30-0500 Body temperature 98 [degF] [facility] Work Phone: [facility] 12-08-2024 07:30-0500 Diastolic blood pressure 80 mm[Hg] [facility] Work Phone: [facility] 12-08-2024 07:30-0500 Heart rate 71 /min [facility] Work Phone: [facility] 12-08-2024 07:30-0500 Respiratory rate 16 /min [facility] Work Phone: [facility] 12-08-2024 07:30-0500 SaO2% (BldA) [Mass fraction] 100 % [facility] Work Phone: [facility] 12-08-2024 07:30-0500 Systolic blood pressure 121 mm[Hg] [facility] Work Phone: [facility] 12-07-2024 11:34-0500 Body weight 68.71 kg [facility] Work Phone: [facility] 12-03-2024 14:48-0500 Body height 157.48 cm [facility] Work Phone: [facility] 12-02-2024 17:54-0500 Diastolic blood pressure 76 mm[Hg] [facility] Work Phone: [facility] 12-02-2024 17:54-0500 Heart rate 100 /min [facility] Work Phone: [facility] 12-02-2024 17:54-0500 Respiratory rate 20 /min [facility] Work Phone: [facility] 12-02-2024 17:54-0500 SaO2% (BldA) [Mass fraction] 96 % [facility] [facility] Work Phone: [facility] 12-02-2024 17:54-0500 Systolic blood pressure 117 mm[Hg] [employer] [facility] Work Phone: [facility] 12-02-2024 16:11-0500 Body height 157.48 cm [employer] [facility] Work Phone: [facility] 12-02-2024 16:11-0500 Body temperature 98.1 [degF] [facility] [employer] [facility] Work Phone: [facility] 12-02-2024 16:11-0500 Body weight 68.8 kg [facility] Work Phone: [facility] 09-23-2024 07:30-0500 Body temperature 97.3 [degF] PHYSICIAN NO [facility] 09-23-2024 07:30-0500 Diastolic blood pressure 85 mm[Hg] PHYSICIAN NO [facility] 09-23-2024 07:30-0500 Heart rate 83 /min PHYSICIAN NO [facility] 09-23-2024 07:30-0500 Respiratory rate 18 /min PHYSICIAN NO [facility] 09-23-2024 07:30-0500 SaO2% (BldA) [Mass fraction] 100 % PHYSICIAN NO [facility] 09-23-2024 07:30-0500 Systolic blood pressure 133 mm[Hg] PHYSICIAN NO [facility] 09-21-2024 09:00-0500 Body weight 68.94 kg PHYSICIAN NO [facility] 09-18-2024 14:31-0500 Body height 162.56 cm PHYSICIAN NO [facility] 09-14-2024 20:49-0500 Diastolic blood pressure 88 mm[Hg] PHYSICIAN NO [facility] 09-14-2024 20:49-0500 Heart rate 98 /min PHYSICIAN NO [facility] 09-14-2024 20:49-0500 Respiratory rate 18 /min PHYSICIAN NO [facility] 09-14-2024 20:49-0500 SaO2% (BldA) [Mass fraction] 99 % PHYSICIAN NO [facility] 09-14-2024 20:49-0500 Systolic blood pressure 155 mm[Hg] PHYSICIAN NO [facility] 09-14-2024 16:50-0500 Body height 162.56 cm PHYSICIAN NO [facility] 09-14-2024 16:50-0500 Body temperature 97.5 [degF] PHYSICIAN NO [facility] 09-14-2024 16:50-0500 Body weight 68.2 kg PHYSICIAN NO [facility] 06-02-2024 13:44-0400 Blood Pressure Location Radha Orzech [facility] 06-02-2024 13:44-0400 Diastolic blood pressure 70 mm[Hg] Radha Orzech [facility] 06-02-2024 13:44-0400 Systolic blood pressure 107 mm[Hg] Radha Orzech [facility] 03-30-2024 20:30-0400 Diastolic blood pressure 71 mm[Hg] [facility] Work Phone: [facility] 03-30-2024 20:30-0400 Heart rate 72 /min [facility] Work Phone: [facility] 03-30-2024 20:30-0400 Respiratory rate 24 /min [facility] Work Phone: [facility] 03-30-2024 20:30-0400 SaO2% (BldA) [Mass fraction] 97 % [facility] [employer] Work Phone: [facility] 03-30-2024 20:30-0400 Systolic blood pressure 130 mm[Hg] [employer] [facility] Work Phone: [facility] 03-30-2024 18:45-0400 Body height 157.48 cm [facility] Work Phone: [facility] 03-30-2024 18:45-0400 Body temperature 98.6 [degF] [facility] Work Phone: [facility] 03-30-2024 18:45-0400 Body weight 81.64 kg [facility] [employer] Work Phone: [facility] 01-28-2024 16:06-0400 Body temperature 97.7 [degF] PHYSICIAN NO [facility] 01-28-2024 16:06-0400 Diastolic blood pressure 79 mm[Hg] PHYSICIAN NO [facility] 01-28-2024 16:06-0400 Heart rate 62 /min PHYSICIAN NO [facility] 01-28-2024 16:06-0400 Respiratory rate 17 /min PHYSICIAN NO [facility] 01-28-2024 16:06-0400 SaO2% (BldA) [Mass fraction] 99 % PHYSICIAN NO [facility] 01-28-2024 16:06-0400 Systolic blood pressure 132 mm[Hg] PHYSICIAN NO [facility] 01-28-2024 14:20-0400 Body height 157.48 cm PHYSICIAN NO [facility] 01-28-2024 14:20-0400 Body weight 86.6 kg PHYSICIAN NO [facility] 01-23-2024 17:46-0400 Heart rate 73 /min PHYSICIAN NO [facility] 01-23-2024 17:36-0400 Body height 157.48 cm PHYSICIAN NO [facility] 01-23-2024 17:36-0400 Body temperature 97.9 [degF] PHYSICIAN NO [facility] 01-23-2024 17:36-0400 Body weight 87.54 kg PHYSICIAN NO [facility] 01-23-2024 17:36-0400 Diastolic blood pressure 79 mm[Hg] PHYSICIAN NO [facility] 01-23-2024 17:36-0400 Respiratory rate 20 /min PHYSICIAN NO [facility] 01-23-2024 17:36-0400 SaO2% (BldA) [Mass fraction] 98 % PHYSICIAN NO [facility] 01-23-2024 17:36-0400 Systolic blood pressure 131 mm[Hg] PHYSICIAN NO [facility] 10-29-2023 22:12-0500 Diastolic blood pressure 62 mm[Hg] PHYSICIAN NO [facility] 10-29-2023 22:12-0500 Heart rate 90 /min PHYSICIAN NO [facility] 10-29-2023 22:12-0500 Respiratory rate 16 /min PHYSICIAN NO [facility] 10-29-2023 22:12-0500 SaO2% (BldA) [Mass fraction] 98 % PHYSICIAN NO [facility] 10-29-2023 22:12-0500 Systolic blood pressure 116 mm[Hg] PHYSICIAN NO [facility] 10-29-2023 18:26-0500 Body height 157.48 cm PHYSICIAN NO [facility] 10-29-2023 18:26-0500 Body temperature 98.3 [degF] PHYSICIAN NO [facility] 10-29-2023 18:26-0500 Body weight 92.1 kg PHYSICIAN NO [facility] Encounters Encounter Date Encounter Type Care Provider Facility Start: 12-15-2024 ambulatory PHYSICIAN NO [facility] Start: 12-03-2024 Non-patient / Non-visit [facility] Work Phone: [facility] Work Phone: Start: 12-02-2024 End: 12-08-2024 Evaluation and management of inpatient [facility] Work Phone: [facility] Work Phone: Start: 12-02-2024 Registered Recurring [facility] Work Phone: [facility] Start: 10-27-2024 Registered Recurring [facility] Work Phone: [facility] Start: 10-07-2024 End: 10-07-2024 Emergency department patient visit [facility] Work Phone: [facility] Work Phone: Start: 10-07-2024 ambulatory Sravani Allen Facility:[facility] Start: 10-07-2024 End: 10-07-2024 Patient encounter procedure Sravani Allen [facility] Start: 09-22-2024 Non-patient / Non-visit PHYSICIAN NO [facility] Work Phone: Start: 09-15-2024 Non-patient / Non-visit PHYSICIAN NO [facility] Physician [facility] Work Phone: Start: 09-14-2024 End: 09-23-2024 Evaluation and management of inpatient PHYSICIAN NO [facility] Work Phone: Start: 09-14-2024 Registered Recurring PHYSICIAN NO CARRIE [facility] Start: 08-12-2024 End: 08-18-2024 Evaluation and management of inpatient [facility] Start: 08-07-2024 Registered Recurring PHYSICIAN NO CARRIE [facility] Start: 06-02-2024 End: 06-02-2024 ambulatory RADHA CHAUDHRY Facility:[facility] Start: 06-02-2024 End: 06-02-2024 Patient encounter procedure Radha X Yen [facility] Start: 05-22-2024 End: 05-22-2024 ambulatory [facility] Work Phone: [facility] Work Phone: Start: 05-22-2024 End: 05-22-2024 Departed Referred [facility] Work Phone: [facility] Start: 05-05-2024 Registered Recurring [facility] Work Phone: [facility] Start: 03-30-2024 End: 03-30-2024 Emergency department patient visit [facility] Work Phone: [facility] Work Phone: Start: 03-18-2024 Registered Recurring [facility] Work Phone: [facility] Start: 02-12-2024 ambulatory Sravani Lue Facility:Yousuf Ocampousky Start: 01-28-2024 End: 01-28-2024 Emergency department patient visit PHYSICIAN NO [facility] Work Phone: Start: 01-23-2024 End: 01-23-2024 Emergency department patient visit PHYSICIAN NO [facility] Work Phone: Start: 11-27-2023 Registered Recurring PHYSICIAN PARAMJIT BUTLER [facility] Start: 10-29-2023 End: 10-29-2023 Emergency department patient visit PHYSICIAN NO [facility] Work Phone: Procedures Date Procedure Procedure Detail Performing Clinician Start: 12-02-2024 Urine culture [facility] Work Phone: Start: 03-31-2024 Duplex scan of lower limb veins Tonio jaeyos Work Phone: Start: 03-30-2024 Plain chest X-ray Donyaok bina [facility]os Work Phone: Start: 10-29-2023 SARS-CoV-2, Influenz a & RSV (PCR) PHYSICIAN NO FAMILY Start: 11-04-1988 Cystoscopy Radha castle Structure of eye pro per (body structure) Radha Barlow Plan of Treatment Date Care Activity Detail Author Start: 12-08-2024 [facility] Start: 12-02-2024 Hospital admission [facility] Start: 12-02-2024 [facility] Start: 09-23-2024 [facility] Start: 09-14-2024 Hospital admission [facility] Start: 09-14-2024 End: 09-14-2024 [facility] Start: 05-22-2024 [facility] Start: 03-30-2024 Plain chest X-ray XR chest 1V portab le [facility] Start: 03-30-2024 XR Chest Single view [facility] Start: 01-23-2024 End: 01-23-2024 [facility] Patient Education [facility] Work Phone: Patient referral [facility] Work Phone: US Lower extremity v ein - left [facility] Payers Date Payer Category Payer Self-pay 2023 Medicaid [id number] 1985 Unknown [id number] 2.16.8 [id number] 1985 Unknown [id number] 2.16.8 [id number] 1987 Unknown [id number] 2.16.8 [id number] [facility] [id number] Unknown [id number] 2.16.8 [id number] Unknown [id number] 2.16.8 [id number] Unknown [id number] 2.16.8 [id number] Unknown [id number] 2.16.8 [id number] Unknown [id number] 2.16.8 [id number] Unknown [id number] 2.16.8 [id number] Unknown [id number] 2.16.8 [id number] Unknown [id number] 2.16.8 [id number] Social History Date Type Detail Facility Start: 10-29-2023 Tobacco smoking status SCIS Current some day smoker [facility] Start: 1985 Sex Assigned At Female [facility] Start: 01-23-2024 End: 09-15-2024 Tobacco smoking status NHIS Smoker (finding) [facility] Start: 01-28-2024 End: 12-02-2024 Tobacco smoking status NHIS Ex-smoker (finding) [facility] Start: 06-02-2024 Tobacco smoking status Light tobacco smoker (finding) [facility] Tobacco smoking status Never [facility] Sex Assigned At Female [facility] Start: 09-14-2024 End: 12-08-2024 Sex Female (finding) [facility] NEGATED: Highlighted row [facility] Goals Date Patient Goal Desired Activity /State Functional Status Date Assessment Result Facility 12-08-2024 Functional status Patient at [facility] Work Phone: 09-23-2024 Functional status Patient at [facility] Work Phone: 06-02-2024 Functional Status N/A [facility] Mental Status Date Assessment Result Facility 12-08-2024 Cognitive function Cognitive Sta tus Patient at Baseline [facility] Work Phone: 09-23-2024 Cognitive function Cognitive Sta tus Patient at [facility] Work Phone: Clinical Notes 06-06-2024 to 12-07-2024 Note Date & Type Note Facility 12-07-2024 Progress note Note Date/Time December 07, 2024 2:02pm [facility] [address] [place] [address] Psychiatry Progress Note Signed Patient: Harriet Patino MR#: [id number] : 1985 Acct:[id number] Age/Sex: 39 / F Adm Date: 5 Loc: Room: [address] [place] [address] Type : ADM IN Attending Dr: Brandon Parson MD Copies to: ~ Date of Service: 12/07/2024 Subjective Subjective Narrative: Ms. Patino said she feels less distracted compared to the time of admission. Patient says her mood has improved and her racing thoughts have decreased. Her only complaint is that she feels the medications have made her feel tired. They have also increased her appetite. She denied any SI/HI. No AVH. Less paranoid compared to the time of admission. She discusses getting her license once discharged. MSE Appearance: grossly normal. Fair grooming and hygiene. Mental Status: mental status grossly normal Mood: Improved to euthymic Affect: mood-congruent affect Speech and Movement:normal rate and volume Attitude:cooperative Thought Process: Goal directed Thought Content: Reports improvement of paranoid or delusional thoughts. Deniedhallucinations, no homicidality or SI Insight: limited Judgment: limited Patient was personally seen by me on the day of the encounter. I reviewed the history and performed the messer elements of the physical examination. I formulated the plan of care and confirmed this with the medical student as noted below. Exam Physical Exam Vital Signs: Temp Pulse Resp BP Pulse Ox O2 Del Method 97.9 F 59 L 16 117/76 100 Room Air 12/07/24 07:30 12/07/24 07:30 12/07/24 07:30 12/07/24 07:30 12/07/24 07:30 12/07/24 07:30 Assessment/Plan Assessment/Plan (1) Schizoaffective disorder: (2) Manic episode: Plan Patient is less irritable on exam but still has some limited insight into her condition. Medications: Prolixin 5 mg at night and 2.5 mg daily. Continue Trileptal 300 mg PO HS. Offered Prolixin Dec but she refused. Encourage medication adherence.? Continue to monitor mental status Recommend attending groups and psychoeducation for building coping skills. Documented By: Luis Alberto Bird MD 12/07/24 1034 Signed By: <Electronically signed by Luis Alberto Bird MD> 12/07/24 1407 [facility] Work Phone: 1(272) 671-377502-03-2025 [place] [address] Psychiatry Progress Note Signed Patient: Harriet Patino MR#: [id number] : 1985 Acct:[id number] Age/Sex: 39 / F Adm Date: 5 Loc: Room: [address] [place] [address] Type : ADM IN Attending Dr: Brandon Parson MD Copies to: ~ Date of Service: 12/07/2024 Subjective Subjective Narrative: Ms. Patino said she feels less distracted compared to the time of admission. Patient says her mood has improved and her racing thoughts have decreased. Her only complaint is that she feels the medications have made her feel tired. They have also increased her appetite. She denied any SI/HI. No AVH. Less paranoid compared to the time of admission. She discusses getting her license once discharged. MSE Appearance: grossly normal. Fair grooming and hygiene. Mental Status: mental status grossly normal Mood: Improved to euthymic Affect: mood-congruent affect Speech and Movement:normal rate and volume Attitude:cooperative Thought Process: Goal directed Thought Content: Reports improvement of paranoid or delusional thoughts. Deniedhallucinations, no homicidality or SI Insight: limited Judgment: limited Patient was personally seen by me on the day of the encounter. I reviewed the history and performedthe messer elements of the physical examination. I formulated the plan of care and confirmed this withthe medical student as noted below. Exam Physical Exam Vital Signs: Temp Pulse Resp BP Pulse Ox O2 Del Method 97.9 F 59 L 16 117/76 100 Room Air 12/07/24 07:30 12/07/24 07:30 12/07/24 07:30 12/07/24 07:30 12/07/24 07:30 12/07/24 07:30 Assessment/Plan Assessment/Plan (1) Schizoaffective disorder: (2) Manic episode: Plan Patient is less irritable on exam but still has some limited insight into her condition. Medications: Prolixin 5 mg at night and 2.5 mg daily. Continue Trileptal 300 mg PO HS. Offered Prolixin Dec but she refused. Encourage medication adherence.? Continue to monitor mental status Recommend attending groups and psychoeducation for building coping skills. Documented By: Luis Alberto Bird MD 12/07/24 1034 Signed By: 12/07/24 1402 [facility]02-02-2025 Progress note Author Brandon hernandez [facility] Note Date/Time December 06, 2024 7 :02am [facility] [address] [place] [address] Psychiatry Progress Note Signed Patient: Harriet Patino MR#: [id number] : 1985 Acct:[id number] Age/Sex: 39 / F Adm Date: 5 Loc: Room: [address] [place] [address] Type : ADM IN Attending Dr: Brandon Parson MD Copies to: ~ Date of Service: 12/06/2024 Subjective Subjective Narrative: Ms. Patino said she feels less distracted compared to the time of admission. She requires less redirection compared to the time of admission. Still has intermittent flight of ideas. She is struggling with family relationships and isunsure what she will do when she is discharged from the hospital. She denied anySI/HI. No AVH. Less paranoid compared to the time of admission MSE Appearance: grossly normal. Fair grooming and hygiene. Mental Status: mental status grossly normal Mood: Dysthymic Affect: Labile affect Speech and Movement:normal rate and volume Attitude:cooperative Thought Process: Goal directed Thought Content: Reports improvement of paranoid or delusional thoughts. Deniedhallucinations, no homicidality or HI. Insight: limited Judgment: limited Exam Physical Exam Vital Signs: Temp Pulse Resp BP Pulse Ox O2 Del Method 97.5 F L 85 18 134/76 100 Room Air 12/05/24 23:06 12/05/24 23:06 12/05/24 23:06 12/05/24 23:06 12/05/24 23:06 12/05/24 23:06 Assessment/Plan Assessment/Plan (1) Schizoaffective disorder: (2) Manic episode: Plan Patient is less irritable on exam but still has limited insight into her condition. Continue Prolixin 5 mg BID, Trileptal 300 mg PO HS. Offered Prolixin Dec but she refused. Encourage medication adherence.? Continue to monitor mental status Recommend attending groups and psychoeducation for building coping skills. Documented By: Brandon Parson MD 5 [id number] Signed By: <Electronically signed by Brandon Parson MD> 12/06/24 0702 [facility] Work Phone: 1(206) 415-619802-02-2025 [place] [address] Psychiatry Progress Note Signed Patient: Harriet Patino MR#: [id number] : 1985 Acct:[id number] Age/Sex: 39 / F Adm Date: 5 Loc: Room: [address] [place] [address] Type : ADM IN Attending Dr: Brandon Parson MD Copies to: ~ Date of Service: 12/06/2024 Subjective Subjective Narrative: Ms. Patino said she feels less distracted compared to the time of admission. She requires less redirection compared to the time of admission. Still has intermittent flight of ideas. She is struggling with family relationships and isunsure what she will do when she is discharged from the hospital. She denied anySI/HI. No AVH. Less paranoid compared to the time of admission MSE Appearance: grossly normal. Fair grooming and hygiene. Mental Status: mental status grossly normal Mood: Dysthymic Affect: Labile affect Speech and Movement:normal rate and volume Attitude:cooperative Thought Process: Goal directed Thought Content: Reports improvement of paranoid or delusional thoughts. Deniedhallucinations, no homicidality or HI. Insight: limited Judgment: limited Exam Physical Exam Vital Signs: Temp Pulse Resp BP Pulse Ox O2 Del Method 97.5 F L 85 18 134/76 100 Room Air 12/05/24 23:06 12/05/24 23:06 12/05/24 23:06 12/05/24 23:06 12/05/24 23:06 12/05/24 23:06 Assessment/Plan Assessment/Plan (1) Schizoaffective disorder: (2) Manic episode: Plan Patient is less irritable on exam but still has limited insight into her condition. Continue Prolixin 5 mg BID, Trileptal 300 mg PO HS. Offered Prolixin Dec but she refused. Encourage medication adherence.? Continue to monitor mental status Recommend attending groups and psychoeducation for building coping skills. Documented By: Brandon Parson MD [id number] Signed By: 12/06/24 0702 [facility]02-01-2025 Progress note Author Brandon hernandez [facility] Note Date/Time December 05, 2024 7 :30am [facility] [address] [place] [address] Psychiatry Progress Note Signed Patient: Harriet Patino MR#: [id number] : 1985 Acct:[id number] Age/Sex: 39 / F Adm Date: 5 Loc: Room: [address] [place] [address] Type : ADM IN Attending Dr: Brandon Parson MD Copies to: ~ Date of Service: 12/05/2024 Subjective Subjective Narrative: Ms. Patino said she is not sure about her discharge plans. She has not talked toanyone yet from her family. She is tolearting the current med regimen. We discussed the benefit of Prolixin Dec but she refused no injections. Insight is still limited and she is at a higher risk of non compliance when she leaves. MSE Appearance: grossly normal. Fair grooming and hygiene. Agitated. Uncooperative.Poor eye contact. Normal psychomotor activity Mental Status: mental status grossly normal Mood: Dysthymic Affect: Labile affect Speech and Movement:normal rate and volume Attitude: Uncooperative Thought Process: disorganized ; tangential; delusional Thought Content: Reports paranoid or delusional thoughts. Denied hallucinations,no homicidality or HI. Judgment: limited Exam Physical Exam Vital Signs: Temp Pulse Resp BP Pulse Ox O2 Del Method 97.5 F L 62 16 127/78 100 Room Air 12/04/24 20:02 12/04/24 20:02 12/04/24 20:02 12/04/24 20:02 12/04/24 20:02 12/04/24 20:02 Assessment/Plan Assessment/Plan (1) Schizoaffective disorder: (2) Manic episode: Plan Patient is less irritable on exam. Insight is still limited and refused VARGAS She would like to talk to hospitalist about UTI treatment Continue Prolixin 5 mg BID, Trileptal 300 mg Encourage medication adherence.? Continue to monitor mental status Recommend attending groups and psychoeducation for building coping skills. Documented By: Brandon Parson MD [id number] Signed By: <Electronically signed by Brandon Parson MD> 12/05/24 0730 [facility] Work Phone: 1(560) 643-515002-01-2025 [place] [address] Psychiatry Progress Note Signed Patient: Harriet Patino MR#: [id number] : 1985 Acct:[id number] Age/Sex: 39 / F Adm Date: 5 Loc: Room: [address] [place] [address] Type : ADM IN Attending Dr: Brandon Parson MD Copies to: ~ Date of Service: 12/05/2024 Subjective Subjective Narrative: Ms. Patino said she is not sure about her discharge plans. She has not talked toanyone yet from her family. She is tolearting the current med regimen. We discussed the benefit of Prolixin Dec but she refused no injections. Insight is still limited and she is at a higher risk of non compliance whenshe leaves. MSE Appearance: grossly normal. Fair grooming and hygiene. Agitated. Uncooperative.Poor eye contact. Normal psychomotor activity Mental Status: mental status grossly normal Mood: Dysthymic Affect: Labile affect Speech and Movement:normal rate and volume Attitude: Uncooperative Thought Process: disorganized ; tangential; delusional Thought Content: Reports paranoid or delusional thoughts. Denied hallucinations,no homicidality or HI. Judgment: limited Exam Physical Exam Vital Signs: Temp Pulse Resp BP Pulse Ox O2 Del Method 97.5 F L 62 16 127/78 100 Room Air 12/04/24 20:02 12/04/24 20:02 12/04/24 20:02 12/04/24 20:02 12/04/24 20:02 12/04/24 20:02 Assessment/Plan Assessment/Plan (1) Schizoaffective disorder: (2) Manic episode: Plan Patient is less irritable on exam. Insight is still limited and refused VARGAS She would like to talk to hospitalist about UTI treatment Continue Prolixin 5 mg BID, Trileptal 300 mg Encourage medication adherence.? Continue to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 affect Speech and Movement: speech and movement normal and speech clear. Regular rate, rhythm,. Increased volume and accusatory tone. Non pressured. Attitude: cooperative Thought Process: disorganized ; tangential; delusional Thought Content: Reports paranoid or delusional thoughts. Denied hallucinations,no homicidality andno suicidality. Does appear to be responding to internal stimuli. Insight: limited Judgment: limited Patient was personally seen by me on the day of the encounter. I reviewed the history and performedthe messer elements of the physical examination. I formulated the plan of care and confirmed this withthe medical student as notedbelow. Patient presenting with concerns for paranoid thoughts. Multiple visits to the nursing station reporting accusations and concern for different things that are happening. Likely will need to be moved to special care due to paranoid thoughts. Observed talking to herself on the unit. [facility] Medical History (Updated 09/15/24 @ 14:54 by Ruba Genao) Schizoaffective disorder Fibromyalgia Bipolar 1 disorder Panic disorder Seizures Social History Smoking Status: Current every day smoker Tobacco Type: cigarettes Substance Use Type: None Meds Medications and Allergies Allergies latex Allergy (Severe, Verified 09/14/24 23:06) Hives lithium Adverse Reaction (Verified 09/14/24 23:06) Unknown Reaction prednisone Adverse Reaction (Verified 09/14/24 23:06) Agitated Exam Physical Exam Vital Signs: Temp Pulse Resp BP Pulse Ox O2 Del Method 98.1 F 100 18 138/89 98 Room Air 09/15/24 07:30 09/15/24 07:30 09/15/24 07:30 09/15/24 07:30 09/15/24 07:30 09/15/24 07:30 Results - Psychiatry Labs 09/14/24 18:00 09/14/24 18:00 Psychiatry Labs: 09/14/24 09/14/24 17:55 18:00 RBC 5.19 H Hgb 16.5 H Hct 47.9 H MCV 92.4 MCH 31.8 MCHC 34.4 RDW 14.3 Plt Count 344 MPV 7.3 Sodium 139 Potassium 3.5 Chloride 103 Carbon Dioxide 27.1 Anion Gap 12.4 BUN 5 L Creatinine 0.84 Calcium 9.7 Total Bilirubin 0.5 AST 12 L ALT 12 Alkaline Phosphatase 89 Total Protein 7.9 Albumin 4.8 Urine Color Colorless Urine Appearance Clear Urine pH 7.0 Ur Specific Eldon 1.003 Urine Protein Negative Urine Glucose (UA) Normal Urine Ketones Negative Urine Occult Blood Negative Urine Nitrite Negative Ur Leukocyte Esterase Negative Assessment/Plan (1) Manic episode: (2) Acute psychosis: (3) Schizoaffective disorder: Plan Patient presenting due to manic episode with psychotic features in the setting of poor medication compliance and limited insight into diagnosis. Will care unit due to psychotic symptoms -Start Invega 3mg PO daily -Continue to monitor mental status -Monitor suicidal behaviors for safety of self (15-minute face check). -Encourage medication adherence. Risks, benefits, and alternatives of treatment explained -Recommend? attending groups and psychoeducation for building coping skills. -Risks, benefits and indications of medications were discussed with the patient.? Documented By: Luis Alberto Bird MD 09/15/24 1431 Signed By: 09/15/24 1509 [facility]11-11-2024 Evaluation note* Diagnosis Onset Date Resolution Status Admit Date Acute psychosis acute September 14, 2024 8:41pm [facility] Work Phone: 1(244) 500-554911-11-2024 Evaluation note* Diagnosis Onset Date Resolution Status Admit Date Acute psychosis acute September 14, 2024 8:41pm Manic episode acute September 142023 8:41pm Schizoaffective disorder acute September 14, 2024 8:41pm [facility] Work Phone: 1([phone]) 288-507611-11-2024 Evaluation note* Diagnosis Onset Date Resolution Status Admit Date Manic episode acute September 142023 8:41pm Schizoaffective disorder acute September 14, 2024 8:41pm Acute psychosis resolved September 14, 2024 8:41pm [facility] Work Phone: 1([phone]) 325-745611-11-2024 Evaluation note* Diagnosis Onset Date Resolution Status Admit Date Manic episode acute September 142023 8:41pm Schizoaffective disorder acute September 14, 2024 8:41pm Acute psychosis resolved September 14, 2024 8:41pm Manic episode acute November 6:04pm Schizoaffective disorder acute December 02, 2024 6:04pm UTI (urinary tract infection) acute December 02, 2024 6:04pm [facility] Work Phone: 1(263) 368-122408-03-2024 NoteUrology Office/Clinic Note Chief Complaint Referral *Stress Incontinence HPI Staff Evaluation requested by Radha Chaudhry [employer] due to Stress Incontinence. Pt is a new pt. Never before seen in our office. (Verified on DA) Per referral papers, has seen Urology in [place] yrs ago. BMP 03/30/24 *BUN 11 Crea 0.83 eGFR >60.0 NEG UA 03/30/24 Does note she has reactions to abx. Not allergic to them. States she has had good response to Bactrim. Has had leaking her whole life. Has been to numerous urologists since age 4. Still unable to find reason. Bladder Scope at age 4 Leaking with coughing, sneezing and sudden urge. Does wear brief on occasion. History of Present Illness I have reviewed and verified the staff HPI to be accurate for this encounter. Portions of this record may have been created with voice recognition artificial intelligence software, specifically [employer], [employer] and or [employer]. Substitutions may have occurred due to the inherent limitations of voice recognition and artificial intelligence software. Review of Systems PHQ Score Initial Depression Screen Score: 0 SCORE Physical Exam Vitals & Measurements BP: 107/70 HT: 62 in HT: 158 cm WT: 77.5 kg WT: 170.5 lb BMI: 31.04 General: Well developed, well nourished, in no acute distress. Assessment/Plan 1. Stress incontinence, female (N39.3: Stress incontinence (female) (male)) Most bothersome to patient at this time due to her chronic cough. Voids every couple hours, feels that she is empty after voiding, but still may leak as soon as she coughs. Wears briefs on occasion when she knows that she would be doing activity and that causes her to leak more often. Patient states that she drinks mostly water, flavored desir throughout the day. Minimal intake of bladder irritants. We did discuss the relationship between urinary symptoms and bladder irritants, patient was provided with bladder irritants sheet. We discussed pelvic floor physical therapy at home or formal referral. Patient notes that she does consistently do Kegel exercises throughout the day. I did provide her with pelvic floor literature in office today. She declines formal referral at this time. We briefly discussed [employer] and [employer] in office today. Patient was provided with [employer] information per her request. We discussed further evaluation of the urethra and incontinence at follow-upvisit with full bladder. Patient agrees to this. -Avoid bladder irritants -Continue home PFPT -Follow-up 4 months with full bladder for [employer] assessment 2. Urge urinary incontinence (N39.41: Urge incontinence) This is less bothersome to the patient at this time. We did briefly discuss use of medication in the future. However, patient states that she is not interested in medication for the treatment of this. -Continue to avoid bladder irritants -Continue home PFPT Follow-up No qualifying data available Patient Education Urinary Incontinence Kegel Exercises Problem List/Past Medical History Ongoing ADHD Bipolar disorder Fibromyalgia Gastroesophageal reflux disease without esophagitis HSV infection Osteoarthritis Schizoaffective disorder Stress incontinence, female Urge urinary incontinence Historical No qualifying data Procedure/Surgical History Cystoscopy (1988), Eye. Medications Acidophilus Probiotic Blend, Oral, Daily magnesium amino acids chelate, Oral omeprazole 20 mg Cap-DR Vitamin B Complex oral capsule, Oral, Daily Vitamin D3 Allergies No Known Allergies Social History Tobacco 5-9 cigarettes (between 1/4 to 1/2 pack)/day in last 30 days Tobacco Use:. Never Smokeless Tobacco Use:. Cigarettes, Household tobacco concerns: No. Yes, 06/02/2024 Family History Diabetes: Mother and Father. Hypertension: Mother. Stroke: Father.[facility] CenterComment [facility]:Result Comment: Electronically Signed By: CHELLY Barlow APRN, Radha Mcclelland\.abhijeet\Date and Time Signed: 06/06/24 13:02 [id number] NotePatient Education Obstetrics and Gynecology Kegel Exercises Kegel exercises can help strengthen your pelvic floor muscles. The pelvic floor is a group of muscles that support your rectum, small intestine, and bladder. In females, pelvic floor muscles also help support the uterus. These muscles help you control the flow of urine and stool (feces). Kegel exercises are painless and simple. They do not require any equipment. Your provider may suggest Kegel exercises to: ? Improve bladder and bowel control. ? Improve sexual response. ? Improve weak pelvic floor muscles after surgery to remove the uterus (hysterectomy) or after , in females. ? Improve weak pelvic floor muscles after prostate gland removal or surgery, in males. Kegel exercises involve squeezing your pelvic floor muscles. These are the same muscles you squeezewhen you try to stop the flow of urine or keep from passing gas. The exercises can be done while sitting, standing, or lying down, but it is best to vary your position. Ask your health care provider which exercises are safe for you. Do exercises exactly as told by your health care provider and adjust them as directed. Do not begin these exercises until told by your health care provider. Exercises How to do Kegel exercises: 1. Squeeze your pelvic floor muscles tight. You should feel a tight lift in your rectal area. If you are a female, you should also feel a tightness in your vaginal area. Keep your stomach, buttocks, and legs relaxed. 2. Hold the muscles tight for up to 10 seconds. 3. Breathe normally. 4. Relax your muscles for up to 10 seconds. 5. Repeat as told by your health care provider. Repeat this exercise daily as told by your health care provider. Continue to do this exercise for at least 4?6 weeks, or for as long as told by your health care provider. You may be referred to a physical therapist who can help you learn more about how to do Kegel exercises. Depending on your condition, your health care provider may recommend: ? Varying how long you squeeze your muscles. ? Doing several sets of exercises every day. ? Doing exercises for several weeks. ? Making Kegel exercises a part of your regular exercise routine. This information is not intended to replace advice given to you by your health care provider. Make sure you discuss any questions you have with your health care provider. Document Revised: 03/01/2022 Document Reviewed: 03/01/2022 [email or web address] Patient Education ? 2022 [employer] 911. Urology Urinary Incontinence Urinary incontinence refers to a condition in which a person is unable to control where and when topass urine. A person with this condition will urinate involuntarily. This means that the person urinates when he or she does not mean to. What are the causes? This condition may be caused by: ? Medicines. ? Infections. ? Constipation. ? Overactive bladder muscles. ? Weak bladder muscles. ? Weak pelvic floor muscles. These muscles provide support for the bladder, intestine, and, in women, the uterus. ? Enlarged prostate in men. The prostate is a gland near the bladder. When it gets too big, it can pinch the urethra. With the urethra blocked, the bladder can weaken and lose the ability to empty properly. ? Surgery. ? Emotional factors, such as anxiety, stress, or post-traumatic stress disorder (PTSD). ? Spinal cord injury, nerve injury, or other neurological conditions. ? Pelvic organ prolapse. This happens in women when organs move out of place and into the vagina. This movement can prevent the bladder and urethra from working properly. What increases the risk? The following factors may make you more likely to develop this condition: ? Age. The older you are, the higher the risk. ? Obesity. ? Being physically inactive. ? and childbirth. ? Menopause. ? Diseases that affect the nerves or spinal cord. ? Long-term, or chronic, coughing. This can increase pressure on the bladder and pelvic floor muscles. What are the signs or symptoms? Symptoms may vary depending on the type of urinary incontinence you have. They include: ? A sudden urge to urinate, and passing urine involuntarily before you can get to a bathroom (urge incontinence). ? Suddenly passing urine when doing activities that force urine to pass, such as coughing, laughing, exercising, or sneezing (stress incontinence). ? Needing to urinate often but urinating only a small amount, or constantly dribbling urine (overflow incontinence). ? Urinating because you cannot get to the bathroom in time due to a physical disability, such as arthritis or injury, or due to a communication or thinking problem, such as Alzheimer's disease (functional incontinence). How is this diagnosed? This condition may be diagnosed based on: ? Your medical history. ? A physical exam. ? Tests, such as: ? Urine tests. ? X-rays of you (more content not included)...[facility] + Plan note Future Appointments Appointment Date:10/07/2024 10:45:00 AM Scheduled Provider:Sravani Allen MD Location:[facility] Appointment Type:URO Office Visit [facility] evaluation noteNo assessment information available [facility] Work Phone: History and physical note Author Luis Alberto Bird [facility] Note Date/Time September 15, 2024 3:08pm [facility] [address] [place] [address] Psychiatry H&P Signed Patient: Harriet Patino MR#: [id number] : 1985 Acct:[id number] Age/Sex: 39 / F Adm Date: 4 Loc: Room: [address] [place] [address] Type: ADM IN Attending Dr: Luis Alberto Bird MD Copies to: Luis Alberto Bird MD [facility]~ Date of Service: 09/15/2024 HPI History of Present Illness History of present illness: Harriet Patino is a 39 year old female?with a reported history of schizoaffective disorder?who presents for inpatient treatment due to?a manic episode and audio hallucinations. Reportedly, patient presented to the ER with her parents. It wasreported that the patient has been experiencing decreased sleep over 5 days and poor medication compliance due to undesirable side effects. Upon admission to [address] [place] [address], the patient was noted to be visibly anxious and manic. It was documented that Harriet was circumferential in her thought process and was very difficult to follow. She could not explain why she had been brought to [address] [place] [address]. At the time of the interview, she presented as manic. Harriet is a poor historian with very limited insight into her diagnosis and treatment. She was tangential with flight of ideas on exam. She admits to racing thoughts. She was unable to follow a single story line and was increasingly labile and irritable. When askedabout events leading to her admission, the patient states, I was praying for mymom and dad. I could hear them giggling and whispering. I thought it was so beautiful. Harriet also commented that her sister was sick and wasn't taking her meds right. She was very confrontational and accusatory toward other patients in the common area, often interrupting the interview to yell, Her. Hermeds aren't right or they're talking about me . Harriet explains that she was originally from [place], but lived in [place] for several years with her ex-girlfriend. Harriet implies that her ex-partner also shared a psychiatric diagnosis and that they were being overmedicated. She states she came back to [place] about 10 years ago and everything fell apart. She admits to not taking her medications, but is not clear on the timeline. Patient remained visibly agitated on exam and requested anxiolytic medications because her head was about to explode . Past psych history: Schizoaffective Disorder Past hospitalizations: One previous psychiatric hospitalization in October 2023in [place] Past suicide attempts: Denies Previous medications: Invega, Vistaril Alcohol and drug use: ?(+) daily marijuana use; (+) daily cigarette use Living: Lives at home with her parents Employment: Unemployed Review of Systems Constitutional: Positive for headache; Pt denies fatigue, malaise. Neuro: Denies dizziness/lightheadedness. Denies TBI, seizure, memory loss. Denies numbness/tingling in extremities HEENT: Denies vision/hearing changes. Pulmonary: Denies SOB, dyspnea, cough, wheezing. Cardiac: Denies chest pain/pressure. Denies edema, palpitations. GI: Denies abdominal pain, heartburn, N/V. Denies constipation and diarrhea : Denies dysuria, hematuria, polyuria. ? Physical exam General: not in any acute distress Skin: intact HEENT: head atraumatic, face symmetrical. Pulm: ?Breathing normally without excessive effort Cardio: Regular rate and rhythm Abdomen: Normal inspection Musculoskeletal: Moves all extremities, normal strength all extremities. Neuro: Pt alert, oriented x3. Gait normal. ? CNI: Intact, normal olfaction ? CNII: Visual schwarz intact ? ? ?CNIII,IV,: EOM intact, no nystagmus. ? ? ?CNV: Sensation intact to light touch. ? ? ?CNVII: Raises eyebrows, smile/frown, puff out cheeks symmetrically. ? ? ?CNVIII: Hearing intact bilaterally. ? ? ?CNIX,X: Voice normal, soft palate elevation normal, symmetrical. ? ? ?CNXI: Shoulder shrug strong, equal bilaterally. ? ? ?CNXII: Tongue protrusion midline MSE Appearance: grossly normal. Fair grooming and hygiene. Agitated. cooperative. Poor eye contact. Frequent leg twitching. Mental Status: mental status grossly normal Mood: Manic Affect: mood-congruent affect Speech and Movement: speech and movement normal and speech clear. Regular rate, rhythm,. Increased volume and accusatory tone. Non pressured. Attitude: cooperative Thought Process: disorganized ; tangential; delusional Thought Content: Reports paranoid or delusional thoughts. Denied hallucinations,no homicidality and no suicidality. Does appear to be responding to internal stimuli. Insight: limited Judgment: limited Patient was personally seen by me on the day of the encounter. I reviewed the history and performed the messer elements of the physical examination. I formulated the plan of care and confirmed this with the medical student as notedbelow. Patient presenting with concerns for paranoid thoughts. Multiple visits to the nursing station reporting accusations and concern for different things that are happening. Likely will need to be moved to special care due to paranoid thoughts. Observed talking to herself on the unit. [facility] Medical History (Updated 09/15/24 @ 14:54 by Ruba Genao) Schizoaffective disorder Fibromyalgia Bipolar 1 disorder Panic disorder Seizures Social History Smoking Status: Current every day smoker Tobacco Type: cigarettes Substance Use Type: None Meds Medications and Allergies Allergies latex Allergy (Severe, Verified 09/14/24 23:06) Hives lithium Adverse Reaction (Verified 09/14/24 23:06) Unknown Reaction prednisone Adverse Reaction (Verified 09/14/24 23:06) Agitated Exam Physical Exam Vital Signs: Temp Pulse Resp BP Pulse Ox O2 Del Method 98.1 F 100 18 138/89 98 Room Air 09/15/24 07:30 09/15/24 07:30 09/15/24 07:30 09/15/24 07:30 09/15/24 07:30 09/15/24 07:30 Results - Psychiatry Labs 09/14/24 18:00 09/14/24 18:00 Psychiatry Labs: 09/14/24 09/14/24 17:55 18:00 RBC 5.19 H Hgb 16.5 H Hct 47.9 H MCV 92.4 MCH 31.8 MCHC 34.4 RDW 14.3 Plt Count 344 MPV 7.3 Sodium 139 Potassium 3.5 Chloride 103 Carbon Dioxide 27.1 Anion Gap 12.4 BUN 5 L Creatinine 0.84 Calcium 9.7 Total Bilirubin 0.5 AST 12 L ALT 12 Alkaline Phosphatase 89 Total Protein 7.9 Albumin 4.8 Urine Color Colorless Urine Appearance Clear Urine pH 7.0 Ur Specific Eldon 1.003 Urine Protein Negative Urine Glucose (UA) Normal Urine Ketones Negative Urine Occult Blood Negative Urine Nitrite Negative Ur Leukocyte Esterase Negative Assessment/Plan (1) Manic episode: (2) Acute psychosis: (3) Schizoaffective disorder: Plan Patient presenting due to manic episode with psychotic features in the setting of poor medication compliance and limited insight into diagnosis. Will care unit due to psychotic symptoms -Start Invega 3mg PO daily -Continue to monitor mental status -Monitor suicidal behaviors for safety of self (15-minute face check). -Encourage medication adherence. Risks, benefits, and alternatives of treatment explained -Recommend? attending groups and psychoeducation for building coping skills. -Risks, benefits and indications of medications were discussed with the patient.? Documented By: Luis Alberto Bird MD 09/15/24 1431 Signed By: <Electronically signed by Luis Alberto Bird MD> 09/15/24 [id number] [facility] Work Phone: Hospital course Narrative No data available for this section [facility] Hospital Discharge instructions Additional Instructions Take Naprosyn as prescribed for headache, increase your intake of fluids and rest take Zofran as prescribed for nausea. Take Imodium as prescribed for any diarrhea. Follow-up with your primary care physician for reevaluation within 5 to 7 days.[facility] Work Phone: Hospital Discharge instructions No data available for this section [facility] progress note No data available for this section [facility] proggqrs note Author Luis Alberto Bird [facility] Note Date/Time September 16, 2024 12:08pm [facility] [address] [place] [address] Psychiatry Progress Note Signed Patient: Harriet Patino MR#: [id number] : 1985 Acct:[id number] Age/Sex: 39 / F Adm Date: 4 Loc: Room: [address] [place] [address] Type : ADM IN Attending Dr: Luis Alberto Bird MD Copies to: ~ Date of Service: 09/16/2024 Subjective Subjective Narrative: Harriet Patino is a 39 year old female on day 2 of hospitalization for peter with psychotic features. This morning, the patient was confrontational and irritable. She approached the nurses station demanding to speak with the doctor. During the interview, the patient expressed that her head felt foggy and accused staff of overdosing her without her consent to medication. She was not able to recall events from yesterday and states she has never had anxiety. Harriet remains manic on exam with flight of ideas and loose associations. She has delusional thoughts about and claims she and resurrected back in October 2023 when she was hospitalized at [facility] [place]. She believes her father is leaving her signs through her cigarettes. Moreover, Harriet admits to being noncompliant with pharmacotherapy and outpatient therapy because she doesn't trust her therapist and believes she does not require medication as she has already . Harriet would interrupt the interview several times to speak out loud to people who were not there, and remained paranoid that people were whispering about her. She denies SI/HI. She is compliant with oral medications, although she claims to never havetaken anything. At the end of the interview, Harriet stated that she would refuse food and drink until she was allowed out [facility] [place]. MSE Appearance: grossly normal. Fair grooming and hygiene. Agitated. cooperative. Good eye contact. Frequent leg twitching. Mental Status: mental status grossly normal Mood: Manic; Paranoid Affect: mood-congruent affect Speech and Movement: speech and movement normal and speech clear. Regular rate, rhythm. Increased volume and accusatory tone. Non pressured. Attitude: cooperative Thought Process: disorganized ; tangential; delusional Thought Content: Reports paranoid or delusional thoughts. Denied hallucinations,no homicidality and no suicidality. Does appear to be responding to internal stimuli. Insight: limited Judgment: limited Patient was personally seen by me on the day of the encounter. I reviewed the history and performed the messer elements of the physical examination. I formulated the plan of care and confirmed this with the medical student as noted below. Exam Physical Exam Vital Signs: Temp Pulse Resp BP Pulse Ox O2 Del Method 98.4 F 67 16 104/68 98 Room Air 09/16/24 07:30 09/16/24 07:30 09/16/24 07:30 09/16/24 07:30 09/16/24 07:30 09/16/24 07:30 Assessment/Plan Assessment/Plan (1) Manic episode: (2) Acute psychosis: (3) Schizoaffective disorder: Plan Patient demonstrates ongoing psychotic symptoms and remains manic and agitated on exam. Will continue current medication regimen and monitor. Increase Invega 6mg PO daily -Continue to monitor mental status -Monitor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
[2025-01-02 08:44] LABS: Basophils Absolute Auto 0.1 10^3/uL (0.0-0.1); Eosinophils Absolute Auto 0.1 10^3/uL (0.0-0.7); Eosinophils Percent Auto 1.4 % (0.9-7.0); Hematocrit 43.7 % (36.0-48.0); Hemoglobin 15.1 g/dL (12.0-16.0); Immature Granulocytes Abs Auto 0.04 10^3/uL (0.00-0.03); Immature Granulocytes Pct Auto 0.4 % (0.0-0.5); Lymphocytes Absolute Auto 1.4 10^3/uL (1.2-3.8); Lymphocytes Percent Auto 14.2 % (20.5-60.0); Mean Corpuscular HGB Conc 34.6 g/dL (29.9-35.2); Mean Corpuscular Hemoglobin 31.9 pg (26.7-34.0); Mean Corpuscular Volume 92.2 fL (81.0-99.0); Mean Platelet Volume 8.8 fL (9.5-13.5); Monocytes Absolute Auto 0.7 10^3/uL (0.3-0.8); Monocytes Percent Auto 7.2 % (1.7-12.0); Neutrophils Absolute Auto 7.6 10^3/uL (1.4-6.5); Neutrophils Percent Auto 75.8 % (43.0-75.0); Platelet Count 311 10^3/uL (150-450); Red Blood Count 4.74 10^6/uL (4.20-5.40); Red Cell Distribution Width 14.2 % (11.0-15.0)
[2025-01-02 09:03] LABS: Alanine Aminotransferase 15 U/L (14-59); Albumin Globulin Ratio 1.2; Albumin Level 3.6 g/dL (3.4-5.0); Alkaline Phosphatase 81 U/L (46-116); Anion Gap 12.2; Aspartate Amino Transferase 10 U/L (15-37); BUN Creatinine Ratio 12.1; Bilirubin Total 0.3 mg/dL (0.2-1.0); Calcium 8.9 mg/dL (8.5-10.1); Carbon Dioxide 28.6 mmol/L (21.0-32.0); Chloride 102 mmol/L (98-107); Estimated GFR (African America >60 (>=60 mL/min/1.73m^2); Estimated GFR (Non-African Ame >60 (>=60 mL/min/1.73m^2); Globulin 3.1 g/dL; Glucose 100 mg/dL (74-106); Potassium 3.8 mmol/L (3.5-5.1); Salicylate 12.7 mg/dL (<=19.9); Sodium 139 mmol/L (136-145); Total Protein 6.7 g/dL (6.4-8.2)
[2025-01-02 09:09] LABS: Acetaminophen <2.0 ug/mL (10.0-30.0); Ethanol <3 mg/dL
[2025-01-02 09:36] LABS: Bilirubin Urine NEGATIVE (NEGATIVE); Blood Urine NEGATIVE (NEGATIVE); Clarity Urine CLEAR (CLEAR); Color Urine YELLOW (YELLOW); Glucose Urine UA NEGATIVE (NEGATIVE); Ketones Urine NEGATIVE (NEGATIVE); Leukocyte Esterase Urine NEGATIVE (NEGATIVE); Nitrite Urine NEGATIVE (NEGATIVE); Protein Urine NEGATIVE (NEG/TRACE); Urobilinogen Urine 0.2 EU/dL (0.2-1.0)
[2025-01-02 09:37] LABS: HCG Qualitative Urine* NEGATIVE (NEGATIVE); Internal Control Within Normal Limits
[2025-01-02 09:48] VITALS: BP 138/99; PULSE 94; O2SAT 98
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
[2025-01-02 09:51] LABS: Bacteria Urine NONE SEEN #/HPF (NONE SEEN); Cast Seen? NONE SEEN #/LPF (NONE SEEN); Crystals Seen? None Seen #/HPF (None Seen); Mucus Urine NONE SEEN (NONE SEEN); RBC Urine 0-2 #/HPF (0-2); Squamous Epithelial Cell Urine RARE #/LPF (NONE/RARE); Urine Culture Indicated NO; WBC Urine NONE SEEN #/HPF (NONE SEEN)
[2025-01-02 14:45] LABS: Amphetamine Screen Urine NEGATIVE (NEGATIVE); Barbiturates Screen Urine NEGATIVE (NEGATIVE); Benzodiazepines Screen Urine NEGATIVE (NEGATIVE); Buprenorphine Screen Urine NEGATIVE (NEGATIVE); Cannabinoid Screen Urine POSITIVE (NEGATIVE); Cocaine Screen Urine NEGATIVE (NEGATIVE); Methadone Screen Urine NEGATIVE (NEGATIVE); Methamphetamines Screen Urine NEGATIVE (NEGATIVE); Opiate Screen Urine NEGATIVE (NEGATIVE); Oxycodone Screen Urine NEGATIVE (NEGATIVE); Phencyclidine Screen Urine NEGATIVE (NEGATIVE); Tricyclic Antidepressant Urine NEGATIVE (NEGATIVE)
--- NOTE | 2025-01-02 16:40 | ED.PSYCH1 ---
HPI - Psych General Chief Complaint: Psychiatric Symptoms Stated Complaint: anxiety, depression Time Seen by Provider: 01/02/25 08:22 Source: Reports patient Mode of arrival: ambulance Limitations: Reports no limitations History of Present Illness HPI Narrative: cc = suicidality The patient was brought in by EMS from home after she apparently expressed suicidal ideation in front of family members. She had apparently recently been admitted to psychiatric facility for anxiety, depression and suicidal thoughts. She told us that she took 4 doses of 5 mg cyclobenzaprine late last night. She denied that it was an attempt to kill herself. She said that she was simply feeling depressed and would not give us any more information. She said that she does not cut herself. She said that she has had numerous psychiatric hospitalizations in the past and has been babbling PTSD and depression almost all of my life . Related Data Home Medications ?Medication ?Instructions ?Recorded ?Confirmed cyclobenzaprine 5 mg tablet mg 01/02/25 fluphenazine HCl 2.5 mg tablet mg 01/02/25 fluphenazine HCl 5 mg tablet mg 01/02/25 hydroxyzine pamoate 50 mg capsule mg 01/02/25 oxcarbazepine 300 mg tablet mg 01/02/25 Allergies Allergy/AdvReac Type Severity Reaction Status Date / Time Unable to Assess Allergy Verified 01/02/25 09:35 PFSH PFSH Social History Little interest or pleasure in doing things: nearly every day Feeling down, depressed, or hopeless: nearly every day Exam Narrative Exam Narrative: Nurses notes and vital signs reviewed and patient is not hypoxic. afebrile General: Well-appearing and in no apparent distress. Skin: Warm, dry, no pallor noted. No evidence of self cutting on the forearms or other parts of the body. Head: Normocephalic, atraumatic. Eye: Pupils are equal, round and EOMI. No scleral icterus. Ears, Nose, Mouth, and Throat: Oral mucosa is moist Cardiovascular: Regular Rate and Rhythm without murmur, gallop or rub. Respiratory: No accessory muscle use or respiratory distress. Lungs are clear to auscultation, no wheezing, rales or rhonchi Musculoskeletal: normal ROM GI: Abdomen is soft, non-distended. Normal bowel sounds. No tenderness to palpation. No rebound, guarding, or rigidity noted. Neurological: A&O x4. No cranial nerve dysfunction observed. No truncal ataxia. Moves all extremities. Sensation intact. Psychiatric: Cooperative and interactive during my interaction with her. Depressed mood and flat affect. Constitutional Vital Signs, click to edit/add: Last Vital Signs Temp 98.4 F 01/02/25 08:13 Pulse 94 H 01/02/25 09:48 Resp 18 01/02/25 09:48 BP 138/99 H 01/02/25 09:48 Pulse Ox 98 01/02/25 09:48 O2 Del Method Room Air 01/02/25 08:13 Course Vital Signs Vital signs: Vital Signs Temperature 98.4 F 01/02/25 08:13 Pulse Rate 96 H 01/02/25 08:13 Respiratory Rate 16 01/02/25 08:13 Blood Pressure 135/97 H 01/02/25 08:13 Pulse Oximetry 100 01/02/25 08:13 Oxygen Delivery Method Room Air 01/02/25 08:13 Temperature 98.4 F 01/02/25 08:13 Pulse Rate 94 H 01/02/25 09:48 Respiratory Rate 18 01/02/25 09:48 Blood Pressure 138/99 H 01/02/25 09:48 Pulse Oximetry 98 01/02/25 09:48 Oxygen Delivery Method Room Air 01/02/25 08:13 MDM - Psych MDM Narrative Medical decision making narrative: Suicide precautions initiated. Constant observer was placed in direct line of sight of the patient and close enough to interact. Blood and urine sent for testing. Whitney, one of the assessors from [facility], came to the emergency department to speak with the patient and evaluate her. She came to the conclusion the patient would benefit from hospitalization at psychiatric facility and worked to try to make arrangements for that to happen. [facility] apparently does not have beds available in some the other facilities in the area were also lacking in bed availability. Whitney is hopeful that the patient will be accepted at [facility], which currently has beds available. Labs are unremarkable and the patient is medically cleared for psychiatric evaluation and potential admission. The patient was accepted by Dr. Padilla at [facility] in [place], [place], to be admitted for psychiatric services and treatment. Lab Data Labs: Lab Results 01/02/25 01/02/25 Range/Units 08:36 09:27 WBC 10.0 (4.0-11.0) 10^3/uL RBC 4.74 (4.20-5.40) 10^6/uL Hgb 15.1 (12.0-16.0) g/dL Hct 43.7 (36.0-48.0) % MCV 92.2 (81.0-99.0) fL MCH 31.9 (26.7-34.0) pg MCHC 34.6 (29.9-35.2) g/dL RDW 14.2 (11.0-15.0) % Plt Count 311 (150-450) 10^3/uL MPV 8.8 L (9.5-13.5) fL Neut % (Auto) 75.8 H (43.0-75.0) % Lymph % (Auto) 14.2 L (20.5-60.0) % [place] % (Auto) 7.2 (1.7-12.0) % Eos % (Auto) 1.4 (0.9-7.0) % Baso % (Auto) 1.0 (0.2-2.0) % Neut # (Auto) 7.6 H (1.4-6.5) 10^3/uL Lymph # (Auto) 1.4 (1.2-3.8) 10^3/uL [place] # (Auto) 0.7 (0.3-0.8) 10^3/uL Eos # (Auto) 0.1 (0.0-0.7) 10^3/uL Baso # (Auto) 0.1 (0.0-0.1) 10^3/uL Abs Immat Gran (auto) 0.04 H (0.00-0.03) 10^3/uL Imm/Tot Granulo (auto) 0.4 (0.0-0.5) % Sodium 139 (136-145) mmol/L Potassium 3.8 (3.5-5.1) mmol/L Chloride 102 (98-107) mmol/L Carbon Dioxide 28.6 (21.0-32.0) mmol/L Anion Gap 12.2 BUN 11.0 (7.0-18.0) mg/dL Creatinine 0.91 (0.55-1.02) mg/dL Est GFR ( Amer) >60 (>=60 mL/min/1.73m^2) Est GFR (Non-Af Amer) >60 (>=60 mL/min/1.73m^2) BUN/Creatinine Ratio 12.1 Glucose 100 (74-106) mg/dL Calcium 8.9 (8.5-10.1) mg/dL Total Bilirubin 0.3 (0.2-1.0) mg/dL AST 10 L (15-37) U/L ALT 15 (14-59) U/L Alkaline Phosphatase 81 (46-116) U/L Total Protein 6.7 (6.4-8.2) g/dL Albumin 3.6 (3.4-5.0) g/dL Globulin 3.1 g/dL Albumin/Globulin Ratio 1.2 Urine Color Yellow (YELLOW) Urine Clarity Clear (CLEAR) Urine pH 6.0 (5.0-9.0) Ur Specific [place] 1.010 (1.005-1.025) Urine Protein Negative (NEG/TRACE) mg/dL Urine Glucose (UA) Negative (NEGATIVE) mg/dL Urine Ketones Negative (NEGATIVE) mg/dL Urine Occult Blood Negative (NEGATIVE) Urine Nitrite Negative (NEGATIVE) Urine Bilirubin Negative (NEGATIVE) Urine Urobilinogen 0.2 (0.2-1.0) EU/dL Ur Leukocyte Esterase Negative (NEGATIVE) Urine RBC 0-2 (0-2) #/HPF Urine WBC None seen (NONE SEEN) #/HPF Ur Squamous Epith Cells Rare (NONE/RARE) #/LPF Urine Crystals None seen (None Seen) #/HPF Urine Bacteria None seen (NONE SEEN) #/HPF Urine Casts None seen (NONE SEEN) #/LPF Urine Mucus None seen (NONE SEEN) Ur Culture Indicated? No Urine HCG, Qual Negative (NEGATIVE) Salicylates 12.7 (<=19.9) mg/dL Urine Opiates Screen Negative (NEGATIVE) Ur Buprenorphine Scrn Negative (NEGATIVE) Ur Oxycodone Screen Negative (NEGATIVE) Urine Methadone Screen Negative (NEGATIVE) Acetaminophen <2.0 L (10.0-30.0) ug/mL Ur Barbiturates Screen Negative (NEGATIVE) U Tricyclic Antidepress Negative (NEGATIVE) Ur Phencyclidine Scrn Negative (NEGATIVE) Ur Amphetamines Screen Negative (NEGATIVE) U Methamphetamines Scrn Negative (NEGATIVE) U Benzodiazepines Scrn Negative (NEGATIVE) Urine Cocaine Screen Negative (NEGATIVE) U Cannabinoids Screen Positive A (NEGATIVE) Ethanol Quant <3 mg/dL Discharge Plan Discharge Chief Complaint: Psychiatric Symptoms Clinical Impression: Schizoaffective disorder, Suicidal ideation, Acute anxiety, Major depressive disorder Patient Disposition: [facility] Time of Disposition Decision: 16:44 Discharge Location: [facility]
== END 2025-01-02 18:20 ==
PROVIDERS: Emergency Provider Emergency Medicine
DX: F25.9 Schizoaffective disorder, unspecified (principal); R45.851 Suicidal ideations; F41.9 Anxiety disorder, unspecified; F32.A Depression, unspecified
CPT/HCPCS: 36415; 80053; 80179; 80307; 80320; 80329; 81001; 84703; 85025; 99285; J1630; J3486